=== PATIENT | female | born 1995 | race Caucasian/White ===

== ENCOUNTER 2016-09-22 03:01 | Emergency (ER) | payer OTHER ==
[~2016-09-22] VITALS: Ht 160 cm; Wt 62.5 kg
[2016-09-22 03:03] VITALS: TEMP 36.6; Ht 160 cm; Wt 62.5 kg
[2016-09-22] MEDS ORDERED: LORAZEPAM 1 MG TAB PO STA (03:27)
[2016-09-22] MEDS ORDERED: LORAZEPAM 2 MG/ML 1 ML VIAL IM STA (03:37)
[2016-09-22] MEDS ORDERED: HALOPERIDOL LACTATE 5 MG/ML 1 ML VIAL IM STA (03:37)
[2016-09-22 04:23] LABS: PREG INTERNAL NEGATIVE QC NEG CLEAR BACKGROUND; PREG INTERNAL POSITIVE QC POS CONTROL LINE
[2016-09-22 04:24] LABS: BUN/CREATININE RATIO 12.7 (10-20); CALCIUM 9.1 mg/dl (8.5-10.1); CREATININE 0.93 mg/dl (0.60-1.20); POTASSIUM 3.8 mmol/L (3.5-5.1)
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
[2016-09-22 08:08] VITALS: BP 115/82; PULSE 105; O2SAT 95
== END 2016-09-22 08:12 | disposition home or self-care (01) ==
LOC: C.EDA 03:01 → EDBD 03:01 → C.EDA 08:12
DX: F10.129 Alcohol abuse with intoxication, unspecified (principal); Y90.8 Blood alcohol level of 240 mg/100 ml or more

== ENCOUNTER → 2016-10-23 | Outpatient (CLI) | payer OTHER | END | disposition home or self-care (01) | LOC: C.LAB 04:20 | DX: Z02.83 Encounter for blood-alcohol and blood-drug test (principal) ==

== ENCOUNTER 2018-02-05 01:31 | Emergency (ER) | payer BC, OTHER ==
[~2018-02-05] VITALS: Ht 160 cm; Wt 70.0 kg
[2018-02-05] MEDS ORDERED: HALOPERIDOL LACTATE 5 MG/ML 1 ML VIAL IM STA ×2 (01:43→02:14)
[2018-02-05] MEDS ORDERED: LORAZEPAM 2 MG/ML 1 ML VIAL IM STA ×2 (01:43→02:14)
[2018-02-05 01:45] VITALS: TEMP 36.5; Ht 160 cm; Wt 70.0 kg
[2018-02-05] MEDS ORDERED: HALOPERIDOL LACTATE 5 MG/ML 1 ML VIAL ONE (01:47)
[2018-02-05 02:00] VITALS: O2SAT 96
[2018-02-05 02:37] LABS: CALCIUM 8.5 mg/dl (8.5-10.1); CREATININE 0.93 mg/dl (0.60-1.20); POTASSIUM 3.3 mmol/L (3.5-5.1)
--- NOTE | 2018-02-05 12:30 | DIAGNOSTIC IMAGING REPORT ---
L-SPINE MIN 4 VIEWS ROUTINE HISTORY: Pain LBP/R hip pain COMPARISON: None. FINDINGS: Nondisplaced cortical fracture sacrococcygeal junction. Age is uncertain. The lumbar spine is otherwise negative. No subluxation. Disc spaces are preserved. IMPRESSION: Nondisplaced cortical fracture sacrococcygeal junction. This is of uncertain age.. Otherwise negative lumbar spine. The above report was generated using voice recognition software. It may contain grammatical, syntax or spelling errors. Electronically signed by: Alec Jeff M.D. 02/05/2018 12:29 PM Dictated Date/Time: 02/05/2018 12:27 PM
--- NOTE | 2018-02-05 12:31 | DIAGNOSTIC IMAGING REPORT ---
R HIP UNILATERAL 2 VIEWS CLINICAL HISTORY: LBP/R hip pain pain COMPARISON: None. DISCUSSION: The bones and joint spaces appear intact. There is no evidence of fracture, dislocation or bony disease. Potential mild congenital dysplastic change. No evidence for acetabular protrusion. IMPRESSION: 1. No acute bony abnormality. 2. Mild dysplastic change presumably congenital. The above report was generated using voice recognition software. It may contain grammatical, syntax or spelling errors. Electronically signed by: Alec Jeff M.D. 02/05/2018 12:30 PM Dictated Date/Time: 02/05/2018 12:29 PM
[2018-02-05 12:50] VITALS: BP 98/59; PULSE 103; O2SAT 97
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
== END 2018-02-05 13:05 | disposition home or self-care (01) ==
LOC: EDBD 01:31 → C.EDC 01:31 → C.EDB 13:05
DX: F10.929 Alcohol use, unspecified with intoxication, unspecified (principal); S32.2XXA Fracture of coccyx, initial encounter for closed fracture; X58.XXXA Exposure to other specified factors, initial encounter; Y90.8 Blood alcohol level of 240 mg/100 ml or more; F17.200 Nicotine dependence, unspecified, uncomplicated

== ENCOUNTER 2018-02-28 04:52 | Emergency (ER) | payer BC ==
[~2018-02-28] VITALS: Ht 160 cm; Wt 69.4 kg
[2018-02-28 04:59] VITALS: TEMP 36.8; Ht 160 cm; Wt 69.4 kg
--- NOTE | 2018-02-28 05:29 | EMERGENCY ROOM VISIT NOTE ---
History Report prepared by [place]: Michelle Sewell Under the Supervision of: Dr. Elaine Burroughs D.O. First contact with patient: 05:07 Chief Complaint: DIZZY Stated Complaint: LIGHTHEADED, DIZZY, CONGESTION History of Present Illness The patient is a 23 year old female who presents to the Emergency Room with complaints of persistent sinus congestion that started 4 days ago. The patient rates her discomfort a 2/10 in severity. The patient reports her congestion is making her feel "off" and dizzy. She notes she has not slept well lately. She states she feels like she is in a bubble and it is making her anxious. She notes she was unable to hear people well and was not seeing things normally at work today. She reports she felt lightheaded as if she is going to pass out during work. She states the nurse at work took her blood pressure which was 174/ 118 and she recommended she get checked in the ED. The patient reports she has been under more stress recently since she works overnight shifts and is taking classes during the day. 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 The patient states she took a plan B pill yesterday morning after having unprotected sex. Source of History: patient Onset: 4 days ago Position: nose Symptom Intensity: 2/10 Quality: other (congestion) Timing: other (persistent) Note: Additional symptoms: lightheaded. Review of Systems See HPI for pertinent positives & negatives. A total of 10 systems reviewed and were otherwise negative. Past Medical & Surgical Surgical Problems: (1) Hx of tonsillectomy Family History Cancer Social History Smoking Status: Current Every Day Smoker Alcohol Use: none Marital Status: in relationship Occupation Status: employed Current/Historical Medications Scheduled Amoxicillin (Amoxil), 500 MG PO TID Amphetamine-Dextroamphetamine 15MG (Adderall Xr 15MG), 15 MG PO DAILY Allergies Coded Allergies: No Known Allergies (Verified , 02/28/18) Physical Exam Vital Signs Date Time Temp Pulse Resp B/P (MAP) Pulse Ox O2 Delivery O2 Flow Rate FiO2 02/28/18 06:29 100 20 162/106 100 Room Air 02/28/18 04:59 36.8 74 18 156/107 99 Room Air Physical Exam HEENT: Head - normocephalic and atraumatic Pupils are equal, round, and reactive to light. Extraocular eye muscles are intact, and sclera are anicteric. Nose - moist nasal mucosa without discharge. Mouth - moist buccal mucosa. Oropharynx is nonerythematous and there is no tonsillar exudate or edema noted. Ears - TMs clear. Neck: Supple; no JVD, nuchal rigidity, cervical lymphadenopathy, or auscultated bruits. Heart: Regular rate and rhythm. There is a normal S1 and S2 with no murmurs, clicks, or gallops appreciated. Lungs: Clear to auscultation bilaterally with no wheezes, rales, or rhonchi. Abdomen: Soft, completely nontender, nondistended, with good bowel sounds. There are no palpable pulsatile masses or hepatosplenomegaly. There is no guarding, rigidity, or rebound noted. Extremities: No evidence of cyanosis, clubbing, or edema. There are easily palpable peripheral pulses. Skin: warm and dry with good turgor and no rashes. Medical Decision & Procedures Laboratory Results Laboratory results per my review. ECG Per My Interpretation Indication: other (near syncope) Rate (beats per minute): 104 Rhythm: sinus tachycardia Findings: no acute ischemic change, no ectopy, other (no ST segment change) ED Course 0513: Past medical records reviewed. The patient was evaluated in room A9B. A complete history and physical exam was performed. A 12-lead EKG was obtained. 0600: I reevaluated the patient. She is refusing to have labs drawn here and states she wants to have them drawn by her PCP. I told her she would need clearance from her PCP and/or employee health to return to work since she was hypertensive and describes having a near syncopal event on the medical floor today. Medical Decision The patient is a 13 year old female who presents to the Emergency Department with sinus congestion and dizziness. Differential diagnosis includes near syncope, sinus infection, sinusitis, sleep deprivation, anxiety, panic. This is a 23-year-old female patient presents to the emergency department from work upstairs stating that she has a fullness and congestion in her head and ears and nearly passed out. The patient has a history of previous sinus infections. She admits that she became anxious as a result of feeling this pressure and congestion in her head and ears. She did try to take some Mucinex but this did not help. The patient described feeling lightheaded and nearly passing out while working as a JOURNEY[employer]. The patient is tearful and anxious on my physical exam and history taking. I requested that we get some laboratory studies on the patient to rule out causes as to why she may have been near syncopal. She declined wanting to have a workup done here and insisted upon being discharged home. I explained to the patient that she would need to follow -up with her PCP and/or employee health with regards to the episode of nearly passing out while at work. Explained that we could expedite the workup process here but she declined stating that she would feel more comfortable following up with her own doctor. I explained to the patient that I will treat her for a sinus infection with amoxicillin and encouraged her to use a decongestant such as Sudafed. She was told return to the emergency department at anytime if she has worsening symptoms. Medication Reconcilliation Current Medication List: was personally reviewed by me Blood Pressure Screening Patient's blood pressure: Elevated blood pressure Blood pressure disposition: Elevated BP felt to be situational Impression Primary Impression: Sinusitis Additional Impression: Near syncope Scribe Attestation The scribe's documentation has been prepared under my direction and personally reviewed by me in its entirety. I confirm that the note above accurately reflects all work, treatment, procedures, and medical decision making performed by me. Departure Information Dispostion Home / Self-Care Prescriptions Amoxicillin (AMOXIL) 500 Mg Cap 500 MG PO TID, #21 CAP Prov: Elaine Burroughs D.O. 02/28/18 Referrals No Doctor, Assigned (PCP) Patient Instructions My [facility] Additional Instructions You will need medical clearance from your PCP and employee health to return to work Amoxil every 8 hours for the sinus infection Take sudafed for the nasal congestion Problem Qualifiers Primary Impression: Sinusitis Sinusitis location: maxillary Chronicity: acute Recurrence: non-recurrent Qualified Codes: J01.00 - Acute maxillary sinusitis, unspecified
[2018-02-28] MEDS ORDERED: AMOX500C3 PO (06:12)
[2018-02-28] MEDS ORDERED: AMPH15CA7 PO (06:16)
[2018-02-28 06:29] VITALS: BP 162/106; PULSE 100; O2SAT 100
== END 2018-02-28 06:30 | disposition home or self-care (01) ==
LOC: C.EDB 04:53 → C.EDA 06:30
DX: J01.00 Acute maxillary sinusitis, unspecified (principal); R55 Syncope and collapse; F17.200 Nicotine dependence, unspecified, uncomplicated

== ENCOUNTER 2023-08-17 17:07 | Inpatient (IN) ==
[2023-08-17 18:38] LABS: Basophils # (auto) 0.06 K/uL (0.00-0.20); Basophils % (auto) 0.6 %; Eosinophils # (auto) 0.15 K/uL (0.00-0.50); Eosinophils % (auto) 1.4 %; Hematocrit (blood only) 38.6 % (37.0-47.0); Hemoglobin 12.8 g/dl (12.0-16.0); Immature Granulocytes # (auto) 0.08 K/uL (0.01-0.20); Immature Granulocytes % (auto) 0.8 %; Lymphocytes # (auto) 1.56 K/uL (1.20-3.40); Lymphocytes % (auto) 14.6 %; Mean Corpuscular Hemoglobin 30.5 pg (25.0-34.0); Mean Corpuscular Hgb Conc 33.2 g/dL (32.0-36.0); Mean Corpuscular Volume 91.9 fL (80.0-100.0); Mean Platelet Volume 11.3 fL (9.4-12.4); Monocytes # (auto) 0.73 K/uL (0.11-0.59); Monocytes % (auto) 6.8 %; Neutrophils # (auto) 8.08 K/uL (1.40-6.50); Neutrophils % (auto) 75.8 %; Platelet Count 256 K/uL (130-400); RDW Coefficient of Variation 11.9 % (11.5-14.5); RDW Standard Deviation 39.7 fL (36.4-46.3); White Blood Count 10.66 K/ul (4.8-10.8)
[2023-08-17 18:40] LABS: Total Protein Urine Random 10.6 mg/dl (0-11.9)
[2023-08-17 18:46] LABS: Creatinine Urine Random 65.7 mg/dl; Protein Creatinine Ratio Urine 0.2 (0-0.2)
[2023-08-17 18:50] LABS: Albumin Globulin Ratio 1.2 (0.9-2); Albumin Level 3.7 gm/dl (3.4-5.0); Bilirubin,Total 0.3 mg/dl (0.2-1.0); Calcium 9.1 mg/dl (8.6-10.3); Creatinine Clr Calc Pharmacy 148.6 ml/min; Est GFR (Non-African American) 122.5 ml/min; Globulin 3.1 gm/dl (2.5-4.0); Potassium 4.1 mmol/L (3.5-5.1); Total Protein 6.8 gm/dl (6.0-8.3)
[2023-08-17] MEDS ORDERED: LIDOCAINE 1% LOCAL 20 ML VIAL INFIL PRN (20:30)
[2023-08-17] MEDS ORDERED: OXYTOCIN 30 UNITS/NSS 30 UNITS/500 ML BAG IV PRN (20:30)
--- NOTE | 2023-08-17 20:53 | History & Physical Report ---
Date of Service August 17, 2023 Assessment & Plan (1) Gestational hypertension: Plan: Induction of labor with Cytotec for ripening History of Present Illness Chief Complaint: high blood pressure Primary Care Provider: Bess King MD 28 F P0000 at 37.4 weeks admitted after being seen earlier today by psych pro vider and found to have elevated blood pressure with swelling and headache. Her has been uncomplicated. GBS is negative. Allergies Allergy/AdvReac Type Severity Reaction Status Date / Time No Known Allergies Allergy Verified 08/17/23 18:27 Home Medications Medication Instructions Recorded Confirmed Type dextroamphetamine-amphetamine ER 30 mg PO QAM 10/20/20 08/17/23 History 30 mg 24hr capsule,extend release albuterol sulfate 90 mcg/actuation 2 puffs inhalation QID PRN 10/21/20 08/17/23 Rx aerosol inhaler (Ventolin HFA) shortness of breath or wheezing #8.5 grams vits no.124-ferrous fum 1 tab PO DAILY 08/17/23 08/17/23 History 27 mg iron-folic acid 800 mcg tablet ( Vitamin) Patient History Medical History No acute medical problems Anxiety ADHD Surgical History Hx of tonsillectomy History of appendectomy No significant past surgical history Social History Smoking Status: Current every day smoker Tobacco Type: Cigarettes Cigarettes Per Day: 5; Second Hand Exposure: Yes; Hx Alcohol Use: No Hx Substance Use: No Preferred Language: Uzbek Beliefs That Will Affect Care: None marital status: Single Current Living Situation: Significant Other current occupational status: unemployed Other Information That Helps Us Care for You: No Feels Safe at Home: Yes Safety Concerns: Feels Safe At This Time Assistive Devices: None 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 no RUQ pain. Musculoskeletal: lower extremities with 1+ pitting edema Skin: no rashes, warm and dry Neurologic: patellar DTR's 2+ bilat, sensation intact Psychiatric: A+Ox3, euthymic affect Genitourinary: no vaginal lesions, no adnexal mass normal external appearance Manual OB Exam: + cervical dilation fingertip, + cervical effacement 50% and + station high OB Exam Monitor Tracing: + external FHT monitor used, + external uterine monitor used, + category I and + normal FHT variability EFW 7.5 lbs Results & Data Vital Signs (Past 12 Hours) Vital Signs Temp Pulse Resp BP 08/17/23 19:44 100 H 08/17/23 19:44 138/92 08/17/23 19:14 101 H 08/17/23 19:14 147/94 H 08/17/23 18:44 102 H 08/17/23 18:44 137/98 08/17/23 18:00 104 H 08/17/23 18:00 167/100 H 08/17/23 17:49 103 H 08/17/23 17:49 143/91 H 08/17/23 17:40 100 H 08/17/23 17:40 147/93 H 08/17/23 17:31 105 H 08/17/23 17:31 163/101 H 08/17/23 17:27 36.8 C 18 08/17/23 17:20 109 H 151/92 H Laboratory Results Laboratory Results - last 72 hr 08/17/23 08/17/23 18:05 18:18 WBC 10.66 RBC 4.20 Hgb 12.8 Hct 38.6 MCV 91.9 MCH 30.5 MCHC 33.2 RDW Std Deviation 39.7 RDW Coeff of Anibal 11.9 Plt Count 256 MPV 11.3 Immature Gran % (Auto) 0.8 Neut % (Auto) 75.8 Lymph % (Auto) 14.6 Castro % (Auto) 6.8 Eos % (Auto) 1.4 Baso % (Auto) 0.6 Neut # (Auto) 8.08 H Lymph # (Auto) 1.56 Castro # (Auto) 0.73 H Eos # (Auto) 0.15 Baso # (Auto) 0.06 Immature Gran # (Auto) 0.08 Sodium 133 L Potassium 4.1 Chloride 102 Carbon Dioxide 22 Anion Gap 9 BUN 14 Creatinine 0.61 Est Cr Clr Drug Dosing 148.6 Est GFR ( Amer) 142.0 Est GFR (Non-Af Amer) 122.5 BUN/Creatinine Ratio 23.0 H Glucose 69 L Calcium 9.1 Total Bilirubin 0.3 AST 12 L ALT 10 Alkaline Phosphatase 99 Total Protein 6.8 Albumin 3.7 Globulin 3.1 Albumin/Globulin Ratio 1.2 Ur Random Creatinine 65.7 U Random Total Protein 10.6 Protein/Creatinin Ratio 0.2 Code Status & VTE Plan VTE Prophylaxis Plan VTE Prophylaxis will be ordered: No Monitoring External Monitor Cat 1 (1) Gestational hypertension Trimester: third trimester Qualified Code(s): O13.3 - Gestational [- induced] hypertension without significant proteinuria, third trimester
[2023-08-17] MEDS: miSOPROStoL 50 MCG TAB PO STA (23:30)
[2023-08-17] MEDS: miSOPROStoL 50 MCG TAB ONE (23:31)
[2023-08-18] MEDS: miSOPROStoL 50 MCG TAB PO SCH (03:25)
--- OUTSIDE RECORDS SUMMARY | 2023-08-18 08:27 | External Medical Summary | Summary of Care ---
Author Name Unknown Organization [facility] Address [address] [place] [facility] [place] [address] Phone [phone] Care Team Providers Care Desk Maker Name Role Phone Bess King MD Primary Care Provid er Reason for Visit * Reason Comments Return Visit Encounter Details Date Type Department Care Team (Late st Contact Info) Description 08/01/2023 9:30 AM EST [facility] [address] [place] [address] Leonora Bal CRNP [address] [place] [address] High-risk in third trimester*; Medication exposure during first trimester of ; complicated by tobacco use in third trimester; Attention deficit hyperactivity disorder (ADHD), combined type Allergies Active Allergy Reactions Criticality Noted Date Comments Pollen Medium 09/12/2020 documented as of this encounter (statuses as of 08/01/2023) Medications Medication Sig Dispensed Refills Start Date End Date Status -1 MG Oral Tablet Chewable Take by mouth. 0 Active Amphetamine-Dextroamph et ER 25 MG Oral Capsule Extended Release 24 Hour Take 1 Capsule by mouth in the morning. 0 Active Amphetamine-Dextroamph etamine 30 MG Oral Tablet Take 1 Tablet by mouth in the morning. Patient reports that this dose is only as needed . 0 Active Famotidine 20 MG Oral Tablet (Pepcid AC Maximum Strength) Take 1 Tablet by mouth in the morning and 1 Tablet before bedtime. 0 Active documented as of this encounter (statuses as of 08/01/2023) Active Problems Problem Noted Date Diagnosed Date Tobacco use 06/30/2023 Medication exposure during first trimester of pr egnancy 01/12/2023 Overview: Amphetamine-Dextroamphet (Adderall) in for ADHD. Follows with Psych, [facility] in [place], [place] Patient wishes to continue Adderall throughout her . States she has been on this for "a long time" and can't manage without it. Reports she is unable to function at work or home without this medication. Patient states she has not tried other medications because the Adderall is working well for her. States she sees her psych every 3 months-next visit is in February. She has not yet informed psych that she is . Discussed with patient the information below; discussed reducing dose during ; patient states she will consider this. Adderall (dextroamphetamine/amphetamine). Crosses Placenta. There are no adequate and well-controlled studies in women. Amphetamines should be used during only if the potential benefit justifies the potential risk to the fetus. Nonteratogenic Effects: Infants born to women who are dependent on amphetamines have an increased risk of premature delivery, low weight, and may experience symptoms of withdrawal (dysphoria, agitation, and significant lassitude). Last Assessment & Plan: She presents for a anatomy survey. She has a history of ADHD treated with Adderall as well as tobacco use. Labs reviewed: -- cffDNA low risk for aneuploidy We reviewed the results of today's ultrasound. The estimated weight is appropriate for gestational age. The visualized anatomy is unremarkable in appearance. The distal spine is suboptimally imaged secondary to position. The amniotic fluid amount appears normal. We discussed that ultrasound is not able to identify all anomalies, but it is reassuring that no anomalies were seen today. We reviewed the plan for serial follow-up of growth secondary to Adderall use. Tobacco use complicating 01/12/2023 Overview: Currently smoking 1/2 ppd Down from 1 ppd prior to Recommended cessation in .. Last Assessment & Plan: She continues to smoke. She reports variable amounts depending on the day. Cessation encouraged. We discussed some cessation aids. Attention deficit hyperactiv ity disorder (ADHD), combined type 01/12/2023 Overview: Managed with Adderall ER 25 mg daily Takes Adderall 30mg as needed. Patient states she took the as needed dose yesterday. Managed by (psych) [facility] in [place], [place] Patient reports that she usually ends up requiring the PRN dose in the afternoon at work; doesn't usually need this dose on day off. High-risk 01/12/2023 Last Assessment & Plan: 06/16/2023 Tdap Vaccine administered per clinic protocol. Pt given VIS(vaccine information sheet) Cathie Mcgrath LPN Compression fracture of T12 vertebra 11/26/2016 Spasm of thoracic back muscle 11/26/2016 Controlled substance agreement signed 11/20/2016 Estimated Date of Delivery Comme nts Yes 09/03/2023 Based on Ultraso und documented as of this encounter (statuses as of 08/01/2023) Resolved Problems Problem Noted Date Diagnosed Date Resolved Date Supervision of high risk pre gnancy in first trimester 01/17/2023 03/09/2023 Dysuria 09/26/2014 11/19/2016 Urinary frequency 09/26/2014 11/19/2016 Urgency of urination 09/26/2014 017 documented as of this encounter (statuses as of 08/01/2023) Immunizations Name Administration Dates Next Due HPV Vaccine, 9-Valent 06/21/2019 07/22/2019 PPD 05/19/2020, 0,01/17/2014,12/03 Pneumococcal Polysaccharide PPV23 (Pneumovax) 06/21/2019 Seasonal Influenza, PF, 6 M & above, IM , (FluLaval or Fluzone) 05/08/2020,04/02/2019 Seasonal Influenza, Split, I IV3, With Preserve, Inj 03/08/2017,06/13/2014 TDAP (age 10 and older)(Boostrix) 06/16/2023,05/2014 documented as of this encounter Social History Tobacco Use Types Packs/Day Years Used Date Smoking Tobacco: Every Day Cigarettes 0.5 4 Smokeless Tobacco: Never Comments:Smokes cigarettes a bout 1/2 ppd Prior to : 1 ppd Alcohol Use Standard Drinks/Week Comments Not Currently 0 (1 standard drink = 0.6 oz pur e alcohol) Occasionally on weekends AUDIT-C Answer Date Recorded Frequency of Alcohol Consumption 2-4 times a tue06/21/2019 Average Number of Drinks 1 or 2 019 Frequency of Binge Drinking Never 06/03 PHQ-2 Answer Date Recorded PHQ Adult Total Score 0 09/12/2020 Hunger Vital Sign Answer Date Recorded Within the past 12 months, y ou worried that your food would run out before you got the money to buy more. Never true 01/11/20 23 Within the past 12 months, t he food you bought just didn't last and you didn't have money to get more. Never true 2023 [place] Depression Scale Answer Date Recorded [place] Depression Scale Total 6 07/13/2023 The thought of harming myself has occurred to me . Never 07/13/2023 Estimated Date of Delivery Comme nts Yes 09/03/2023 Based on Ultraso und Sex and Gender Information Value Date Recorded Sex Assigned at Female 2023 3:26 PM EDT Gender Identity Female 2023 3:26 PM EDT Sexual Orientation Straight 10/28/2020 11 :44 AM EDT Job Start Date Occupation Industry Not on file Not on file Not on file documented as of this encounter Last Filed Vital Signs Vital Sign Reading Time Taken Comments Blood Pressure 136/88 08/01/2023 10:02 AM EST Pulse - - Temperature - - Respiratory Rate - - Oxygen Saturation - - Inhaled Oxygen Concentration - - Weight 91.2 kg (201 lb) 08/01/2023 10:02 AM EST Height - - Body Mass Index 35.61 07/13/2023 3:19 PM EST documented in this encounter Progress Notes * Leonora Bal CRNP - 08/01/2023 10:05 AM EST 35w2d Baby moving well. Educated on [facility] and when to call. Reviewed labor instructions. No regular ctx, leaking, bleeding. Given letter for work restrictions. Sees [facility] for routine growth scans. Discussed contraception - did not like irregular bleeding w/Nexplanon and had difficulty remembering OCPs. Discussed option of IUD, brochures for Paragard and Mirena provided. 1 week return, discussed GBS swab to be completed at that visit. 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 documented in this encounter Plan of Treatment Upcoming Encounters Date Type Department Care Team (Late st Contact Info) Description 08/11/2023 2:15 PM EST Office Visit Gynecology/Obstetrics [facility] [address] [place] [address] Leonora Bal CRNP [address] [place] [address] 08/18/2023 1:00 PM EST [facility] [address] [place] [id number] 08/18/2023 2:15 PM EST Office Visit Gynecology/Obstetrics [facility] [address] [place] [address] Vale Saleh CRNP [address] [place] [address] 08/25/2023 2:15 PM EST Office Visit Gynecology/Obstetrics [facility] [address] [place] [address] Leonora Bal CRNP [address] [place] [address] 09/01/2023 2:15 PM EST Office Visit Gynecology/Obstetrics Lamonte Manuel [address] [place] [address] Vale Saleh CRNP [address] [place] [address] Health Maintenance Due Date Last Done Comments GARDASIL-HPV IMMUNIZATION SERIES (2 - 3-dose series) 07/19/2019 06/21/2019 Pneumococcal Vaccine: Pediatrics (0 to 5 Years) and At-Risk Patients (6 to 64 Years) (2 - PCV) 06/21/2020 06/21/2019 Depression Screening 09/12/2021 09/12/2020 COVID-19 Vaccine (4 - 2022-24 season) 2023 05/21/2021, 11/05/2020, 10/15/2020 Influenza Vaccine (FLU shot) (#1) 2023 04/06/2022, 05/08/2020, 05/08/2020, Additional history exists Pap Smear 2026 2023, 06/03, 03/25/2016, Additional history exists DTaP,Tdap,and Td Vaccines (8 - Td or Tdap) 06/16/2033 06/16/2023, 06/13/2014, 02/17/1999, Additional history exists MENINGOCOCCAL (MENACTRA/MENVEO) Aged Out No longer eligible based on patient's age to complete this topic documented as of this encounter Medical Devices Not on filedocumented as of this encounter Visit Diagnoses Diagnosis High-risk in third trimester- Primary Medication exposure during first trimester of Supervision of other high-risk complicated by tobacco use in third trimester Attention deficit hyperactivity disorder (ADHD), combined type documented in this encounter Care Teams Desk Maker Relationship Specialty Start Date End Date Bess King MD [address] [place] [facility] [place] [address] PCP - General Family Medicine 07/01/22 documented as of this encounter
--- OUTSIDE RECORDS SUMMARY | 2023-08-18 08:27 | External Medical Summary | Summary of Care ---
Author Name Unknown Organization [facility] Address [address] [place] [address] Phone [phone] Care Team Providers Care Raw Stock Machine Feeder Name Role Phone Bess King MD Primary Care Provid er Encounter Details Date Type Department Care Team (Late st Contact Info) Description 08/03/2023 Telephone Gynecology/Obstetrics [facility] [address] [place] [address] Back[place], AVANI Rosas [address] [place] [address] Allergies Active Allergy Reactions Criticality Noted Date Comments Pollen Medium 09/12/2020 documented as of this encounter (statuses as of 08/03/2023) Medications Medication Sig Dispensed Refills Start Date End Date Status 19 29-1 MG Oral Tablet Chewable Take by mouth. [...] as of this encounter (statuses as of 08/03/2023) Active Problems Problem Noted Date Diagnosed Date Tobacco use 06/30/2023 Medication exposure during first trimester of pr egnancy 01/12/2023 Overview: Amphetamine-Dextroamphet (Adderall) in for ADHD. Follows with Psych, [facility] in [place], [place] Patient wishes to continue Adderall throughout [...] as needed dose yesterday. Managed by (psych) [facility] in [place], [place] Patient reports that she usually ends up [...] as of this encounter (statuses as of 08/03/2023) Resolved Problems Problem Noted Date Diagnosed Date Resolved Date Supervision of high risk pre gnancy in first trimester 01/17/2023 03/09/2023 Dysuria 09/26/2014 11/19/2016 Urinary frequency 09/26/2014 11/19/2016 Urgency of urination 09/26/2014 017 documented as of this encounter (statuses as of 08/03/2023) Immunizations Name Administration Dates Next Due HPV [...] money to get more. Never true 2023 [place] Depression Scale Answer Date Recorded [place] Depression Scale Total 6 07/13/2023 The thought [...] on file documented as of this encounter Miscellaneous Notes * Telephone Encounter - Sydney Kulkarni LPN - 08/03/2023 1:22 PM EST Pt calling in again requesting letter for light duty. She states hands, and bilat lower extremity swelling. 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 She is wearing compression socks but feels the swelling is getting worse and not going down. She states the swelling is painful and she has been having a lot of back pain from standing, pushing her med cart andresidents. I reviewed with Leonora Bal who requested the pt contact her employer for the specifications oflight duty and what a letter would need to entail. Advised pt to contact her employer for this information and to send us a MyG so that we can forward the message to the provider to review and provide letter if able. Pt verbalized understanding. documented in this encounter Plan of Treatment Upcoming Encounters Date Type Department Care Team (Late st Contact Info) Description 08/11/2023 2:15 PM EST Office Visit Gynecology/Obstetrics [facility] [address] [place] [address] Leonora Bal CRNP [address] [place] [address] 08/18/2023 1:00 PM EST Imaging Maternal Medicine Imaging, Shyla [facility] [phone] 08/18/2023 2:15 PM EST Office Visit Gynecology/Obstetrics Lam[facility] Manuel [address] [place] [address] Vale Saleh CRNP [address] [place] [address] 08/25/2023 2:15 PM EST Office Visit Gynecology/Obstetrics Lam[facility] Manuel [address] [place] [address] Leonora Bal CRNP [address] [place] [address] 09/01/2023 2:15 PM EST Office Visit Gynecology/Obstetrics Lamonte Manuel [address] [place] [address] Vale Saleh CRNP [address] [place] [address] Health Maintenance Due Date Last Done Comments GARDASIL-HPV IMMUNIZATION SERIES (2 - 3-dose series) 07/19/2019 06/21/2019 Pneumococcal Vaccine: Pediatrics (0 to 5 Years) and At-Risk Patients (6 to 64 Years) (2 - PCV) 06/21/2020 06/21/2019 Depression Screening 09/12/2021 09/12/2020 COVID-19 Vaccine (2022-24 season) 2023 05/21/2021, 11/05/2020, 10/15/2020 Influenza Vaccine [...] Not on filedocumented as of this encounter Care Teams Raw Stock Machine Feeder Relationship Specialty Start Date End Date Bess King MD [address] [place] [address] PCP - General Family Medicine 07/01/22 documented as of this encounter
--- OUTSIDE RECORDS SUMMARY | 2023-08-18 08:27 | External Medical Summary | Summary of Care ---
Author Name Unknown Organization [facility] Address [address] [facility] [place] [address] Phone [phone] Care Team Providers Care Voice Data Communications Engineer Name Role Phone Bess King MD Primary Care Provid er Reason for Visit * Reason Comments Blood Pressure Check Encounter Details Date Type Department Care Team (Late st Contact Info) Description 08/12/2023 3:30 PM EST Immunization/Inj ection Gynecology/Obstetrics [facility] [address] [place] [address] Gw, Nurse Obgyn Injection [address] [place] [address] BP check* Allergies Active Allergy Reactions Criticality Noted Date Comments Pollen Medium 09/12/2020 documented as of this encounter (statuses as of 08/12/2023) Medications Medication Sig Dispensed Refills Start Date [...] as of this encounter (statuses as of 08/12/2023) Active Problems Problem Noted Date Diagnosed Date Tobacco use 06/30/2023 Medication exposure during first trimester of pr egnancy 01/12/2023 Overview: Amphetamine-Dextroamphet (Adderall) in for ADHD. Follows with Psych, [facility] in [place], [place] Patient wishes to continue Adderall throughout [...] needed dose yesterday. Managed by (psych) [facility] in [place], [place] Patient reports that she usually ends up [...] as of this encounter (statuses as of 08/12/2023) Resolved Problems Problem Noted Date Diagnosed Date Resolved Date Supervision of high risk pre gnancy in first trimester 01/17/2023 03/09/2023 Dysuria 09/26/2014 11/19/2016 Urinary frequency 09/26/2014 11/19/2016 Urgency of urination 09/26/2014 017 documented as of this encounter (statuses as of 08/12/2023) Immunizations Name Administration Dates Next Due HPV [...] money to get more. Never true 2023 [place] Depression Scale Answer Date Recorded [place] Depression Scale Total 6 07/13/2023 The thought [...] Sign Reading Time Taken Comments Blood Pressure 134/84 08/12/2023 3:43 PM EST Pulse - - Temperature - - Respiratory Rate - - Oxygen Saturation - - Inhaled Oxygen Concentration - - Weight - - Height - - Body Mass Index - - documented in this encounter Nursing Notes * Sydney Kulkarni LPN - 08/12/2023 3:50 PM EST BP check today- reviewed with Leonora Bal in office. Pt to f/u again with next OB visit and to call sooner with onset of [place]/vision changes, unexplained swelling, decreased movement, or new symptoms. Pt verbalized understanding. documented in this encounter Plan of Treatment Upcoming Encounters Date Type Department Care Team (Late st Contact Info) Description 08/18/2023 1:00 PM EST Imaging Maternal Medicine Imaging, Shyla Manuel [address] [place] [address] 08/18/2023 2:15 PM EST Office Visit Gynecology/Obstetrics [facility] [address] [place] [address] Vale Saleh CRNP [address] [place], [place] [address] 08/25/2023 2:15 PM EST Office Visit Gynecology/Obstetrics [facility] [address] [place], [place] [address] Leonora Bal CRNP [address] [place] [address] 09/01/2023 2:15 PM EST [facility] [address] [place] [address] Vale Saleh CRNP [address] [place] [address] Health Maintenance Due Date Last Done Comments [...] as of this encounter Visit Diagnoses Diagnosis BP check- Primary Screening for hypertension documented in this encounter Care Teams Voice Data Communications Engineer Relationship Specialty Start Date End Date Bess King MD [address] [place] [address] PCP - General Family Medicine 07/01/22 documented as of this encounter
--- OUTSIDE RECORDS SUMMARY | 2023-08-18 08:27 | External Medical Summary ---
Author Name Unknown Address Unknown Organization K01:[facility] - [address] [facility] [address] Laboratory Report Ordering Provider Test Date Status MALVIN BORDEN 08/11/2023 14:12:14 Final Observation Date Value Abnormality Reference (Units ) Status Streptococcus agalactiae DNA [Presence] in Specimen by NIKOLAI with probe detection 08/11/2023 14:12:14 Negative Negative Final No Group B Streptococcus det ected by culture-enhanced PCR (amplified probe).
The collection of vaginal/rectal swab specimen combinations (FDA approved specimen type) is optimal for the detection of Group B Streptococcus. Single source collection (vaginal only or rectal only) or alternate specimen sources may lead to false negative results. Performing Location [facility] - [address] [facility] [address]
--- OUTSIDE RECORDS SUMMARY | 2023-08-18 08:27 | External Medical Summary | Summary of Care ---
Author Name Unknown Organization [facility] Address [address] [address] Phone [phone] Care Team Providers Care Generator Rebuilder Name Role Phone Bess King MD Primary Care Provid er Reason for Visit * Reason Onset Date Comments Forms Request 08/11/2023 Encounter Details Date Type Department Care Team (Late st Contact Info) Description 08/11/2023 Telephone Gynecology/Obstetrics [facility] [address] [place] [address] Leonora Bal CRNP [address] [place] [address] Forms Request Allergies Active Allergy Reactions Criticality Noted Date Comments Pollen Medium 09/12/2020 documented as of this encounter (statuses as of 08/11/2023) Medications Medication Sig Dispensed Refills Start Date [...] as of this encounter (statuses as of 08/11/2023) Active Problems Problem Noted Date Diagnosed Date Tobacco use 06/30/2023 Medication exposure during first trimester of pr egnancy 01/12/2023 Overview: Amphetamine-Dextroamphet (Adderall) in for ADHD. Follows with Psych, [facility] in [place], [place] Patient wishes to continue Adderall throughout [...] as needed dose yesterday. Managed by (psych) [facility] in [place], [place] Patient reports that she usually ends [...] as of this encounter (statuses as of 08/11/2023) Resolved Problems Problem Noted Date Diagnosed Date Resolved Date Supervision of high risk pre gnancy in first trimester 01/17/2023 03/09/2023 Dysuria 09/26/2014 11/19/2016 Urinary frequency 09/26/2014 11/19/2016 Urgency of urination 09/26/2014 017 documented as of this encounter (statuses as of 08/11/2023) Immunizations Name Administration Dates Next Due HPV [...] money to get more. Never true 2023 [place] Depression Scale Answer Date Recorded [place] Depression Scale Total 6 07/13/2023 The thought [...] encounter Miscellaneous Notes * Telephone Encounter - Deisi Cruz LPN - 08/11/2023 2:34 PM EST Forms completed and on [facility]'s desk for signature. * Telephone Encounter - Deisi Cruz LPN - 08/11/2023 2:13 PM EST FMLA forms received 08/11/2023. Copy for patient and FOB. Would pt like forms faxed no Does pt need notified when done? yes Patient Phone Numbers documented in this encounter Plan of Treatment Upcoming Encounters Date Type Department Care Team (Ariel Contact Info) Description 08/12/2023 3:30 PM EST Immunization/Injec tion Gynecology/Obstetrics Lamonte Manuel [address] [place] [address] Gw, Nurse Obgyn Injection [address] [place] [address] 08/18/2023 1:00 PM EST Imaging Maternal Medicine Imaging, Shyla Manuel [address] [place] [phone] 08/18/2023 2:15 PM EST Office Visit Gynecology/Obstetrics Lamonte Manuel [address] [place] [address] Vale Saleh CRNP [address] [place] [address] 08/25/2023 2:15 PM EST Office Visit Gynecology/Obstetrics Lamonte Manuel [address] [place] [address] Backer, AVANI Rosas [address] [place] [address] 09/01/2023 2:15 PM EST Office Visit Gynecology/Obstetrics Lamonte Manuel [address] [place] [address] Vale Saleh CRNP [address] [place] [address] Health Maintenance Due Date Last Done Comments [...] filedocumented as of this encounter Care Teams Generator Rebuilder Relationship Specialty Start Date End Date Bess King MD [address] [place] [address] PCP - General Family Medicine 07/01/22 documented as of this encounter
--- OUTSIDE RECORDS SUMMARY | 2023-08-18 08:27 | External Medical Summary | Summary of Care ---
Author Name Unknown Organization [facility] Address [address] [place] [address] Phone [phone] Care Team Providers Care Carrot Tier Name Role Phone Bess King MD Primary Care Provid er Encounter Details Date Type Department Care Team (Late st Contact Info) Description 08/02/2023 Telephone Gynecology/Obstetrics [facility] [address] [place] [address] Backer, AVANI Rosas [address] [place] [address] Allergies Active Allergy Reactions Criticality Noted Date Comments Pollen Medium 09/12/2020 documented as of this encounter (statuses as of 08/02/2023) Medications Medication Sig Dispensed Refills Start Date [...] as of this encounter (statuses as of 08/02/2023) Active Problems Problem Noted Date Diagnosed Date Tobacco use 06/30/2023 Medication exposure during first trimester of pr egnancy 01/12/2023 Overview: Amphetamine-Dextroamphet (Adderall) in for ADHD. Follows with Psych, [facility] in [place], [place] Patient wishes to continue Adderall throughout [...] yesterday. Managed by (psych) [facility] in [place], [place] Patient reports that she usually ends up [...] as of this encounter (statuses as of 08/02/2023) Resolved Problems Problem Noted Date Diagnosed Date Resolved Date Supervision of high risk pre gnancy in first trimester 01/17/2023 03/09/2023 Dysuria 09/26/2014 11/19/2016 Urinary frequency 09/26/2014 11/19/2016 Urgency of urination 09/26/2014 017 documented as of this encounter (statuses as of 08/02/2023) Immunizations Name Administration Dates Next Due HPV [...] money to get more. Never true 2023 [place] Depression Scale Answer Date Recorded [place] Depression Scale Total 6 07/13/2023 The thought [...] Telephone Encounter - Sydney Kulkarni LPN - 08/02/2023 3:39 PM EST Pt calling in stating her work will not accept her note for light duty because it is not specific enough. 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 She is asking if the note can be more specific to standing restrictions and weight for pushing. Reviewed with Leonora Bal in office who states there are no real standing restrictions during and ok to push residents and move med cart. Can provide pt with OB restriction letter in addition to letter that was provided at office visit. Reviewed with pt and letter sent via MyG. Advised pt to sit and elevate during 15 minutes breaks along with lunch breaks, compression socks, and pushing lots of fluids. Pt verbalized understanding. documented in this encounter Plan of Treatment Upcoming Encounters Date Type Department Care Team (Late st Contact Info) Description 08/11/2023 2:15 PM EST Office Visit Gynecology/Obstetrics Lam[facility] Manuel [address] [place], [place] [address] Leonora Bal CRNP [address] [place] [address] 08/18/2023 1:00 PM EST Imaging Maternal Medicine Imaging, Shyla Manuel [address] [place] [address] 08/18/2023 2:15 PM EST Office Visit Gynecology/Obstetrics Lamonte Mais [address] [place], [place] [address] Vale Saleh CRNP [address] [place] [address] 08/25/2023 2:15 PM EST Office Visit Gynecology/Obstetrics Lamonte Mais [address] [place], [place] [address] BackLeonora hoyt CRNP [address] [place] [address] 09/01/2023 2:15 PM EST Office Visit Gynecology/Obstetrics Lamonte Mais [address] [place] [address] Vale Saleh CRNP [address] [place] [address] Health Maintenance Due Date Last Done Comments GARDASIL-HPV IMMUNIZATION SERIES (2 - 3-dose series) 07/19/2019 06/21/2019 Pneumococcal Vaccine: Pediatrics (0 to 5 Years) and At-Risk Patients (6 to 64 Years) (2 - PCV) 06/21/2020 06/21/2019 Depression Screening 09/12/2021 09/12/2020 COVID-19 Vaccine ( season) 2023 05/21/2021, 11/05/2020, 10/15/2020 Influenza Vaccine [...] filedocumented as of this encounter Care Teams Carrot Tier Relationship Specialty Start Date End Date Bess King MD [address] [place] [address] PCP - General Family Medicine 07/01/22 documented as of this encounter
--- OUTSIDE RECORDS SUMMARY | 2023-08-18 08:27 | External Medical Summary | Summary of Care ---
Author Name Unknown Organization [facility] Address [address] [place] [facility] [place] [facility] [place] [address] Phone [phone] Care Team Providers Care Rawhide Trimmer Name Role Phone Bess King MD Primary Care Provid er Reason for Visit * Reason Comments Return Visit Encounter Details Date Type Department Care Team (Late st Contact Info) Description 08/11/2023 2:15 PM EST [facility] [address] [place] [address] Leonora Bal CRNP [address] [place] [address] High-risk in third trimester*; Medication exposure during [...] (Adderall) in for ADHD. Follows with Psych, [facility] in [place], [place] Patient wishes to continue Adderall throughout [...] as needed dose yesterday. Managed by (psych) [facility] in [place], [place] Patient reports that she usually ends [...] money to get more. Never true 2023 [place] Depression Scale Answer Date Recorded [place] Depression Scale Total 6 07/13/2023 The thought [...] Sign Reading Time Taken Comments Blood Pressure 138/88 08/11/2023 2:02 PM EST Pulse - - Temperature - - Respiratory Rate - - Oxygen Saturation - - Inhaled Oxygen Concentration - - Weight 94.3 kg (208 lb) 08/11/2023 2:02 PM EST Height - - Body Mass Index 36.85 07/13/2023 3:19 PM EST documented in this encounter Progress Notes * Sydney Kulkarni LPN - 08/11/2023 2:00 PM EST 36w5d Denies vaginal bleeding/rom + movement Ongoing heartburn- taking pepcid * Leonora Bal CRNP - 08/11/2023 1:56 PM EST 36w5d Good activity. No regular ctx or leaking. Had some scant pink streaks when using the rest room, mild cramping. +heartburn. BP noted to be elevated - no proteinuria. Still w/HAs, unchanged. No vision changes or epigastric pain. +swelling, improved at work since on light duty. Discussed warning signs of preE and to call with any new concerns. Recommend BP check tomorrow. Has another growth scan next week. GBS collected today. Toolroom Keeper Documentation Provider requested naprapath. Name of naprapath: AVANI Slaughter LPN documented in this encounter Plan of Treatment Upcoming Encounters Date Type Department Care Team (Late st Contact Info) Description 08/12/2023 3:30 PM EST Immunization/Injec tion Gynecology/Obstetrics Lamonte Mais [address] [place] [address] Gw, Nurse Obgyn Injection [address] [place] [address] 08/18/2023 1:00 PM EST Imaging Maternal Medicine Imaging, Shyla Manuel [address] [place] [phone] 08/18/2023 2:15 PM EST Office Visit Gynecology/Obstetrics Lamonte Mais [address] [place] [address] Vale Saleh CRNP [address] [place] [address] 08/25/2023 2:15 PM EST Office Visit Gynecology/Obstetrics Lamonte Mais [address] [place] [address] Leonora Bal CRNP [address] [place] [address] 09/01/2023 2:15 PM EST Office Visit Gynecology/Obstetrics Lamonte Manuel [address] [place] [address] Vale Saleh CRNP [address] [place] [address] Pending Results Name Type Priority Associated Diagnoses Date /Time GROUP B STREP CULTURE/PCR Lab Routine High-risk in third trimester 08/11/2023 2:12 PM EST Health Maintenance Due Date Last Done Comments GARDASIL-HPV IMMUNIZATION SERIES (2 - 3-dose series) 07/19/2019 06/21/2019 Pneumococcal Vaccine: Pediatrics (0 to 5 Years) and At-Risk Patients (6 to 64 Years) (2 - PCV) 06/21/2020 06/21/2019 Depression Screening 09/12/2021 09/12/2020 COVID-19 Vaccine ( - 2022-24 season) 2023 05/21/2021, 11/05/2020, 10/15/2020 [...] Not on filedocumented as of this encounter Procedures Procedure Name Priority Date/Time Associated Diagnosis Comments URINALYSIS, POINT OF CARE (ENTER/EDIT) Routine 08/11/2023 High-risk in third trimester documented in this encounter Results * URINALYSIS, POINT OF CARE (ENTER/EDIT) (08/11/2023) Color, Urine Light Yellow Yellow or Light Yellow Clarity, Urine Clear Clear Glucose, Urine Negative Negative mg/dL Bilirubin, Urine Negative Negative Ketone, Urine Negative Negative mg/dL Specific [place], Urine 1.010 1.003 - 1.030 Blood, Urine Trace-intact Negative pH, Urine 7.0 5.0 - 7.5 units Protein, Urine Negative Negative mg/dL Urobilinogen, Urine 0.2 0.2 - 1.0 mg/dL Nitrite, Urine Negative Negative Esterase, Urine Negative Negative Urine 08/11/2023 Leonora VAR[facility] POINT O F CARE TEST ENTER/EDIT ORDERABLES documented in this encounter Visit Diagnoses Diagnosis High-risk in third trimester- Primary Medication exposure during first trimester of Supervision of other high-risk complicated by tobacco use in third trimester Attention deficit hyperactivity disorder (ADHD), combined type documented in this encounter Care Teams Rawhide Trimmer Relationship Specialty Start Date End Date Bess King MD [address] [place] [address] PCP - General Family Medicine 07/01/22 documented as of this encounter
--- OUTSIDE RECORDS SUMMARY | 2023-08-18 08:28 | External Medical Summary | Summary of Care ---
Author Name Unknown Organization [facility] Address [address] [address] Phone [phone] Care Team Providers Care Pharmacy Intern Name Role Phone Bess King MD Primary Care Provid er Reason for Visit * Reason Comments Return Visit Encounter Details Date Type Department Care Team (Late st Contact Info) Description 06/16/2023 2:15 PM EST Office Visit Gynecology/Obstetri [facility] [address] [place] [address] Leonora Bal CRNP [address] [place] [address] High-risk in third trimester*; Medication exposure during first trimester of ; complicated by tobacco use in third trimester; Attention deficit hyperactivity disorder (ADHD), combined type; Need for prophylactic vaccination with combined gocyhlmcrn-ygzcaqc-bbg tussis (DTP) vaccine Allergies Active Allergy Reactions Criticality Noted Date Comments Pollen Medium 09/12/2020 documented as of this encounter (statuses as of 06/16/2023) Medications Medication Sig Dispensed Refills Start Date [...] is only as needed . 0 Active documented as of this encounter (statuses as of 06/16/2023) Active Problems Problem Noted Date Diagnosed Date Medication exposure during first trimester of pr egnancy 01/12/2023 Overview: Amphetamine-Dextroamphet (Adderall) in for ADHD. Follows with Psych, [facility] [place] in [place], [place] Patient wishes to continue Adderall throughout [...] dose yesterday. Managed by (psych) [facility] [place] in [place], [place] Patient reports that she usually ends [...] as of this encounter (statuses as of 06/16/2023) Resolved Problems Problem Noted Date Diagnosed Date Resolved Date Supervision of high risk pre gnancy in first trimester 01/17/2023 03/09/2023 Dysuria 09/26/2014 11/19/2016 Urinary frequency 09/26/2014 11/19/2016 Urgency of urination 09/26/2014 017 documented as of this encounter (statuses as of 06/16/2023) Immunizations Name Administration Dates Next Due HPV [...] money to get more. Never true 2023 [place] Depression Scale Answer Date Recorded [place] Depression Scale Total 8 2023 The thought of harming myself has occurred to me . Never 2023 Estimated Date of Delivery Comme nts Yes [...] Sign Reading Time Taken Comments Blood Pressure 124/64 06/16/2023 1:53 PM EST Pulse - - Temperature - - Respiratory Rate - - Oxygen Saturation - - Inhaled Oxygen Concentration - - Weight 83.9 kg (185 lb) 06/16/2023 1:53 PM EST Height - - Body Mass Index 32.77 06/01/2023 4:30 PM EST documented in this encounter Progress Notes * Leonora Bal CRNP - 06/16/2023 1:56 PM EST 28w5d Doing well, completing labs today. Good movement, mostly at night. No cramping or bleeding. Follows with M for regular growth scans. Discussed [facility] and when to call. Accepts Tdap upon counseling. 2 week return AVANI Sheldon * Cathie Mcgrath LPN - 06/16/2023 1:54 PM EST Pt is currently 28w5d with an Estimated Date of Delivery: 09/03/23 - Denies concerns. Doing 1 hr gtt today. documented in this encounter Nursing Notes * Cathie Mcgrath LPN - 06/16/2023 2:05 PM EST 06/16/2023 Tdap Vaccine administered per clinic protocol. Pt given VIS(vaccine information sheet) Cathie Mcgrath LPN documented in this encounter Miscellaneous Notes * Assessment & Plan Note - Cathie Mcgrath LPN - 06/16/2023 2:05 PM EST Associated Problem(s): High-risk 06/16/2023 Tdap Vaccine administered per clinic protocol. Pt given VIS(vaccine information sheet) Cathie Mcgrath LPN documented in this encounter Plan of Treatment Upcoming Encounters Date Type Department Care Team (Late st Contact Info) Description 06/23/2023 1:00 PM EST Imaging Maternal Medicine Imaging, [place] [phone] 06/23/2023 1:00 PM EST Office Visit Lead Project Manager Obstetrics Maternal Medicine, [place] [address] Radha Soares, DO [address] [facility] [address] 06/30/2023 9:45 AM EST Office Visit Gynecology/Obstetrics [place] [address] Lily Ramirez PA-C [address] [place] [address] 07/21/2023 1:00 PM EST Imaging Maternal Medicine Imaging, Sh[place] Manuel [address] [place] [address] 08/18/2023 1:00 PM EST Imaging Maternal Medicine Imaging, [facility] [address] [place] [address] Health Maintenance Due Date Last Done Comments COVID-19 Vaccine (#1) 1994 GARDASIL-HPV IMMUNIZATION SERIES (2 - 3-dose series) 07/19/2019 06/21/2019 Pneumococcal Vaccine: Pediatrics (0 to 5 Years) and At-Risk Patients (6 to 64 Years) (2 - PCV) 06/21/2020 06/21/2019 Depression Screening 09/12/2021 09/12/2020 Influenza Vaccine (FLU shot) (#1) 2023 04/06/2022, 05/08/2020, 04/02/2019, Additional history exists Pap Smear 2026 2023, 06/03, 03/25/2016, Additional history exists DTaP,Tdap,and Td Vaccines (7 - Td or Tdap) 06/16/2033 06/16/2023, 06/13/2014, 05/16/1995, Additional history exists MENINGOCOCCAL (MENACTRA/MENVEO) Aged Out [...] Attention deficit hyperactivity disorder (ADHD), combined type Need for prophylactic vaccination with combined zyxlgfchyk-tozkkgg-najwzyhui (DTP) vaccine documented in this encounter Care Teams Pharmacy Intern Relationship Specialty Start Date End Date Bess King MD [address] [place] [address] PCP - General Family Medicine 07/01/22 documented as of this encounter
--- OUTSIDE RECORDS SUMMARY | 2023-08-18 08:28 | External Medical Summary | Summary of Care ---
Author Name Unknown Organization [facility] Address [address] [place] [address] Phone [phone] Care Team Providers Care Cut Out Operator Name Role Phone Bess King MD Primary Care Provid er Encounter Details Date Type Department Care Team (Late st Contact Info) Description 07/21/2023 1:00 PM EST Office Visit Director Of Housing And Energy Services Obstetrics Maternal Medicine, [address] [address] Radha Soares, DO [address] [place], [place] [id number] Medication exposure during first trimester of *; 34 weeks gestation of ; Ultrasound for screening for growth restriction Allergies Active Allergy Reactions Criticality Noted Date Comments Pollen Medium 09/12/2020 documented as of this encounter (statuses as of 07/25/2023) Medications Medication Sig Dispensed Refills Start Date [...] as of this encounter (statuses as of 07/25/2023) Active Problems Problem Noted Date Diagnosed Date Tobacco use 06/30/2023 Medication exposure during first trimester of pr egnancy 01/12/2023 Overview: Amphetamine-Dextroamphet (Adderall) in for ADHD. Follows with Psych, [facility] in [place], [place] Patient wishes to continue Adderall throughout [...] dose yesterday. Managed by (psych) [facility] in [place], [place] Patient reports that she usually ends up [...] as of this encounter (statuses as of 07/25/2023) Resolved Problems Problem Noted Date Diagnosed Date Resolved Date Supervision of high risk pre gnancy in first trimester 01/17/2023 03/09/2023 Dysuria 09/26/2014 11/19/2016 Urinary frequency 09/26/2014 11/19/2016 Urgency of urination 09/26/2014 017 documented as of this encounter (statuses as of 07/25/2023) Immunizations Name Administration Dates Next Due HPV [...] money to get more. Never true 2023 Eugene Depression Scale Answer Date Recorded Eugene Depression Scale Total 6 07/13/2023 The thought [...] on file documented as of this encounter Progress Notes * Radha Soares DO - 07/25/2023 9:47 AM EST Jessica presented today at 34w2d for an ultrasound for the following indications: Medication exposure during first trimester of 34 weeks gestation of Ultrasound for screening for growth restriction Ultrasound summary: Patient presented at 33w 5d for growth assessment. Normal growth with EFW 2280 g at 45%ile. Normal KEKE at 9.7 cm. Cephalic presentation. I reviewed the ultrasound images. Jessica was given the opportunity to meet with me if she had any questions. Please refer to the ultrasound report for additional details about today's ultrasound examination. RECOMMENDATIONS: Follow up with MFM for ultrasound as clinically indicated. See prior formal MFM consultation note. Thank you for allowing us to participate in the care of this patient. Please call with any questions. Radha Soares DO 07/25/2023 9:47 AM documented in this encounter Plan of Treatment Upcoming Encounters Date Type Department Care Team (Late st Contact Info) Description 07/28/2023 2:15 PM EST Office Visit Gynecology/Obstetrics Lamonte Manuel [address] [place] [address] Leonora Bal CRNP [address] [place] [address] 08/11/2023 2:15 PM EST Office Visit Gynecology/Obstetrics Lamonte Manuel [address] [place] [address] Leonora Bal CRNP [address] [place] [address] 08/18/2023 1:00 PM EST Imaging Maternal Medicine Imaging, [place] [phone] 08/18/2023 2:15 PM EST Office Visit Gynecology/Obstetrics Lamonte Manuel [address] [place] [address] Vale Saleh CRNP [address] [place] [address] 08/25/2023 2:15 PM EST Office Visit Gynecology/Obstetrics Lamonte Manuel [address] [place] [address] Leonora Bal CRNP [address] [place] [address] 09/01/2023 2:15 PM EST Office Visit Gynecology/Obstetrics Lamonte Manuel [address] [place] [address] Vale Saleh CRNP [address] [place] [address] Health Maintenance Due Date Last Done Comments [...] as of this encounter Visit Diagnoses Diagnosis Medication exposure during first trimester of - Primary Supervision of other high-risk 34 weeks gestation of state, incidental Ultrasound for screening for growth restriction screening for growth retardation using ultrasonics documented in this encounter Care Teams Cut Out Operator Relationship Specialty Start Date End Date Bess King MD [address] [place] [address] PCP - General Family Medicine 07/01/22 documented as of this encounter
--- OUTSIDE RECORDS SUMMARY | 2023-08-18 08:28 | External Medical Summary | Summary of Care ---
Author Name Unknown Organization [facility] Address [address] [address] Phone [phone] Care Team Providers Care Recordist Chief Name Role Phone Bess King MD Primary Care Provid er Reason for Visit * Reason Comments Return Visit Encounter Details Date Type Department Care Team (Latest Contact Info) Description 07/13/2023 3:15 PM EST Office Visit Gynecology/Obstetric s Lamonte Manuel [address] [place] [address] Vale Saleh CRNP [address] [place] [address] High-risk in third trimester*; Medication exposure during first trimester of ; complicated by tobacco use in third trimester; Attention deficit hyperactivity disorder (ADHD), combined type Allergies Active Allergy Reactions Criticality Noted Date Comments Pollen Medium 09/12/2020 documented as of this encounter (statuses as of 07/13/2023) Medications Medication Sig Dispensed Refills Start Date [...] as of this encounter (statuses as of 07/13/2023) Active Problems Problem Noted Date Diagnosed Date Tobacco use 06/30/2023 Medication exposure during first trimester of pr egnancy 01/12/2023 Overview: Amphetamine-Dextroamphet (Adderall) in for ADHD. Follows with Psych, [facility] in [place], [place] Patient wishes to continue Adderall throughout [...] needed dose yesterday. Managed by (psych) [facility] in [place], [place] Patient reports that she usually ends up [...] as of this encounter (statuses as of 07/13/2023) Resolved Problems Problem Noted Date Diagnosed Date Resolved Date Supervision of high risk pre gnancy in first trimester 01/17/2023 03/09/2023 Dysuria 09/26/2014 11/19/2016 Urinary frequency 09/26/2014 11/19/2016 Urgency of urination 09/26/2014 017 documented as of this encounter (statuses as of 07/13/2023) Immunizations Name Administration Dates Next Due HPV [...] money to get more. Never true 2023 Ramsay Depression Scale Answer Date Recorded Ramsay Depression Scale Total 6 07/13/2023 The thought [...] Sign Reading Time Taken Comments Blood Pressure 128/86 07/13/2023 3:19 PM EST Pulse - - Temperature - - Respiratory Rate - - Oxygen Saturation - - Inhaled Oxygen Concentration - - Weight 87.1 kg (192 lb) 07/13/2023 3:19 PM EST Height 160 cm (5' 3") 07/13/2023 3:19 PM EST Body Mass Index 34.01 07/13/2023 3:19 PM EST documented in this encounter Progress Notes * Vale Saleh CRNP - 07/13/2023 3:31 PM EST 32w4d C/o low back pain, can get pretty painful at times. Heartburn at night. 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 +1 pitting on exam today. Urine has been cloudy, no UTI symptoms. BP higher at work than in this office. Advised to call with concerns if elevated at work again. Leg cramp last night, still sore now. Baby is active. No contractions, no bleeding or LOF. Urine culture today. Has growth u/s with MFM upcoming. AVANI Rdz * Deisi Cruz LPN - 07/13/2023 3:17 PM EST 32w4d Lower back pain, cloudy urine. Heartburn, Bl leg swelling, some headaches. Reports bp in 140/90 range at work. documented in this encounter Plan of Treatment Upcoming Encounters Date Type Department Care Team (Late st Contact Info) Description 07/21/2023 1:00 PM EST Imaging Maternal Medicine Imaging, Sh[place] Manuel [address] [place] [phone] 07/28/2023 2:15 PM EST Office Visit Gynecology/Obstetrics Lamonte Mais [address] [place] [address] Leonora Bal CRNP [address] [place] [address] 08/11/2023 2:15 PM EST Office Visit Gynecology/Obstetrics Lamonte Mais [address] [place] [address] Leonora Bal CRNP [address] [place] [address] 08/18/2023 1:00 PM EST Imaging Maternal Medicine Imaging, Shyla Mais [address] [place] [address] 08/18/2023 2:15 PM EST Office Visit Gynecology/Obstetrics [facility] [address] [place] [address] Vale Saleh CRNP [address] [place] [address] 08/25/2023 2:15 PM EST Office Visit Gynecology/Obstetrics [facility] [address] [place] [address] Leonora Bal CRNP [address] [place] [address] 09/01/2023 2:15 PM EST Office Visit Gynecology/Obstetrics [facility] [address] [place], [place] [address] Vale Saleh CRNP [address] [place] [address] Pending Results Name Type Priority Associated Diagnoses Date /Time CULTURE, URINE, QUANTITATIVE Lab Routine High-risk in third trimester 07/13/2023 3:36 PM EST Health Maintenance Due Date Last [...] type documented in this encounter Care Teams Recordist Chief Relationship Specialty Start Date End Date Bess King MD [address] [place] [address] PCP - General Family Medicine 07/01/22 documented as of this encounter
--- OUTSIDE RECORDS SUMMARY | 2023-08-18 08:28 | External Medical Summary | Summary of Care ---
Author Name Unknown Organization [facility] Address [address] [address] Phone [phone] Care Team Providers Care Filter Press Supervisor Name Role Phone Bess King MD Primary Care Provid er Reason for Visit * Reason Comments Return Visit Encounter Details Date Type Department Care Team (Late st Contact Info) Description 06/30/2023 10:30 AM EST Office Visit Gynecology/Obstetri [facility] [address] [place] [address] Leonora Bal CRNP [address] [place] [address] High-risk in third trimester*; Medication exposure during first trimester of ; complicated by tobacco use in third trimester; Attention deficit hyperactivity disorder (ADHD), combined type; Decreased movements in third trimester, single or unspecified fetus Allergies Active Allergy Reactions Criticality Noted Date Comments Pollen Medium 09/12/2020 documented as of this encounter (statuses as of 06/30/2023) Medications Medication Sig Dispensed Refills Start Date [...] as of this encounter (statuses as of 06/30/2023) Active Problems Problem Noted Date Diagnosed Date Tobacco use 06/30/2023 Medication exposure during first trimester of pr egnancy 01/12/2023 Overview: Amphetamine-Dextroamphet (Adderall) in for ADHD. Follows with Psych, [facility] in [place], [place] Patient wishes to continue Adderall throughout [...] by (psych) [facility] in [place], [place] Patient reports that she usually ends [...] as of this encounter (statuses as of 06/30/2023) Resolved Problems Problem Noted Date Diagnosed Date Resolved Date Supervision of high risk pre gnancy in first trimester 01/17/2023 03/09/2023 Dysuria 09/26/2014 11/19/2016 Urinary frequency 09/26/2014 11/19/2016 Urgency of urination 09/26/2014 017 documented as of this encounter (statuses as of 06/30/2023) Immunizations Name Administration Dates Next Due HPV [...] money to get more. Never true 2023 [place] Depression Scale Answer Date Recorded [place] Depression Scale Total 8 2023 The thought [...] Sign Reading Time Taken Comments Blood Pressure 138/74 06/30/2023 10:27 AM EST Pulse - - Temperature - - Respiratory Rate - - Oxygen Saturation - - Inhaled Oxygen Concentration - - Weight 85.7 kg (189 lb) 06/30/2023 10:27 AM EST Height 160 cm (5' 3") 06/30/2023 10:27 AM EST Body Mass Index 33.48 06/30/2023 10:27 AM EST documented in this encounter Progress Notes * Leonora Bal CRNP - 06/30/2023 10:27 AM EST 30w5d Denies leaking or bleeding. No ctx. Decreased movement x3 days; only felt baby move 2-3 times yesterday, and none since then. Didnot call OB as she did not know whether or not this was an emergency. +FHR with doppler, NST reactive for gestational age. Advised to call right away, day or night, for any concern w/decreased FM, reviewed FKC. Should alsocall with painful/regular ctx, bleeding, or leaking fluid. She is scheduled for a growth u/s with MFM in the coming weeks. 2 week return ASSESSMENT assessment with Non-stress Test completed on 06/30/2023 at 30w5d gestation for indication of decreased movement heart baseline: 150 bpm Variability: Moderate Decelerations: present x1 variable <10 sec, lance 120 Accelerations: present 10x10 Contractions: None NST start time: 1040 NST stop time: 1105 NST strip reviewed, interpreted, and approved by OB provider, AVANI Sheldon . NST strip stored in clinic storage file AVANI Sheldon * Sydney Kulkarni LPN - 06/30/2023 10:25 AM EST 30w5d Denies vaginal bleeding/rom Decreased movement for past 3 days- states has not felt baby move since yesterday and only 2-3 times then. documented in this encounter Plan of Treatment Upcoming Encounters Date Type Department Care Team (Late st Contact Info) Description 07/13/2023 3:15 PM EST Office Visit Gynecology/Obstetrics [place] [address] Vale Saleh CRNP [address] [place] [address] 07/21/2023 1:00 PM EST [place] [phone] 07/28/2023 2:15 PM EST Office Visit Gynecology/Obstetrics Lamonte Manuel [address] [place] [address] Leonora Bal CRNP [address] [place] [address] 08/11/2023 2:15 PM EST Office Visit Gynecology/Obstetrics Lamonte [facility] [address] [place] [address] Leonora Bal CRNP [address] [place] [address] 08/18/2023 1:00 PM EST Imaging [facility] [place] [phone] 08/18/2023 2:15 PM EST Office Visit Gynecology/Obstetrics [facility] [address] [place] [address] Vale Saleh CRNP [address] [place] [address] 08/25/2023 2:15 PM EST Office Visit Gynecology/Obstetrics Lamonte [facility] [address] [place] [address] Leonora Bal CRNP [address] [place] [address] 09/01/2023 2:15 PM EST Office Visit Gynecology/Obstetrics [facility] [address] [place] [address] Vale Saleh CRNP [address] [place] [address] Health Maintenance Due Date Last Done Comments [...] Attention deficit hyperactivity disorder (ADHD), combined type Decreased movements in third trimester, single or unspecified fetus documented in this encounter Care Teams Filter Press Supervisor Relationship Specialty Start Date End Date Bess King MD [address] [place] [address] PCP - General Family Medicine 07/01/22 documented as of this encounter
--- OUTSIDE RECORDS SUMMARY | 2023-08-18 08:28 | External Medical Summary ---
Author Name Unknown Address Unknown Organization K01:[facility] - [address] [place] [address] Laboratory Report Ordering Provider Test Date Status JOHAN GAMING 06/29/2023 10:10:03 Final Observation Date Value Abnormality Reference (Units ) Status Glucose, 2-hr post glucose challenge 06/29/2023 10:10:03 144 70-154 (mg/dL) Final Performing Location [facility] - [address] [place] [address]
--- OUTSIDE RECORDS SUMMARY | 2023-08-18 08:28 | External Medical Summary ---
Author Name Unknown Address Unknown Organization K01:[facility] - [address] [place] [id number] Laboratory Report Ordering Provider Test Date Status MARISELABRITTNY 07/13/2023 15:36:53 Final Observation Date Value Abnormality Reference (Units) Status Bacteria identified in Specimen by Culture 07/13/2023 15:36:53 No significant growth Final Test: Culture, Urine, Quanti tative
Specimen Source: Urine, Clean Catch
Specimen Type: Urine
Specimen Date: 07/13/2023 3:36 PM
Result Date: 07/14/2023 4:30 PM
Result Status: Final result
Resulting Lab: LAB[facility]ATORY [facility]
[address]
[facility] [address]

CULTURE

No significant growth

null Performing Location LABORATORY [facility] - [address] [facility] [address]
--- OUTSIDE RECORDS SUMMARY | 2023-08-18 08:28 | External Medical Summary | Summary of Care ---
Author Name Unknown Organization [facility] Address [address] [place] [address] Phone [phone] Care Team Providers Care Drum Handler Name Role Phone Bess King MD Primary Care Provid er Reason for Visit * Reason Onset Date Comments Test Results 06/17/2023 Encounter Details Date Type Department Care Team (Late st Contact Info) Description 06/17/2023 Telephone Gynecology/Obstetrics [facility] [address] [place] [address] Lily Ramirez PA-C [address] [place] [address] Test Results Allergies Active Allergy Reactions Criticality Noted Date Comments Pollen Medium 09/12/2020 documented as of this encounter (statuses as of 06/17/2023) Medications Medication Sig Dispensed Refills Start Date [...] as of this encounter (statuses as of 06/17/2023) Active Problems Problem Noted Date Diagnosed Date Medication exposure during first trimester of pr egnancy 01/12/2023 Overview: Amphetamine-Dextroamphet (Adderall) in for ADHD. Follows with Psych, [facility] in [place] Patient wishes to continue Adderall throughout [...] as needed dose yesterday. Managed by (psych) [facility] in [place], [place] Patient reports that she usually ends [...] as of this encounter (statuses as of 06/17/2023) Resolved Problems Problem Noted Date Diagnosed Date Resolved Date Supervision of high risk pre gnancy in first trimester 01/17/2023 03/09/2023 Dysuria 09/26/2014 11/19/2016 Urinary frequency 09/26/2014 11/19/2016 Urgency of urination 09/26/2014 017 documented as of this encounter (statuses as of 06/17/2023) Immunizations Name Administration Dates Next Due HPV [...] money to get more. Never true 2023 [place] Depression Scale Answer Date Recorded [place] Depression Scale Total 8 2023 The thought [...] encounter Miscellaneous Notes * Telephone Encounter - Vickie Montes RN - 06/17/2023 8:55 AM EST Attempted to call patient. No answer, LVM to return call. * Telephone Encounter - Lily Ramirez PA-C - 06/17/2023 8:27 AM EST She is not anemic by labs, but she did not pass her 1 hour glucose. We need to complete 3 hour glucose. Please make aware and given instructions for testing including need to fast. Thank you, Lily Ramirez PA-C documented in this encounter Plan of Treatment Upcoming Encounters Date Type Department Care Team (Late st Contact Info) Description 06/23/2023 1:00 PM EST Imaging Maternal Medicine [facility], [address] [place] [address] 06/23/2023 1:00 PM EST Office Visit Light Technician Obstetrics Maternal Medicine, Shyla Manuel [address] [place] [address] Radha Soares, DO [address] [facility], [place] [address] 06/30/2023 9:45 AM EST Office Visit Gynecology/Obstetrics Lamonte Manuel [address] [facility] [place] [address] Lily Ramirez PA-C [address] [place] [address] 07/21/2023 1:00 PM EST Imaging Maternal Medicine Imaging, [place] [address] 08/18/2023 1:00 PM EST Imaging Maternal Medicine Imaging, Shyla [facility] [place] [phone] Scheduled Orders Name Type Priority Associated Diagnoses Orde r Schedule GESTATIONAL GLUCOSE TOLERANCE, 3 HOUR Lab Routine Abnormal glucose tolerance in mother complicating Expected: 06/17/2023, Expires: 06/17/2024 Health Maintenance Due Date Last Done Comments [...] as of this encounter Visit Diagnoses Diagnosis Abnormal glucose tolerance in mother complicating - Primary Abnormal maternal glucose tolerance, complicating , childbirth, or the puerperium, unspecified as to episode of care documented in this encounter Care Teams Drum Handler Relationship Specialty Start Date End Date Bess King MD [address] [place] [address] PCP - General Family Medicine 07/01/22 documented as of this encounter
--- OUTSIDE RECORDS SUMMARY | 2023-08-18 08:28 | External Medical Summary ---
Author Name Unknown Address Unknown Organization [id number]:[facility] - [address] [place] [address] Laboratory Report Ordering Provider Test Date Status JOHAN GAMING 06/29/2023 08:09:48 Final Based on ACOG guideline, ges tational diabetes mellitus is diagnosed when any of the following is met:
Fasting is greater than or equal to 95 mg/dL
1 hour is greater than or equal to 180 mg/dL
2 hour is greater than or equal to 155 mg/dL
3 hour is greater than or equal to 140 mg/dL Observation Date Value Abnormality Reference (Units ) Status Glucose, fasting 06/29/2023 08:09:48 88 70- 94 (mg/dL) Final Performing Location [facility] - [address] [place] [address]
--- OUTSIDE RECORDS SUMMARY | 2023-08-18 08:28 | External Medical Summary ---
Author Name Unknown Address Unknown Organization [id number]:[facility] - [address] [place] [address] Laboratory Report Ordering Provider Test Date Status JOHAN GAMING 06/16/2023 14:47:32 Final Observation Date Value Abnormality Reference (Units ) Status SYNC LEUKOCYTES IN BLOOD BY AUTOMATED COUNT 06/16/2023 14:47:32 8.82 4.00-10.80 (K/uL) Final Segs 06/16/2023 14:47:32 78.6 Above high normal 40.0-75.0 (%) Final Lymphs % 06/16/2023 14:47:32 12.6 Below low normal 18.0-42.0 (%) Final Monos 06/16/2023 14:47:32 6.2 1.0-11.0 (%) Final Eosinophils 06/16/2023 14:47:32 1.5 0.0-6.0 (%) Final Basos 06/16/2023 14:47:32 0.3 0.0-2.0 (%) Final Immature Granulocyte, Percent 06/16/2023 14:47:32 0.8 0.0-2.0 (%) Final Absolute Segs 06/16/2023 14:47:32 6.93 1.80-7.70 (K/uL) Final Lymphs, absolute 06/16/2023 14:47:32 1.11 1.00-4.80 (K/ul) Final Monos, Abs 06/16/2023 14:47:32 0.55 0.00-1.10 (K/uL) Final Eos, Abs 06/16/2023 14:47:32 0.13 0.00-0.70 (K/uL) Final Basos, Abs 06/16/2023 14:47:32 0.03 0.00-0.20 (K/uL) Final Immature Granulocytes, Number 06/16/2023 14:47:32 0.07 0.00-0.20 (K/uL) Final Performing Location [facility] - [address] [place] [address]
--- OUTSIDE RECORDS SUMMARY | 2023-08-18 08:28 | External Medical Summary | Summary of Care ---
Author Name Unknown Organization [facility] Address [address] [place] [address] Phone [phone] Care Team Providers Care Telephone Answering Service Operator Name Role Phone Bess King MD Primary Care Provid er Encounter Details Date Type Department Care Team (Late st Contact Info) Description 06/23/2023 1:00 PM EST Office Visit Senior Sourcing Manager Obstetrics Maternal Medicine, [address] [address] Radha Soares, DO [address] [place], [place] [id number] Medication exposure during first trimester of *; 29 weeks gestation of Allergies Active Allergy Reactions Criticality Noted Date Comments Pollen Medium 09/12/2020 documented as of this encounter (statuses as of 06/24/2023) Medications Medication Sig Dispensed Refills Start Date [...] as of this encounter (statuses as of 06/24/2023) Active Problems Problem Noted Date Diagnosed Date Medication exposure during first trimester of pr egnancy 01/12/2023 Overview: Amphetamine-Dextroamphet (Adderall) in for ADHD. Follows with Psych, [facility] in [place], [place] Patient wishes to continue Adderall throughout [...] as needed dose yesterday. Managed by (psych) [facility] in [place], [place] Patient reports that she usually ends up [...] as of this encounter (statuses as of 06/24/2023) Resolved Problems Problem Noted Date Diagnosed Date Resolved Date Supervision of high risk pre gnancy in first trimester 01/17/2023 03/09/2023 Dysuria 09/26/2014 11/19/2016 Urinary frequency 09/26/2014 11/19/2016 Urgency of urination 09/26/2014 017 documented as of this encounter (statuses as of 06/24/2023) Immunizations Name Administration Dates Next Due HPV [...] money to get more. Never true 2023 [place] Depression Scale Answer Date Recorded [place] Depression Scale Total 8 2023 The thought [...] Progress Notes * Radha Soares DO - 06/24/2023 9:14 AM EST Jessica presented for an ultrasound for the following indications: Medication exposure during first trimester of 29 weeks gestation of Ultrasound summary: Patient presented at 29w 5d for growth assessment. Normal growth with EFW 1422 g at 33%ile. Normal KEKE at 7.6 cm. Cephalic presentation. I reviewed the ultrasound images. Jessica was given the opportunity to meet with me if she had any questions. Please refer to the ultrasound report for additional details about today's ultrasound examination. RECOMMENDATIONS: Recommend follow up ultrasound with MFM in 4-6 weeks for growth secondary to above indications. See prior formal MFM consultation note. Thank you for allowing us to participate in the care of this patient. Please call with any questions. Radha Soarse DO 06/24/2023 9:14 AM documented in this encounter Plan of Treatment Upcoming Encounters Date Type Department Care Team (Late st Contact Info) Description 06/29/2023 8:00 AM EST [facility] [address] [place] [phone] ManuelValentina santiago [address] [place] [address] 06/30/2023 9:45 AM EST Office Visit Gynecology/Obstetrics Lamonte Manuel [address] [place] [address] Lily Ramirez PA-C [address] [place] [address] 07/13/2023 3:15 PM EST Office Visit Gynecology/Obstetrics Lamonte Manuel [address] [place] [address] Vale Saleh CRNP [address] [place] [address] 07/21/2023 1:00 PM EST Imaging Maternal Medicine Imaging, [place] [phone] 07/28/2023 2:15 PM EST Office Visit Gynecology/Obstetrics Lamonte Manuel [address] [place] [address] Leonora Bal CRNP [address] [place] [address] 08/18/2023 1:00 PM EST Imaging Maternal Medicine Imaging, Shyla [place] [phone] Health Maintenance Due Date Last Done Comments [...] of - Primary Supervision of other high-risk 29 weeks gestation of state, incidental documented in this encounter Care Teams Telephone Answering Service Operator Relationship Specialty Start Date End Date Bess King MD [address] [place] [address] PCP - General Family Medicine 07/01/22 documented as of this encounter
--- OUTSIDE RECORDS SUMMARY | 2023-08-18 08:28 | External Medical Summary ---
Author Name Unknown Address Unknown Organization [id number]:[facility] - [address] [place] [address] Laboratory Report Ordering Provider Test Date Status JOHAN GAMING 06/29/2023 11:12:14 Final Observation Date Value Abnormality Reference (Units ) Status Glucose [Mass/volume] in Serum or Plasma --3 hours post dose glucose 06/29/2023 11:12:14 73 70-139 (mg/dL) Final Performing Location [facility] - [address] [place] [address]
--- OUTSIDE RECORDS SUMMARY | 2023-08-18 08:28 | External Medical Summary | Summary of Care ---
Author Name Unknown Organization [facility] Address [address] [place] [place] [place] [address] Phone [phone] Care Team Providers Care Manager Enterprise Content Management Name Role Phone Bess King MD Primary Care Provid er Reason for Visit * Reason Onset Date Comments Test Results 06/17/2023 Encounter Details Date Type Department Care Team (Late st Contact Info) Description 06/17/2023 Telephone Gynecology/Obstetrics [facility] [address] [place] [address] Lily Ramirez PA-C [address] [place] [address] Test Results Allergies Active Allergy Reactions Criticality Noted Date Comments Pollen Medium 09/12/2020 documented as of this encounter (statuses as of 06/20/2023) Medications Medication Sig Dispensed Refills Start Date [...] as of this encounter (statuses as of 06/20/2023) Active Problems Problem Noted Date Diagnosed Date Medication exposure during first trimester of pr egnancy 01/12/2023 Overview: Amphetamine-Dextroamphet (Adderall) in for ADHD. Follows with Psych, [facility] in [place] Patient wishes to continue Adderall throughout [...] as needed dose yesterday. Managed by (psych) [facility] in [place], [place] Patient reports that she usually ends up [...] as of this encounter (statuses as of 06/20/2023) Resolved Problems Problem Noted Date Diagnosed Date Resolved Date Supervision of high risk pre gnancy in first trimester 01/17/2023 03/09/2023 Dysuria 09/26/2014 11/19/2016 Urinary frequency 09/26/2014 11/19/2016 Urgency of urination 09/26/2014 017 documented as of this encounter (statuses as of 06/20/2023) Immunizations Name Administration Dates Next Due DTP/HIB (Tetramune) 05/16/1995, 5,1994,09/1993 HPV Vaccine, 9-Valent 06/21/2019 07/22/2019 Hepatitis B, 0-19 yrs 1994,1994,01/01 MMR - Measles/Mumps/Rubella Vaccine 05/16/1995 OPV - Polio Virus Vaccine (Oral) 995,1994,1994,12/1993 PPD 05/19/2020, 0,01/17/2014,12/03,02/21/1995 Pneumococcal Polysaccharide PPV23 (Pneumovax) 06/21/2019 Seasonal Influenza, [...] money to get more. Never true 2023 Micro Depression Scale Answer Date Recorded Micro Depression Scale Total 8 2023 The thought [...] encounter Miscellaneous Notes * Telephone Encounter - Haris King RN - 06/20/2023 11:14 AM EST Patient returned call, patient aware and verbalizes understanding Patient would like scheduled next 06/29 at 8 am. Please add to lab scheduled Thanks Haris King RN * Telephone Encounter - Vickie Montes RN [...] Medicine Imaging, Shyla Mais [address] [place] [phone] 06/23/2023 1:00 PM EST Office Visit Manager Of Engineering Obstetrics Maternal Medicine, Shyla Manuel [address] [place] [address] Radha Soares, DO [address] [place] [address] 06/30/2023 9:45 AM EST Office Visit Gynecology/Obstetrics Lamonte Manuel [address] [place] [address] Lily Ramirez PA-C [address] [place] [address] 07/21/2023 1:00 PM EST Imaging Maternal Medicine Imaging, Shyla Manuel [address] [place] [phone] 08/18/2023 1:00 PM EST Imaging Maternal Medicine Imaging, Shyla Manuel [address] [place] [phone] Scheduled Orders Name Type Priority Associated Diagnoses [...] care documented in this encounter Care Teams Manager Enterprise Content Management Relationship Specialty Start Date End Date Bess King MD [address] [place] [address] PCP - General Family Medicine 07/01/22 documented as of this encounter
--- OUTSIDE RECORDS SUMMARY | 2023-08-18 08:28 | External Medical Summary | Summary of Care ---
Author Name Unknown Organization [facility] Address [address] [place] [address] Phone [phone] Care Team Providers Care Mercantile Agent Name Role Phone Bess King MD Primary Care Provid er Reason for Visit * Reason Comments Outpatient Testing Encounter Details Date Type Department Care Team (Late st Contact Info) Description 06/16/2023 1:50 PM EST Laboratory Laboratory, [facility] [address] [place] [phone] [facility] [address] [place] [address] High-risk in second trimester Allergies Active Allergy Reactions Criticality Noted Date [...] (Adderall) in for ADHD. Follows with Psych, [facility] in [place], [place] Patient wishes to continue Adderall throughout [...] as needed dose yesterday. Managed by (psych) [facility] in [place], [place] Patient reports that she usually ends up [...] money to get more. Never true 2023 [place] Depression Scale Answer Date Recorded [place] Depression Scale Total 8 2023 The thought [...] on file documented as of this encounter Plan of Treatment Upcoming Encounters Date Type Department Care Team (Late st Contact Info) Description 06/23/2023 1:00 PM EST Imaging Maternal Medicine Imaging, Shyla Manuel [facility] [address] [place] [phone] 06/23/2023 1:00 PM EST Office Visit Boat Camp Operator Obstetrics Maternal Medicine, [place] [address] Radha Soares, DO [address] [facility] [place] [address] 06/30/2023 9:45 AM EST Office Visit Gynecology/Obstetrics Lamonte Manuel [address] [place] [address] Lily Ramirez PA-C [address] [place] [address] 07/21/2023 1:00 PM EST Imaging Maternal Medicine Imaging, Shyla Manuel [address] [place] [phone] 08/18/2023 1:00 PM EST Imaging Maternal Medicine Imaging, Shyla Manuel [address] [place] [phone] Pending Results Name Type Priority Associated Diagnoses Date /Time SYPHILIS ANTIBODY SCREEN WITH REFLEX TO RPR Lab Routine High-risk in second trimester 06/16/2023 2:47 PM EST CBC WITH WBC DIFFERENTIAL AND ANEMIA REFLEX WORKUP Lab Routine High-risk in second trimester 06/16/2023 2:47 PM EST 50-G GESTATIONAL GLUCOSE, 1 HOUR Lab Routine High-risk in second trimester 06/16/2023 2:47 PM EST SYPHILIS ANTIBODY SCREEN Lab Routine High-risk in second trimester 06/16/2023 2:47 PM EST ANEMIA CBC Lab Routine High-risk in second trimester 06/16/2023 2:47 PM EST DIFFERENTIAL, AUTOMATED Lab Routine High-risk in second trimester 06/16/2023 2:47 PM EST ANEMIA REFLEX CHEMISTRY HOLD Lab Routine High-risk in second trimester 06/16/2023 2:47 PM EST Health Maintenance Due Date Last [...] this encounter Visit Diagnoses Diagnosis High-risk in second trimester documented in this encounter Care Teams Mercantile Agent Relationship Specialty Start Date End Date Bess King MD [address] [place] [address] PCP - General Family Medicine 07/01/22 documented as of this encounter
--- OUTSIDE RECORDS SUMMARY | 2023-08-18 08:28 | External Medical Summary | Summary of Care ---
Author Name Unknown Organization [facility] Address [address] [place] [address] Phone [phone] Care Team Providers Care Machine Filler Servicer Name Role Phone Bess King MD Primary Care Provid er Reason for Visit * Reason Comments Outpatient Testing Encounter Details Date Type Department Care Team (Late st Contact Info) Description 06/29/2023 8:00 AM EST Laboratory Laboratory, [facility] [address] [place] [address] [facility] [address] [place] [address] Abnormal glucose tolerance in mother complicating Allergies Active Allergy Reactions Criticality Noted Date Comments Pollen Medium 09/12/2020 documented as of this encounter (statuses as of 06/29/2023) Medications Medication Sig Dispensed Refills Start Date [...] as of this encounter (statuses as of 06/29/2023) Active Problems Problem Noted Date Diagnosed Date Medication exposure during first trimester of pr egnancy 01/12/2023 Overview: Amphetamine-Dextroamphet (Adderall) in for ADHD. Follows with Psych, [facility] in [place], [place] Patient wishes to continue Adderall throughout [...] as needed dose yesterday. Managed by (psych) [facility] in [place], [place] Patient reports that she usually ends up [...] as of this encounter (statuses as of 06/29/2023) Resolved Problems Problem Noted Date Diagnosed Date Resolved Date Supervision of high risk pre gnancy in first trimester 01/17/2023 03/09/2023 Dysuria 09/26/2014 11/19/2016 Urinary frequency 09/26/2014 11/19/2016 Urgency of urination 09/26/2014 017 documented as of this encounter (statuses as of 06/29/2023) Immunizations Name Administration Dates Next Due HPV [...] money to get more. Never true 2023 [place] Depression Scale Answer Date Recorded [place] Depression Scale Total 8 2023 The thought [...] Description 06/30/2023 10:30 AM EST Office Visit Gynecology/[place]st[place] [address] Leonora Bal CRNP [address] [place] [address] 07/13/2023 3:15 PM EST Office Visit Gynecology/Obstetrics Lamonte Manuel [address] [place] [address] Vale Saleh CRNP [address] [place] [address] 07/21/2023 1:00 PM EST [place] [phone] 07/28/2023 2:15 PM EST Office Visit Gynecology/Obstetrics Lamonte Manuel [address] [place] [address] Backer, Leonora AVANI Ng [address] [place] [address] 08/18/2023 1:00 PM EST Imaging Maternal Medicine Imaging, Shyla Manuel [address] [place] [phone] Pending Results Name Type Priority Associated Diagnoses Date /Time GESTATIONAL GLUCOSE TOLERANCE, 3 HOUR Lab Routine Abnormal glucose tolerance in mother complicating 06/29/2023 8:09 AM EST 100-G GESTATIONAL GLUCOSE, FASTING Lab Routine Abnormal glucose tolerance in mother complicating 06/29/2023 8:09 AM EST 100-G GESTATIONAL GLUCOSE, 1 HOUR Lab Routine Abnormal glucose tolerance in mother complicating 06/29/2023 9:09 AM EST 100-G GESTATIONAL GLUCOSE, 2 HOUR Lab Routine Abnormal glucose tolerance in mother complicating 06/29/2023 10:10 AM EST 100-G GESTATIONAL GLUCOSE, 3 HOUR Lab Routine Abnormal glucose tolerance in mother complicating 06/29/2023 11:12 AM EST Health Maintenance Due Date Last Done [...] Diagnosis Abnormal glucose tolerance in mother complicating Abnormal maternal glucose tolerance, complicating , childbirth, or the puerperium, unspecified as to episode of care documented in this encounter Care Teams Machine Filler Servicer Relationship Specialty Start Date End Date Bess King MD [address] [place] [address] PCP - General Family Medicine 07/01/22 documented as of this encounter
--- OUTSIDE RECORDS SUMMARY | 2023-08-18 08:28 | External Medical Summary ---
Author Name Unknown Address Unknown Organization K01:LAB[facility]ORY [facility] - [address] [place] [address] Laboratory Report Ordering Provider Test Date Status JOHAN GAMING 06/16/2023 14:47:32 Final Observation Date Value Abnormality Reference (Units ) Status WBC, Total 06/16/2023 14:47:32 8.82 4.00-10.8 0 (K/uL) Final RBC 06/16/2023 14:47:32 3.80 3.85-5.15 (M/uL) Final Hemoglobin 06/16/2023 14:47:32 12.5 12.0-15.3 (g/dL) Final Anemia reflex testing trigge rs on a HGB < 12.0 for Females and HGB < 13.0 for Males in accordance with the WHO Anemia Guidelines
Anemia reflex testing triggers on a HGB < 12.0 for Females and HGB < 13.0 for Males in accordance with the WHO Anemia Guidelines HCT 06/16/2023 14:47:32 38.3 36.0-45.2 (%) Final MCV 06/16/2023 14:47:32 100.8 81.5-97.5 (fL) Final MCH 06/16/2023 14:47:32 32.9 27.0-34.0 (pg) Final MCHC 06/16/2023 14:47:32 32.6 32.0-36.0 (g/dL) Final RDW 06/16/2023 14:47:32 11.9 11.5-15.5 (%) Final Platelets 06/16/2023 14:47:32 288 140-400 (K /uL) Final MPV 06/16/2023 14:47:32 10.7 6.6-11.1 ( fL) Final Nucleated erythrocytes/100 leukocytes [Ratio] in Blood by Automated count 06/16/2023 14:47:32 0 <=0 (/100 WBCs) Fi nal Performing Location [facility] - [address] [place] [address]
--- OUTSIDE RECORDS SUMMARY | 2023-08-18 08:28 | External Medical Summary ---
Author Name Unknown Address Unknown Organization K0G:LAB[facility]ATORY [facility] - [address] [place] [address] Laboratory Report Ordering Provider Test Date Status JOHAN GAMING 06/16/2023 14:47:32 Final Observation Date Value Abnormality Reference (Units ) Status Glucose [Moles/volume] in Serum or Plasma --1 hour post 50 g glucose PO 06/16/2023 14:47:32 142 Above high normal 70-129 (mg/dL) Final Performing Location LAB[facility]ORY [facility] [address] - [address] [place] [address]
--- OUTSIDE RECORDS SUMMARY | 2023-08-18 08:28 | External Medical Summary | Summary of Care ---
Author Name Unknown Organization [facility] Address [address] [facility] [place] [address] Phone [phone] Care Team Providers Care Milk Truck Driver Name Role Phone Bess King MD Primary Care Provid er Reason for Visit * Reason Onset Date Comments Test Results 06/17/2023 Encounter Details Date Type Department Care Team (Late st Contact Info) Description 06/17/2023 Telephone Gynecology/Obstetrics [facility] [address] [place] [address] Lily Ramirez PA-C [address] [place] [address] Test Results Allergies Active Allergy Reactions Criticality [...] (Adderall) in for ADHD. Follows with [facility], [facility] [place] Patient wishes to continue Adderall throughout [...] as needed dose yesterday. Managed by (psych) [facility] [place], [place] Patient reports that she usually ends up [...] money to get more. Never true 2023 [place] Depression Scale Answer Date Recorded [place] Depression Scale Total 8 2023 The thought [...] encounter Miscellaneous Notes * Telephone Encounter - Beth Browne OSA - 06/20/2023 12:40 PM EST Scheduled. * Telephone Encounter - Haris King RN [...] 1:00 PM EST Imaging Maternal Medicine Imaging, [facility] [phone] 06/23/2023 1:00 PM EST Office Visit Justice Professor Obstetrics Maternal Medicine, [facility] [address] [facility] [place] [address] Radha Soares, DO [address] [place] [address] 06/29/2023 8:00 AM EST Laboratory Laboratory, [facility] [place] [phone] [facility] [address] [facility] [place] [address] 06/30/2023 9:45 AM EST Office Visit Gynecology/Obstetrics [facility] [place] [address] Lily Ramirez PA-C [address] [place] [address] 07/21/2023 1:00 PM EST Imaging Maternal Medicine Imaging, Shyla Manuel [address] [place] [phone] 08/18/2023 1:00 PM EST Imaging Maternal Medicine Imaging, Shyla Manuel [address] [place] [address] Scheduled Orders Name Type Priority Associated Diagnoses [...] care documented in this encounter Care Teams Milk Truck Driver Relationship Specialty Start Date End Date Bess King MD [address] [facility] [place] [phone] PCP - General Family Medicine 07/01/22 documented as of this encounter
--- OUTSIDE RECORDS SUMMARY | 2023-08-18 08:28 | External Medical Summary | Summary of Care ---
Author Name Unknown Organization [facility] Address [address] [place] [address] Phone [phone] Care Team Providers Care Adventure Guide Name Role Phone Bess King MD Primary Care Provid er Encounter Details Date Type Department Care Team (Late st Contact Info) Description 06/23/2023 1:00 PM EST Office Visit Fitness Studies Teacher Obstetrics Maternal Medicine, [address] [address] Radha Soares, DO [address] [place], [place] [phone] Medication exposure during first trimester of *; [...] (Adderall) in for ADHD. Follows with Psych, [facility] in [place], [place] Patient wishes to continue Adderall throughout [...] as needed dose yesterday. Managed by (psych) [facility] in [place], [place] Patient reports that she usually ends up [...] 06/24/2023) Immunizations Name Administration Dates Next Due DTP/HIB [...] money to get more. Never true 2023 [place] Depression Scale Answer Date Recorded [place] Depression Scale Total 8 2023 The thought [...] of this encounter Progress Notes * Radha Soares, DO - 06/24/2023 9:14 AM EST Jessica [...] call with any questions. Radha Soares DO 06/24/2023 9:14 AM documented in this encounter Plan of Treatment Upcoming Encounters Date Type Department Care Team (Late st Contact Info) Description 06/29/2023 8:00 AM EST Laboratory [facility], [facility] [address] [place] [phone] [facility] [address] [place] [address] 06/30/2023 9:45 AM EST Office Visit Gynecology/Obstetrics [facility] [address] [place] [address] Lily Ramirez PA-C [address] [place] [address] 07/13/2023 3:15 PM EST Office Visit Gynecology/Obstetrics [facility] [address] [place] [address] Vale Saleh CRNP [address] [place] [address] 07/21/2023 1:00 PM EST Imaging Maternal Medicine Imaging, [facility] [address] [place] [address] 07/28/2023 2:15 PM EST Office Visit Gynecology/Obstetrics [facility] [address] [place] [address] Leonora Bal CRNP [address] [place] [address] 08/18/2023 1:00 PM EST Imaging Maternal Medicine Imaging, [facility] [place] [phone] Health Maintenance Due Date Last Done [...] incidental documented in this encounter Care Teams Adventure Guide Relationship Specialty Start Date End Date Bess King MD [address] [facility] [place], [place] [phone] PCP - General Family Medicine 07/01/22 documented as of this encounter
--- OUTSIDE RECORDS SUMMARY | 2023-08-18 08:28 | External Medical Summary ---
Author Name Unknown Address Unknown Organization K01:[facility] - [address] [place] [address] Laboratory Report Ordering Provider Test Date Status JOHAN GAMING 06/16/2023 14:47:32 Final Observation Date Value Abnormality Reference (Units ) Status Treponema pallidum Ab [Presence] in Serum by Immunoassay 06/16/2023 14:47:32 Nonreactive Nonreactive Final No serologic evidence of syp hilis. No additional testing clinicially indicated at this time. Consider repeat testing in 2-4 weeks if acute or primary syphilis is suspected. Performing Location [facility] - [address] [place] [address]
--- OUTSIDE RECORDS SUMMARY | 2023-08-18 08:28 | External Medical Summary | Summary of Care ---
Author Name Unknown Organization [facility] Address [address] [facility] [place] [address] Phone [phone] Care Team Providers Care Naturopath Name Role Phone Bess King MD Primary Care Provid er Reason for Visit * Reason Comments Return Visit Encounter Details Date Type Department Care Team (Latest Contact Info) Description 06/01/2023 4:30 PM EST Office Visit Gynecology/Obstetric s [facility] [address] [place] [address] Lily Ramirez PA-C [address] [place] [address] High-risk in second trimester*; Medication exposure during first trimester of ; complicated by tobacco use in second trimester; Attention deficit hyperactivity disorder (ADHD), combined type Allergies Active Allergy Reactions Criticality Noted Date Comments Pollen Medium 09/12/2020 documented as of this encounter (statuses as of 06/01/2023) Medications Medication Sig Dispensed Refills Start Date [...] as of this encounter (statuses as of 06/01/2023) Active Problems Problem Noted Date Diagnosed Date Medication exposure during first trimester of pr egnancy 01/12/2023 Overview: Amphetamine-Dextroamphet (Adderall) in for ADHD. Follows with Psych, [facility] in [place], [place] Patient wishes to continue Adderall throughout [...] dose yesterday. Managed by (psych) [facility] in [place], [place] Patient reports that she usually ends up requiring the PRN dose in the afternoon at work; doesn't usually need this dose on day off. High-risk 01/12/2023 Compression fracture of T12 vertebra 11/26/2016 Spasm of thoracic back muscle 11/26/2016 Controlled substance agreement signed 11/20/2016 Estimated Date of Delivery Comme nts Yes 09/03/2023 Based on Ultraso und documented as of this encounter (statuses as of 06/01/2023) Resolved Problems Problem Noted Date Diagnosed Date Resolved Date Supervision of high risk pre gnancy in first trimester 01/17/2023 03/09/2023 Dysuria 09/26/2014 11/19/2016 Urinary frequency 09/26/2014 11/19/2016 Urgency of urination 09/26/2014 017 documented as of this encounter (statuses as of 06/01/2023) Immunizations Name Administration Dates Next Due HPV Vaccine, 9-Valent 06/21/2019 07/22/2019 PPD 05/19/2020, 0,01/17/2014,12/03 Pneumococcal Polysaccharide PPV23 (Pneumovax) 06/21/2019 SEASONAL INFLUENZA, PF, 6 M & Above, IM , (FLULAVAL or FLUZONE) 05/08/2020,04/02/2019 Seasonal Influenza, Split, I IV3, With Preserve, Inj 03/08/2017,06/13/2014 TDAP (age 10 and older)(Boostrix) 06/13/2014 documented as of this encounter Social History [...] money to get more. Never true 2023 [place] Depression Scale Answer Date Recorded [place] Depression Scale Total 8 2023 The thought [...] Sign Reading Time Taken Comments Blood Pressure 116/70 06/01/2023 4:30 PM EST Pulse - - Temperature - - Respiratory Rate - - Oxygen Saturation - - Inhaled Oxygen Concentration - - Weight 81.5 kg (179 lb 9.6 oz) 06/01/2023 4:30 P M EST Height 160 cm (5' 3") 06/01/2023 4:30 PM EST Body Mass Index 31.81 06/01/2023 4:30 PM EST documented in this encounter Progress Notes * Lily Ramirez PA-C - 06/01/2023 5:01 PM EST 26w4d Following with MFM for growth given medication use in . Reviewed third tri labs. Glucola with next visit. Counseled on FKC, advised call with any concerns of <10 movements/2hrs. She does note anterior placenta. Has been experiencing nose bleeds, reviewed management. Advised PCP evaluation if does improve withtreatments discussed. Denies bleeding, LOF, contractions. FM present. RTC in 2 weeks Lily Ramirez PA-C * Swapna Hadley LPN - 06/01/2023 4:33 PM EST 26w4d 28wk packet given. Increase in nose bleeds, pt denies any concerns. documented in this encounter Plan of Treatment Upcoming Encounters Date Type Department Care Team (Late st Contact Info) Description 06/16/2023 1:50 PM EST Laboratory Laboratory, [facility] [address] [place] [phone] [place] [address] [facility] [place] [address] 06/16/2023 2:15 PM EST Office Visit Gynecology/Obstetrics [facility] [address] [place] [address] Backer, AVANI Rosas [address] [place] [address] 06/23/2023 1:00 PM EST Imaging Maternal Medicine Imaging, Shyla Maipamela Ochoa [address] [place] [phone] 07/21/2023 1:00 PM EST Imaging Maternal Medicine Imaging, Shyla Mais Don [facility] [place] [address] 08/18/2023 1:00 PM EST Imaging Maternal Medicine Imaging, Shyla [place] [address] [facility] [place] [phone] Scheduled Orders Name Type Priority Associated Diagnoses Orde r Schedule SYPHILIS ANTIBODY SCREEN WITH REFLEX TO RPR Lab Routine High-risk in second trimester Expected: 06/15/2023 (Approximate), Expires: 06/01/2024 CBC WITH WBC DIFFERENTIAL AND ANEMIA REFLEX WORKUP Lab Routine High-risk in second trimester Expected: 06/15/2023 (Approximate), Expires: 06/01/2024 50-G GESTATIONAL GLUCOSE, 1 HOUR Lab Routine High-risk in second trimester Expected: 06/15/2023 (Approximate), Expires: 06/01/2024 Health Maintenance Due Date Last Done Comments COVID-19 Vaccine (#1) 1994 GARDASIL-HPV IMMUNIZATION SERIES (2 - 3-dose series) 07/19/2019 06/21/2019 Pneumococcal Vaccine: Pediatrics (0 to 5 Years) and At-Risk Patients (6 to 64 Years) (2 - PCV) 06/21/2020 06/21/2019 Depression Screening 09/12/2021 09/12/2020 Influenza Vaccine (FLU shot) (#1) 2023 04/06/2022, 05/08/2020, 04/02/2019, Additional history exists DTaP,Tdap,and Td Vaccines (6 - Td or Tdap) 06/13/2024 06/13/2014, 05/16/1995, 1994, Additional history exists Pap Smear 2026 2023, 06/03, 03/25/2016, Additional history exists MENINGOCOCCAL (MENACTRA/MENVEO) Aged Out No longer eligible based on patient's age to complete this topic documented as of this encounter Medical Devices Not on filedocumented as of this encounter Visit Diagnoses Diagnosis High-risk in second trimester- Primary Medication exposure during first trimester of Supervision of other high-risk complicated by tobacco use in second trimester Attention deficit hyperactivity disorder (ADHD), combined type documented in this encounter Care Teams Naturopath Relationship Specialty Start Date End Date Bess King MD [address] [place] [address] PCP - General Family Medicine 07/01/22 documented as of this encounter
--- OUTSIDE RECORDS SUMMARY | 2023-08-18 08:28 | External Medical Summary | Summary of Care ---
Author Name Unknown Organization [facility] Address [address] [facility] [address] Phone [phone] Care Team Providers Care Manager Steel Name Role Phone Bess King MD Primary Care Provid er Reason for Visit * Reason Comments Return Visit Encounter Details Date Type Department Care Team (Latest Contact Info) Description 07/13/2023 3:15 PM EST Office Visit Gynecology/Obstetric s Lamonte Manuel [address] [place] [address] Vale Saleh CRNP [address] [place] [address] High-risk in third trimester*; Medication exposure during [...] (Adderall) in for ADHD. Follows with Psych, [facility] in [place], [place] Patient wishes to continue Adderall throughout [...] as needed dose yesterday. Managed by (psych) [facility] in [place], [place] Patient reports that she usually ends up [...] money to get more. 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[employer]), but noticing BLE edema when [...] Shyla Manuel [address] [place] [phone] 07/28/2023 2:15 PM EST Office Visit Gynecology/Obstetrics Lamonte Mais [address] [place] [address] Leonora Bal CRNP [address] [place] [address] 08/11/2023 2:15 PM EST Office Visit Gynecology/Obstetrics Lam[facility] Mais [address] [place] [address] Leonora Bal CRNP [address] [place] [address] 08/18/2023 1:00 PM EST Imaging Maternal Medicine Imaging, Shyla Mais [address] [place] [address] 08/18/2023 2:15 PM EST Office Visit Gynecology/Obstetrics [facility] [address] [place] [address] Vale Saleh CRNP [address] [place] [address] 08/25/2023 2:15 PM EST Office Visit Gynecology/Obstetrics [facility] [address] [place] [address] Leonora Bal CRNP [address] [place] [address] 09/01/2023 2:15 PM EST Office Visit Gynecology/Obstetrics [facility] [address] [place], [place] [address] Vale Saleh CRNP [address] [place] [address] Pending Results Name Type Priority Associated Diagnoses [...] type documented in this encounter Care Teams Manager Steel Relationship Specialty Start Date End Date Bess King MD [address] [place] [address] PCP - General Family Medicine 07/01/22 documented as of this encounter
--- OUTSIDE RECORDS SUMMARY | 2023-08-18 08:29 | External Medical Summary | Summary of Care ---
Author Name Unknown Organization [facility] Address [address] [facility] [place] [address] Phone [phone] Care Team Providers Care Personnel And Payroll Technician Name Role Phone Bess King MD Primary Care Provid er Reason for Visit * Reason Comments Return Visit Encounter Details Date Type Department Care Team (Latest Contact Info) Description 05/04/2023 2:15 PM EDT Office Visit Gynecology/Obstetric s [facility] [address] [place] [address] Vale Saleh CRNP [address] [place] [address] High-risk in second trimester*; Medication exposure during first trimester of ; complicated by tobacco use in second trimester; Attention deficit hyperactivity disorder (ADHD), combined type Allergies Active Allergy Reactions Criticality Noted Date Comments Pollen Medium 09/12/2020 documented as of this encounter (statuses as of 05/04/2023) Medications Medication Sig Dispensed Refills Start Date [...] as of this encounter (statuses as of 05/04/2023) Active Problems Problem Noted Date Diagnosed Date Medication exposure during first trimester of pr egnancy 01/12/2023 Overview: Amphetamine-Dextroamphet (Adderall) in for ADHD. Follows with Psych, [facility] in [place], [place] Patient wishes to continue Adderall throughout [...] as needed dose yesterday. Managed by (psych) [facility] in [place], [place] Patient reports that she usually ends up requiring the PRN dose in the afternoon at work; doesn't usually need this dose on day off. High-risk 01/12/2023 Compression fracture of T12 vertebra 11/26/2016 Spasm of thoracic back muscle 11/26/2016 Controlled substance agreement signed 11/20/2016 Estimated Date of Delivery Comme nts Yes 09/03/2023 Based on Ultraso und documented as of this encounter (statuses as of 05/04/2023) Resolved Problems Problem Noted Date Diagnosed Date Resolved Date Supervision of high risk pre gnancy in first trimester 01/17/2023 03/09/2023 Dysuria 09/26/2014 11/19/2016 Urinary frequency 09/26/2014 11/19/2016 Urgency of urination 09/26/2014 017 documented as of this encounter (statuses as of 05/04/2023) Immunizations Name Administration Dates Next Due HPV [...] money to get more. Never true 2023 [place] Depression Scale Answer Date Recorded [place] Depression Scale Total 8 2023 The thought [...] Sign Reading Time Taken Comments Blood Pressure 110/60 05/04/2023 2:11 PM EDT Pulse - - Temperature - - Respiratory Rate - - Oxygen Saturation - - Inhaled Oxygen Concentration - - Weight 78.5 kg (173 lb) 05/04/2023 2:11 PM EDT Height 160 cm (5' 3") 05/04/2023 2:11 PM EDT Body Mass Index 30.65 05/04/2023 2:11 PM EDT documented in this encounter Progress Notes * Vale Saleh CRNP - 05/04/2023 2:31 PM EDT 22w4d No concerns. +FM. No contractions or bleeding, no LOF. Anatomy u/s was done with MFM. AVANI Rdz * Swapna Hadley LPN - 05/04/2023 2:15 PM EDT 22w4d Pt denies any concerns. documented in this encounter Plan of Treatment Upcoming Encounters Date Type Department Care Team (Late st Contact Info) Description 05/19/2023 11:45 AM EST Imaging Maternal Medicine Imaging, Shyla Manuel [address] [place] [phone] 06/01/2023 4:30 PM EST Office Visit Gynecology/Obstetrics [facility] [address] [place] [address] Lily Ramirez PA-C [address] [place] [address] 06/09/2023 1:45 PM EST Imaging Maternal Medicine Imaging, Shyla Manuel [address] [place] [address] 06/16/2023 2:15 PM EST Office Visit Gynecology/Obstetrics Lamonte Manuel [address] [place] [address] Leonora Bal CRNP [address] [place] [address] Health Maintenance Due Date Last Done Comments [...] type documented in this encounter Care Teams Personnel And Payroll Technician Relationship Specialty Start Date End Date Bess King MD [address] [place] [facility] [place] [address] PCP - General Family Medicine 07/01/22 documented as of this encounter
--- OUTSIDE RECORDS SUMMARY | 2023-08-18 08:29 | External Medical Summary | Summary of Care ---
Author Name Unknown Organization [facility] Address [address] [place] [address] Phone [phone] Care Team Providers Care Database Software Technician Name Role Phone Bess King MD Primary Care Provid er Encounter Details Date Type Department Care Team (Late st Contact Info) Description 05/19/2023 11:45 AM EST Office Visit Music Coordinator Obstetrics Maternal Medicine, [address] [place] [address] Radha Soares, DO [address] [place], [place] [phone] Medication exposure during first trimester of *; Ultrasound for screening for growth restriction; 24 weeks gestation of Allergies Active Allergy Reactions Criticality Noted Date Comments Pollen Medium 09/12/2020 documented as of this encounter (statuses as of 05/19/2023) Medications Medication Sig Dispensed Refills Start Date [...] as of this encounter (statuses as of 05/19/2023) Active Problems Problem Noted Date Diagnosed Date Medication exposure during first trimester of pr egnancy 01/12/2023 Overview: Amphetamine-Dextroamphet (Adderall) in for ADHD. Follows with Psych, [facility] in [place], [place] Patient wishes to continue Adderall throughout [...] as needed dose yesterday. Managed by (psych) [facility] in [place], [place] Patient reports that she usually ends up requiring the PRN dose in the afternoon at work; doesn't usually need this dose on day off. High-risk 01/12/2023 Compression fracture of T12 vertebra 11/26/2016 Spasm of thoracic back muscle 11/26/2016 Controlled substance agreement signed 11/20/2016 Estimated Date of Delivery Comme nts Yes 09/03/2023 Based on Ultraso und documented as of this encounter (statuses as of 05/19/2023) Resolved Problems Problem Noted Date Diagnosed Date Resolved Date Supervision of high risk pre gnancy in first trimester 01/17/2023 03/09/2023 Dysuria 09/26/2014 11/19/2016 Urinary frequency 09/26/2014 11/19/2016 Urgency of urination 09/26/2014 017 documented as of this encounter (statuses as of 05/19/2023) Immunizations Name Administration Dates Next Due DTP/HIB (Tetramune) 05/16/1995, 5,1994,09/1993 HPV Vaccine, 9-Valent 06/21/2019 07/22/2019 Hepatitis B, 0-19 yrs 1994,1994,01/01 MMR - Measles/Mumps/Rubella Vaccine 05/16/1995 OPV - Polio Virus Vaccine (Oral) 995,1994,1994,12/1993 PPD 05/19/2020, 0,01/17/2014,12/03,02/21/1995 Pneumococcal Polysaccharide PPV23 (Pneumovax) 06/21/2019 SEASONAL INFLUENZA, [...] money to get more. Never true 2023 [place] Depression Scale Answer Date Recorded [place] Depression Scale Total 8 2023 The thought [...] this encounter Progress Notes * Radha Soares, - 05/19/2023 1:24 PM EST Jessica presented today at 24w5d for an ultrasound for the following indications: Medication exposure during first trimester of Ultrasound for screening for growth restriction 24 weeks gestation of Ultrasound summary: Patient presented at 24w 5d for growth assessment. Normal growth with EFW 752 g at 50%ile. Normal KEKE at 9.1 cm. Breech presentation. I reviewed the ultrasound images. Jessica [...] call with any questions. Radha Soares DO 05/19/2023 1:24 PM documented in this encounter Plan of Treatment Upcoming Encounters Date Type Department Care Team (Late st Contact Info) Description 06/01/2023 4:30 PM EST Office Visit Gynecology/Obstetrics [facility] [address] [place] [address] Lily Ramirez PA-C [address] [place] [address] 06/09/2023 1:45 PM EST Imaging Maternal Medicine Imaging, Shyla Manuel [address] [place] [phone] 06/16/2023 2:15 PM EST Office Visit Gynecology/Obstetrics [facility] [address] [place] [address] Backer, AVANI Rosas [address] [place] [address] 06/23/2023 1:00 PM EST Imaging Maternal Medicine Imaging, Shyla Manuel [address] [place] [phone] 07/21/2023 1:00 PM EST Imaging Maternal Medicine Imaging, Shyla Manuel [address] [place] [phone] 08/18/2023 1:00 PM EST Imaging Maternal Medicine Imaging, Shyla Manuel [address] [place] [phone] Scheduled Orders Name Type Priority Associated Diagnoses Orde r Schedule MFM US PREG FOLLOW UP EACH FETUS Medical Imaging Routine Medication exposure during first trimester of Ultrasound for screening for growth restriction 24 weeks gestation of 6 Occurrences starting 05/19/2023 until 11/17/2023 Health Maintenance Due Date Last Done Comments [...] of - Primary Supervision of other high-risk Ultrasound for screening for growth restriction screening for growth retardation using ultrasonics 24 weeks gestation of state, incidental documented in this encounter Care Teams Database Software Technician Relationship Specialty Start Date End Date Bess King MD [address] [place] [address] PCP - General Family Medicine 07/01/22 documented as of this encounter
--- OUTSIDE RECORDS SUMMARY | 2023-08-18 08:29 | External Medical Summary | Summary of Care ---
Author Name Unknown Organization [facility] Address [address] [facility] [place] [address] Phone [phone] Care Team Providers Care Calibration Checker Name Role Phone Bess King MD Primary Care Provid er Reason for Visit * Reason Comments Return Visit Encounter Details Date Type Department Care Team Description 04/06/2023 [facility] [address] [place] [address] Lily Ramirez PA-C [address] [place] [address] High-risk in second trimester*; Medication exposure during first trimester of ; complicated by tobacco use in second trimester; Attention deficit hyperactivity disorder (ADHD), combined type Allergies Active Allergy Reactions Severity Noted Date Comments Pollen Medium 09/12/2020 documented as of this encounter (statuses as of 04/06/2023) Medications Medication Sig Dispensed Refills Start Date [...] as of this encounter (statuses as of 04/06/2023) Active Problems Problem Noted Date Medication exposure during first trimest er of 01/12/2023 Overview: Amphetamine-Dextroamphet (Adderall) in for ADHD. Follows with Psych, [facility] in [place], [place] Patient wishes to continue Adderall throughout her [...] and significant lassitude). Last Assessment & Plan: Advised patient to discuss medication with psych provider at [facility]. Consider reducing dose. MFM anatomy scan scheduled on 04/12/2023 Consider growth scans every 4-6 weeks after 20 weeks gestation for continued use. Tobacco use complicating 01/12 Overview: Currently smoking 1/2 ppd Down from 1 ppd prior to Recommended cessation in .. Last Assessment & Plan: Strongly advised patient to stop using tobacco. Discussed that tobacco use is associated with increased risks of spontaneous miscarriage, labor and delivery, premature rupture of membranes, growth restriction, stillbirth, SIDS postnatally, and placental abnormalities such as previa or abruption. Smoking cessation aids such as the nicotine patch or Zyban are considered safer alternatives to tobacco use during . Encouraged patient to discuss with her primary provider for prescribing. For patients who report smoking 1 pack per day of cigarettes or greater during , we recommend Maternal Medicine ultrasound for growth at 28-30 weeks. Advised patient that the most successful method to quit smoking is if those around you do not smoke as well. Attention deficit hyperactivity disorder (ADHD), combined type 01/12/2023 Overview: Managed with Adderall ER 25 mg daily Takes Adderall 30mg as needed. Patient states she took the as needed dose yesterday. Managed by (psych) [facility] in [place], [place] Patient reports that she usually ends up requiring the PRN dose in the afternoon at work; doesn't usually need this dose on day off. High-risk 01/12/2023 Compression fracture of T12 vertebra Spasm of thoracic back muscle 11/26/2016 Controlled substance agreement signed Estimated Date of Delivery Comme nts Yes 09/03/2023 Based on Ultraso und documented as of this encounter (statuses as of 04/06/2023) Resolved Problems Problem Noted Date Resolved Date Supervision of high risk in first trim katherine 01/17/2023 03/09/2023 Dysuria 09/26/2014 11/19/2016 Urinary frequency 09/26/2014 11/19/2016 Urgency of urination 09/26/2014 11/19/2016 documented as of this encounter (statuses as of 04/06/2023) Immunizations Name Administration Dates Next Due HPV [...] Tobacco: Never Comments:Smokes cigarettes a bout 1/2 ppdPrior to : 1 ppd Alcohol Use Standard Drinks/Week Comments Not Currently 0 (1 standard drink = 0.6 oz pur e alcohol) Occasionally on weekends Alcohol Habits Answer Date Recorded How often do you have a drink containing alcohol ? 2-4 times a month 06/21/2019 How many drinks containing a lcohol do you have on a typical day when you are drinking? 1 or 2 06/21/2019 How often do you have six or more drinks on one occasion? Never 06/21/2019 Food Insecurity Answer Date Recorded Within the past 12 months, y ou worried that your food would run out before you got money to buy more. Never true 2023 Within the past 12 months, t he food you bought just didn't last and you didn't have money to get more. Never true 2023 Estimated Date of Delivery Comme nts Yes 09/03/2023 Based on Ultraso und Sex Assigned at Date Recorded Female 2023 3:26 PM E DT Job Start Date Occupation Industry Not on file Not on file Not on file documented as of this encounter Last Filed Vital Signs Vital Sign Reading Time Taken Comments Blood Pressure 116/68 04/06/2023 4:28 PM EDT Pulse - - Temperature - - Respiratory Rate - - Oxygen Saturation - - Inhaled Oxygen Concentration - - Weight 74.8 kg (165 lb) 04/06/2023 4:28 PM EDT Height 160 cm (5' 3") 04/06/2023 4:28 PM EDT Body Mass Index 29.23 04/06/2023 4:28 PM EDT documented in this encounter Progress Notes * Lily Ramirez PA-C - 04/06/2023 4:44 PM EDT 18w4d Had COVID-19 a week ago. Slowly recovering. Pt states mostly congestion now. We discussed consideration for 3rd tri growth. Denies bleeding, leaking or contractions. + quickening. Counseled on MSAFP, patient would like to confirm insurance coverage and will notify office if she is interested. Reviewed with her 15-22 week window for collection. Anatomy with MFM. Call with questions/concerns. RTC in 4 weeks Lily Ramirez PA-C documented in this encounter Nursing Notes * Deisi Jimenez LPN - 04/06/2023 4:32 PM EDT 18w4d Had covid last week. [place]. documented in this encounter Plan of Treatment Upcoming Encounters Date Type Specialty Care Team Description 04/11/2023 Office Visit Maternal Medicine Juan Miranda, DO [address] [place] [address] 04/11/2023 Imaging Radiology 05/04/2023 Office Visit Gynecology Obstetrics Vale Saleh CRNP [address] [place] [address] 06/01/2023 Office Visit Gynecology Obstetrics Lily Ramirez PA-C [address] [place] [address] Health Maintenance Due Date Last Done Comments [...] type documented in this encounter Care Teams Calibration Checker Relationship Specialty Start Date End Date Bess King MD [address] [place] [phone] PCP - General Family Medicine 07/01/22 documented as of this encounter
--- OUTSIDE RECORDS SUMMARY | 2023-08-18 08:29 | External Medical Summary | Summary of Care ---
Author Name Unknown Organization [facility] Address [address] [facility] [place] [address] Phone [phone] Care Team Providers Care Construction Safety Consultant Name Role Phone Bess King MD Primary Care Provid er Reason for Visit * Reason Comments Return Visit Encounter Details Date Type Department Care Team Description 03/09/2023 Office Visit Gynecology/Obstetric s Lamonte Manuel [address] [place] [address] Leonora Bal CRNP [address] [place] [address] High-risk in second trimester*; Medication exposure during first trimester of ; complicated by tobacco use in second trimester; Attention deficit hyperactivity disorder (ADHD), combined type Allergies Active Allergy Reactions Severity Noted Date Comments Pollen Medium 09/12/2020 documented as of this encounter (statuses as of 03/09/2023) Medications Medication Sig Dispensed Refills Start Date [...] as of this encounter (statuses as of 03/09/2023) Active Problems Problem Noted Date Medication exposure during first trimest er of 01/12/2023 Overview: Amphetamine-Dextroamphet (Adderall) in for ADHD. Follows with Psych, [facility] in [place], [place] Patient wishes to continue Adderall throughout her [...] to discuss medication with psych provider at [facility]. Consider reducing dose. MFM anatomy scan [...] as needed dose yesterday. Managed by (psych) [facility] in [place], [place] Patient reports that she usually ends up requiring the PRN dose in the afternoon at work; doesn't usually need this dose on day off. High-risk 01/12/2023 Compression fracture of T12 vertebra Spasm of thoracic back muscle 11/26/2016 Controlled substance agreement signed Estimated Date of Delivery Comme nts Yes 09/03/2023 Based on Ultraso und documented as of this encounter (statuses as of 03/09/2023) Resolved Problems Problem Noted Date Resolved Date Supervision of high risk in first trim katherine 01/17/2023 03/09/2023 Dysuria 09/26/2014 11/19/2016 Urinary frequency 09/26/2014 11/19/2016 Urgency of urination 09/26/2014 11/19/2016 documented as of this encounter (statuses as of 03/09/2023) Immunizations Name Administration Dates Next Due HPV Vaccine, 9-Valent 06/21/2019 07/22/2019 PPD 05/19/2020, 0,01/17/2014,12/03 Pneumococcal Polysaccharide PPV23 (Pneumovax) 06/21/2019 Seasonal Influenza, PF, 6 mo ns & Above, IM , (Flulaval) 05/08/2020,04/02/2019 Seasonal Influenza, Split, I IV3, With [...] Sign Reading Time Taken Comments Blood Pressure 118/78 03/09/2023 11:21 AM EDT Pulse - - Temperature - - Respiratory Rate - - Oxygen Saturation - - Inhaled Oxygen Concentration - - Weight 73.5 kg (162 lb) 03/09/2023 11:21 AM EDT Height - - Body Mass Index 28.7 02/09/2023 8:37 AM EDT documented in this encounter Progress Notes * AVANI Conrad - 03/09/2023 11:25 AM EDT 14w 4d Doing well. Scheduled for anatomy scan with [facility] next month. Not feeling movement yet. No severe cramping/bleeding. Low risk Qnatal. Return in 4 weeks. AVANI Sheldon * Sydney Kulkarni LPN - 03/09/2023 11:21 AM EDT 14w4d Denies vaginal bleeding/rom Absent movement Breast tenderness documented in this encounter Plan of Treatment Upcoming Encounters Date Type Specialty Care Team Description 04/06/2023 Office Visit Gynecology Obstetrics Lily Ramirez PA-C [address] [place] [address] 04/11/2023 [facility] Visit [facility] [address] [facility] [address] 04/11/2023 Imaging Radiology Health Maintenance Due Date Last Done Comments COVID-19 Vaccine (#1) 1994 GARDASIL-HPV IMMUNIZATION SERIES (2 - 3-dose series) 07/19/2019 06/21/2019 Pneumococcal Vaccine: Pediatrics (0 to 5 Years) and At-Risk Patients (6 to 64 Years) (2 - PCV) 06/21/2020 06/21/2019 Depression Screening, Annual for Pts 12 and Over 09/12/2021 09/12/2020 Influenza Vaccine (FLU shot) (#1) 2023 04/06/2022, 05/08/2020, 04/02/2019, Additional history exists DTaP,Tdap,and Td Vaccines (6 - Td or Tdap) 06/13/2024 06/13/2014, 05/16/1995, 1994, Additional history exists Pap Smear 2026 2023, 06/03, 03/25/2016, Additional history exists Hepatitis C Screening Completed 2023 , 2023, 2023, Additional history exists MENINGOCOCCAL (MENACTRA/MENVEO) Aged Out [...] type documented in this encounter Care Teams Construction Safety Consultant Relationship Specialty Start Date End Date Bess King MD [address] [place] [phone] PCP - General Family Medicine 07/01/22 documented as of this encounter
--- OUTSIDE RECORDS SUMMARY | 2023-08-18 08:29 | External Medical Summary | Summary of Care ---
Author Name Unknown Organization [facility] Address [address] [place] [address] Phone [phone] Care Team Providers Care African Studies Professor Name Role Phone Bess King MD Primary Care Provid er Encounter Details Date Type Department Care Team (Late st Contact Info) Description 05/19/2023 11:45 AM EST Office Visit Authorization Nurse Obstetrics Maternal Medicine, [address] [place] [address] Radha Soares, DO [address] [place], [place] [phone] Medication exposure during first trimester of *; [...] Follows with Psych, [facility] in [place], [place] Patient wishes to continue Adderall throughout [...] dose yesterday. Managed by (psych) [facility] in [place], [place] Patient reports that she usually ends [...] money to get more. Never true 2023 Hext Depression Scale Answer Date Recorded Hext Depression Scale Total 8 2023 The thought [...] Manuel [address] [place] [address] Lily Ramirez PA-C [address] [place] [address] 06/09/2023 1:45 PM EST Imaging Maternal Medicine Imaging, Shyla Manuel [address] [place] [phone] 06/16/2023 2:15 PM EST Office Visit Gynecology/Obstetrics Lamonte Manuel [address] [place] [address] [place], AVANI Rosas [address] [place] [address] 06/23/2023 1:00 PM EST Imaging Maternal Medicine Imaging, Shyla Manuel [address] [place] [phone] 07/21/2023 1:00 PM EST Imaging Maternal Medicine Imaging, Shyla Manuel [address] [place] [phone] 08/18/2023 1:00 PM EST Imaging Maternal Medicine Imaging, Shyla Manuel [address] [place] [phone] Scheduled Orders Name Type Priority Associated Diagnoses [...] incidental documented in this encounter Care Teams African Studies Professor Relationship Specialty Start Date End Date Bess King MD [address] [place] [address] PCP - General Family Medicine 07/01/22 documented as of this encounter
--- OUTSIDE RECORDS SUMMARY | 2023-08-18 08:29 | External Medical Summary | Summary of Care ---
Author Name Unknown Organization [facility] Address [address] [place] [address] Phone [phone] Care Team Providers Care Cook House Supervisor Name Role Phone Bess King MD Primary Care Provid er Reason for Visit * Reason Comments Ultrasound Encounter Details Date Type Department Care Team Description 04/11/2023 Office Visit Licensed Vocational Nurse Obstetrics Maternal Medicine, [place] [address] [place], [place] [phone] Juan Miranda, [address] [place] [address] Medication exposure during first trimester of *; Attention deficit hyperactivity disorder (ADHD), combined type; complicated by tobacco use in second trimester; 19 weeks gestation of Allergies Active Allergy Reactions Severity Noted Date Comments Pollen Medium 09/12/2020 documented as of this encounter (statuses as of 04/11/2023) Medications Medication Sig Dispensed Refills Start Date [...] as of this encounter (statuses as of 04/11/2023) Active Problems Problem Noted Date Medication exposure during first trimest er of 01/12/2023 Overview: Amphetamine-Dextroamphet (Adderall) in for ADHD. Follows with Psych, [facility] in [place], [place] Patient wishes to continue Adderall throughout [...] secondary to Adderall use. Tobacco use complicating 01/12 Overview: Currently smoking 1/2 ppd Down from 1 ppd prior to Recommended cessation in .. Last Assessment & Plan: She continues to smoke. She reports variable amounts depending on the day. Cessation encouraged. We discussed some cessation aids. Attention deficit hyperactivity disorder (ADHD), combined type 01/12/2023 Overview: Managed with Adderall ER 25 mg daily Takes Adderall 30mg as needed. Patient states she took the as needed dose yesterday. Managed by (psych) [facility] in [place], [place] Patient reports that she usually ends up requiring the PRN dose in the afternoon at work; doesn't usually need this dose on day off. High-risk 01/12/2023 Compression fracture of T12 vertebra Spasm of thoracic back muscle 11/26/2016 Controlled substance agreement signed Estimated Date of Delivery Comme nts Yes 09/03/2023 Based on Ultraso und documented as of this encounter (statuses as of 04/11/2023) Resolved Problems Problem Noted Date Resolved Date Supervision of high risk in first trim katherine 01/17/2023 03/09/2023 Dysuria 09/26/2014 11/19/2016 Urinary frequency 09/26/2014 11/19/2016 Urgency of urination 09/26/2014 11/19/2016 documented as of this encounter (statuses as of 04/11/2023) Immunizations Name Administration Dates Next Due HPV [...] as of this encounter Progress Notes * Juan Miranda, - 04/11/2023 2:18 PM EDT MATERNAL MEDICINE VISIT Jessica Hussein is at 19w2d who presents to [facility] for an ultrasound and follow-up of her high risk . PHYSICAL EXAM: General: pleasant, alert and oriented, no acute distress She is being seen today by Maternal- Medicine for the following reasons: Problem List Items Addressed This Visit Medication exposure during first trimester of - Primary She presents for a anatomy survey. She has a history of ADHD treated with Adderall as well astobacco use. Labs reviewed: -- cffDNA low risk for aneuploidy We reviewed the results of today's ultrasound. The estimated weight is appropriate for gestational age. The visualized anatomy is unremarkable in appearance. The distal spine is suboptimally imaged secondary to position. The amniotic fluid amount appears normal. We discussed that ultrasound is not able to identify all anomalies, but it is reassuring thatno anomalies were seen today. We reviewed the plan for serial follow-up of growth secondary to Adderall use. Tobacco use complicating She continues to smoke. She reports variable amounts depending on the day. Cessation encouraged. Wediscussed some cessation aids. Attention deficit hyperactivity disorder (ADHD), combined type Other Visit Diagnoses 19 weeks gestation of We reviewed today's ultrasound findings. (For full report, please refer to ultrasound report provided separately). Ms. Hussein's questions were answered to her satisfaction. RECOMMENDATIONS: Recommend follow up ultrasound with [facility] in 4 weeks for growth and completion of anatomy secondary to Adderal use. Thank you for allowing us to participate in the care of this patient. Please call with any questions. Juan Miranda DO 04/11/2023 3:26 PM documented in this encounter Miscellaneous Notes * Assessment & Plan Note - Juan MirandaDO - 04/11/2023 3:25 PM EDT Associated Problem(s): Tobacco use complicating She continues to smoke. She reports variable amounts depending on the day. Cessation encouraged. Wediscussed some cessation aids. * Assessment & Plan Note - Juan MirandaDO - 04/11/2023 3:25 PM EDT Associated Problem(s): Medication exposure during first trimester of She presents for a anatomy survey. She has a history of ADHD treated with Adderall as well astobacco use. Labs reviewed: -- cffDNA low risk for aneuploidy We reviewed the results of today's ultrasound. The estimated weight is appropriate for gestational age. The visualized anatomy is unremarkable in appearance. The distal spine is suboptimally imaged secondary to position. The amniotic fluid amount appears normal. We discussed that ultrasound is not able to identify all anomalies, but it is reassuring thatno anomalies were seen today. We reviewed the plan for serial follow-up of growth secondary to Adderall use. documented in this encounter Plan of Treatment Upcoming Encounters Date Type Specialty Care Team Description 05/04/2023 Office Visit Gynecology Obstetrics Vale Saleh CRNP [address] [place] [address] 05/19/2023 Imaging Radiology 06/01/2023 Office Visit Gynecology Obstetrics Lily Ramirez PA-C [address] [place] [address] 06/09/2023 Imaging Radiology Health Maintenance Due Date Last [...] of - Primary Supervision of other high-risk Attention deficit hyperactivity disorder (ADHD), combined type complicated by tobacco use in second trimester 19 weeks gestation of state, incidental documented in this encounter Care Teams Cook House Supervisor Relationship Specialty Start Date End Date Bess King MD [address] [place], [place] [phone] PCP - General Family Medicine 07/01/22 documented as of this encounter
--- NOTE | 2023-08-18 09:28 | Obstetrical Progress Note ---
Date of Service August 18, 2023 Assessment & Plan Admission and Anticipated Discharge Date Admission Date: August 17, 2023 Subjective Patient is seen and examined. Reviewed her records and confirmed with her. Admitted last night for IOL for GHTN, normal labs, no proteinuria. Received 3 doses of PO Cytotec, prefers PO route rather than Vaginal Feels irregular cramping not painful. BP's stable VE; 1/ thick/ -3, posterior FHR categ I Continue to monitor and cervical ripening. Lab Results 08/17/23 08/17/23 Range/Units 18:05 18:18 WBC 10.66 (4.8-10.8) K/ul RBC 4.20 (4.20-5.40) M/uL Hgb 12.8 (12.0-16.0) g/dl Hct 38.6 (37.0-47.0) % MCV 91.9 (80.0-100.0) fL MCH 30.5 (25.0-34.0) pg MCHC 33.2 (32.0-36.0) g/dL RDW Std Deviation 39.7 (36.4-46.3) fL RDW Coeff of Anibal 11.9 (11.5-14.5) % Plt Count 256 (130-400) K/uL MPV 11.3 (9.4-12.4) fL Immature Gran % (Auto) 0.8 % Neut % (Auto) 75.8 % Lymph % (Auto) 14.6 % Teton % (Auto) 6.8 % Eos % (Auto) 1.4 % Baso % (Auto) 0.6 % Neut # (Auto) 8.08 H (1.40-6.50) K/uL Lymph # (Auto) 1.56 (1.20-3.40) K/uL Teton # (Auto) 0.73 H (0.11-0.59) K/uL Eos # (Auto) 0.15 (0.00-0.50) K/uL Baso # (Auto) 0.06 (0.00-0.20) K/uL Immature Gran # (Auto) 0.08 (0.01-0.20) K/uL Sodium 133 L (136-145) mmol/L Potassium 4.1 (3.5-5.1) mmol/L Chloride 102 (98-107) mmol/L Carbon Dioxide 22 (21-32) mmol/L Anion Gap 9 (3-11) BUN 14 (6-23) mg/dl Creatinine 0.61 (0.6-1.2) mg/dl Est Cr Clr Drug Dosing 148.6 ml/min Est GFR ( Amer) 142.0 ml/min Est GFR (Non-Af Amer) 122.5 ml/min BUN/Creatinine Ratio 23.0 H (10-20) Glucose 69 L (70-99(Fasting)) mg/dl Calcium 9.1 (8.6-10.3) mg/dl Total Bilirubin 0.3 (0.2-1.0) mg/dl AST 12 L (13-39) U/L ALT 10 (7-52) U/L Alkaline Phosphatase 99 (34-104) U/L Total Protein 6.8 (6.0-8.3) gm/dl Albumin 3.7 (3.4-5.0) gm/dl Globulin 3.1 (2.5-4.0) gm/dl Albumin/Globulin Ratio 1.2 (0.9-2) Ur Random Creatinine 65.7 mg/dl U Random Total Protein 10.6 (0-11.9) mg/dl Protein/Creatinin Ratio 0.2 (0-0.2) Blood Type A Positive Antibody Screen NEGATIVE Results & Data Vital Signs (Past 12 Hours) Vital Signs Temp Pulse Resp BP 08/18/23 09:07 90 131/74 08/18/23 07:05 36.7 C 20 08/18/23 07:02 93 H 138/85 08/18/23 04:26 88 146/78 H 08/18/23 04:11 104 H 136/80 08/18/23 03:57 83 138/81 08/18/23 03:43 96 H 133/80 08/18/23 03:26 18 08/18/23 03:26 36.6 C 18 08/17/23 22:48 18 08/17/23 22:48 36.6 C 18 08/17/23 22:48 116 H 08/17/23 22:48 140/97
[2023-08-18] MEDS: LACTATED RINGER'S 1,000 ML IV PRN (12:00)
[2023-08-18] MEDS: BUTORPHANOL TARTRATE 1 MG/ML VIAL IV PRN (12:05)
[2023-08-18] MEDS: TERBUTALINE SULFATE 1 MG/ML VIAL SQ ONE (13:00)
--- NOTE | 2023-08-18 13:12 | Obstetrical Progress Note ---
Date of Service August 18, 2023 Assessment & Plan Admission and Anticipated Discharge Date Admission Date: August 17, 2023 Subjective SROM'ed at 11:55 and the dose of Cytotec was held, not given Started to have ctxs q1-2 min and FHR had decelerations IVF bolus and nasal 02 was started placed on side and FHR recovered to 130's VE: 1-2 cm/ 60%/ -3 Given 1 dose of Terbutaline to help for tachysystole Continue to monitor closely Results & Data Vital Signs (Past 12 Hours) Vital Signs Temp Pulse Resp BP Pulse Ox 08/18/23 13:08 101 H 97 08/18/23 13:03 88 99 08/18/23 12:59 81 133/71 08/18/23 11:35 36.8 C 82 18 139/76 08/18/23 09:07 90 131/74 08/18/23 07:05 36.7 C 20 08/18/23 07:02 93 H 138/85 08/18/23 04:26 88 146/78 H 08/18/23 04:11 104 H 136/80 08/18/23 03:57 83 138/81 08/18/23 03:43 96 H 133/80 08/18/23 03:26 18 08/18/23 03:26 36.6 C 18
[2023-08-18] MEDS ORDERED: BUTORPHANOL TARTRATE 2 MG/ML VIAL IV PRN (14:57)
[2023-08-18] MEDS ORDERED: SODIUM CHLORIDE 0.9% PF INJ 10 ML VIAL EPI PRN (15:10)
[2023-08-18] MEDS ORDERED: LIDOCAINE 2% MPF LOCAL 5 ML VIAL EPI PRN (15:10)
[2023-08-18] MEDS ORDERED: diphenhydrAMINE 50 MG/ML VIAL IV PRN (15:10)
[2023-08-18] MEDS ORDERED: ePHEDrine sulfate 50 MG/ML AMP IV PRN (15:10)
[2023-08-18] MEDS ORDERED: fentaNYL citrate PF 100 MCG/2 ML VIAL EPI PRN (15:10)
[2023-08-18] MEDS ORDERED: NALOXONE HCL 1 MG in SODIUM CHLORIDE 0.9% 1,000 ML IV PRN (15:10)
[2023-08-18] MEDS ORDERED: NALOXONE HCL 0.4 MG/1 ML VIAL/CARP IV PRN (15:10)
[2023-08-18] MEDS ORDERED: NALBUPHINE HCL 5 MG in SYRINGE 0 ML IV PRN (15:10)
[2023-08-18] MEDS ORDERED: fentANYL 2 MCG/ML BUPIVacaine 0.125%-NSS 100ML BAG EPI PRN (15:10)
[2023-08-18] MEDS ORDERED: BUPIVACAINE 0.25% PF 30 ML VIAL EPI PRN (15:10)
[2023-08-18] MEDS ORDERED: ROPIVACAINE 0.5% PF 5 MG/ML 20 ML VIAL EPI PRN (15:10)
--- NOTE | 2023-08-18 15:10 | Anesthesiology Consultation ---
Date of Service August 18, 2023 Assessment & Plan (1) Encounter for pre-operative examination: Chart Review Chart Review: Patient NOT seen in Pre Admission Testing and Acceptable Risk for Labor Epidural Consults Requested none History Height/Weight Height: 5 ft 3 in Weight: 94.347 kg Allergies Allergy/AdvReac Type Severity Reaction Status Date / Time No Known Allergies Allergy Verified 08/17/23 18:27 Medications Home Medications Medication Instructions Recorded Confirmed Last Taken dextroamphetamine-amphetamine ER 30 mg PO QAM 10/20/20 08/17/23 Unknown 30 mg 24hr capsule,extend release albuterol sulfate 90 mcg/actuation 2 puffs inhalation QID PRN 10/21/20 08/17/23 Unknown aerosol inhaler (Ventolin HFA) shortness of breath or wheezing #8.5 grams vits no.124-ferrous fum 1 tab PO DAILY 08/17/23 08/17/23 Unknown 27 mg iron-folic acid 800 mcg tablet ( Vitamin) Active Medications Generic Name Dose Route Start Last Admin Trade Name Freq PRN Reason Stop Dose Admin Lactated Ringer's 1,000 mls @ 125 mls/hr 08/17/23 20:30 08/18/23 15:08 Lr IV 08/19/23 20:29 999 mls/hr .Q8H PRN Infusion L&D Protocol Protocol Misoprostol 50 mcg 08/18/23 02:45 08/18/23 14:08 Misoprostol 50 Mcg Tab PO 09/17/23 02:44 Not Given Q4HWA IGNACIO Past Medical History Medical History No acute medical problems Anxiety ADHD Past Surgical History Surgical History Hx of tonsillectomy History of appendectomy No significant past surgical history Social History Smoking Status: Current every day smoker Smoking cigarettes per day: 5 Hx Alcohol Use: No Hx Substance Use: No substance use type: does not use Physical Exam Vital Signs Last Vital Signs Temp 98.2 F 08/18/23 11:35 Pulse 106 H 08/18/23 13:48 Resp 18 08/18/23 11:35 BP 133/71 08/18/23 12:59 Pulse Ox 99 08/18/23 13:48 Testing Laboratory Results 08/17/23 18:18 02/14/24 18:18 Blood Type A Positive 08/17/23 18:18 Antibody Screen NEGATIVE 08/17/23 18:18
--- NOTE | 2023-08-18 15:15 | Obstetrical Progress Note ---
Date of Service August 18, 2023 Assessment & Plan Admission and Anticipated Discharge Date Admission Date: August 17, 2023 Subjective FHR had been categ I since last decels Ctxs spaced out but more painful She is asking for pain meds Recommended epidural and then start Oxytocin Continue to monitor closely. Results & Data Vital Signs (Past 12 Hours) Vital Signs Temp Pulse Resp BP Pulse Ox 08/18/23 13:48 106 H 99 08/18/23 13:43 98 H 100 08/18/23 13:38 93 H 99 08/18/23 13:33 100 H 100 08/18/23 13:28 99 H 99 08/18/23 13:23 109 H 100 08/18/23 13:18 89 98 08/18/23 13:13 111 H 96 08/18/23 13:08 101 H 97 08/18/23 13:03 88 99 08/18/23 12:59 81 133/71 08/18/23 11:35 36.8 C 82 18 139/76 08/18/23 09:07 90 131/74 08/18/23 07:05 36.7 C 20 08/18/23 07:02 93 H 138/85 08/18/23 04:26 88 146/78 H 08/18/23 04:11 104 H 136/80 08/18/23 03:57 83 138/81 08/18/23 03:43 96 H 133/80 08/18/23 03:26 18 08/18/23 03:26 36.6 C 18
[2023-08-18] MEDS: fentANYL 2 MCG/ML BUPIVacaine 0.125%-NSS 100ML BAG ONE (15:28)
[2023-08-18] MEDS: fentaNYL citrate PF 100 MCG/2 ML VIAL ONE (15:30)
[2023-08-18] MEDS: BUPIVACAINE 0.25% PF 30 ML VIAL ONE (15:30)
[2023-08-18] MEDS: LIDOCAINE 2%/EPINEPHRINE 1:200,000 20 ML PF EPI STA (15:30)
[2023-08-18] MEDS: SODIUM CHLORIDE 0.9% PF INJ 10 ML VIAL EPI STA (15:31)
[2023-08-18] MEDS: OXYTOCIN 30 UNITS/NSS 30 UNITS/500 ML BAG IV PRN (15:44)
--- NOTE | 2023-08-18 17:37 | Obstetrical Progress Note ---
Date of Service August 18, 2023 Assessment & Plan Admission and Anticipated Discharge Date Admission Date: August 17, 2023 Subjective FHR had been categ I until about 1/2 hour ago when started t have late decels with quick spontaneous recovery. Moderate variability in between. VE; 1-2cm/ 80%/-2, coned shaped head IUPC is placed to monitor contractions better Oxytocin is stopped, floey catheter is inserted Patient needs a new IV site. Continue to monitor closely on her side Results & Data Vital Signs (Past 12 Hours) Vital Signs Temp Pulse Resp BP Pulse Ox 08/18/23 17:32 92 H 100 08/18/23 17:27 96 H 100 08/18/23 17:22 97 H 98 08/18/23 17:17 95 H 99 08/18/23 17:16 109 H 129/75 08/18/23 17:12 97 H 97 08/18/23 17:07 92 H 98 08/18/23 17:02 90 98 08/18/23 17:01 89 130/73 08/18/23 16:57 96 H 99 08/18/23 16:52 93 H 98 08/18/23 16:47 98 H 100 08/18/23 16:46 107 H 133/78 08/18/23 16:42 102 H 100 08/18/23 16:39 110 H 91 08/18/23 16:37 104 H 100 08/18/23 16:32 100 08/18/23 16:32 99 H 08/18/23 16:32 101 H 134/81 08/18/23 16:27 106 H 100 08/18/23 16:22 110 H 100 08/18/23 16:17 101 H 142/73 H 100 08/18/23 16:12 103 H 100 08/18/23 16:09 108 H 91 08/18/23 16:07 116 H 100 08/18/23 16:02 114 H 100 08/18/23 16:01 101 H 135/70 08/18/23 16:00 114 H 89 L 08/18/23 15:57 114 H 100 08/18/23 15:52 110 H 100 08/18/23 15:51 37.2 C 20 08/18/23 15:47 109 H 135/66 100 08/18/23 15:42 108 H 100 08/18/23 15:39 119 H 89 L 08/18/23 15:37 105 H 100 08/18/23 15:32 100 H 100 08/18/23 15:31 108 H 20 141/68 H 08/18/23 15:29 105 H 18 141/70 H 08/18/23 15:27 103 H 100 08/18/23 15:26 100 H 143/76 H 08/18/23 15:25 93 H 08/18/23 15:25 100 H 127/73 92 08/18/23 15:24 97 H 143/86 H 08/18/23 15:22 93 H 100 08/18/23 15:17 97 H 100 08/18/23 13:48 106 H 99 08/18/23 13:43 98 H 100 08/18/23 13:38 93 H 99 08/18/23 13:33 100 H 100 08/18/23 13:28 99 H 99 08/18/23 13:23 109 H 100 08/18/23 13:18 89 98 08/18/23 13:13 111 H 96 08/18/23 13:08 101 H 97 08/18/23 13:03 88 99 08/18/23 12:59 81 133/71 08/18/23 11:35 36.8 C 82 18 139/76 08/18/23 09:07 90 131/74 08/18/23 07:05 36.7 C 20 08/18/23 07:02 93 H 138/85
--- NOTE | 2023-08-18 18:58 | Obstetrical Progress Note ---
Date of Service August 18, 2023 Assessment & Plan Admission and Anticipated Discharge Date Admission Date: August 17, 2023 Subjective FHR recovered and categ I since last note Continue to monitor closely. Results & Data Vital Signs (Past 12 Hours) Vital Signs Temp Pulse Resp BP Pulse Ox 08/18/23 18:52 95 H 100 08/18/23 18:47 100 08/18/23 18:47 94 H 08/18/23 18:47 97 H 141/80 H 08/18/23 18:42 113 H 99 08/18/23 18:37 97 H 99 08/18/23 18:33 97 H 142/83 H 08/18/23 18:32 95 H 100 08/18/23 18:27 99 H 100 08/18/23 18:22 99 H 99 08/18/23 18:17 100 08/18/23 18:17 96 H 08/18/23 18:17 94 H 136/78 08/18/23 18:12 99 H 99 08/18/23 18:07 99 H 100 08/18/23 18:02 92 H 146/84 H 100 08/18/23 17:59 90 92 08/18/23 17:57 87 100 08/18/23 17:52 90 98 08/18/23 17:49 37 C 20 08/18/23 17:48 117 H 130/60 08/18/23 17:47 95 H 90 08/18/23 17:45 104 H 94 08/18/23 17:42 100 H 99 08/18/23 17:37 91 H 100 08/18/23 17:34 91 H 93 08/18/23 17:32 92 H 100 08/18/23 17:27 96 H 100 08/18/23 17:22 97 H 98 08/18/23 17:17 95 H 99 08/18/23 17:16 109 H 129/75 08/18/23 17:12 97 H 97 08/18/23 17:07 92 H 98 08/18/23 17:02 90 98 08/18/23 17:01 89 130/73 08/18/23 16:57 96 H 99 08/18/23 16:52 93 H 98 08/18/23 16:47 98 H 100 08/18/23 16:46 107 H 133/78 08/18/23 16:42 102 H 100 08/18/23 16:39 110 H 91 08/18/23 16:37 104 H 100 08/18/23 16:32 100 08/18/23 16:32 99 H 08/18/23 16:32 101 H 134/81 08/18/23 16:27 106 H 100 08/18/23 16:22 110 H 100 08/18/23 16:17 101 H 142/73 H 100 08/18/23 16:12 103 H 100 08/18/23 16:09 108 H 91 08/18/23 16:07 116 H 100 08/18/23 16:02 114 H 100 08/18/23 16:01 101 H 135/70 08/18/23 16:00 114 H 89 L 08/18/23 15:57 114 H 100 08/18/23 15:52 110 H 100 08/18/23 15:51 37.2 C 20 08/18/23 15:47 109 H 135/66 100 08/18/23 15:42 108 H 100 08/18/23 15:39 119 H 89 L 08/18/23 15:37 105 H 100 08/18/23 15:32 100 H 100 08/18/23 15:31 108 H 20 141/68 H 08/18/23 15:29 105 H 18 141/70 H 08/18/23 15:27 103 H 100 08/18/23 15:26 100 H 143/76 H 08/18/23 15:25 93 H 08/18/23 15:25 100 H 127/73 92 08/18/23 15:24 97 H 143/86 H 08/18/23 15:22 93 H 100 08/18/23 15:17 97 H 100 08/18/23 13:48 106 H 99 08/18/23 13:43 98 H 100 08/18/23 13:38 93 H 99 08/18/23 13:33 100 H 100 08/18/23 13:28 99 H 99 08/18/23 13:23 109 H 100 08/18/23 13:18 89 98 08/18/23 13:13 111 H 96 08/18/23 13:08 101 H 97 08/18/23 13:03 88 99 08/18/23 12:59 81 133/71 08/18/23 11:35 36.8 C 82 18 139/76 08/18/23 09:07 90 131/74 08/18/23 07:05 36.7 C 20 08/18/23 07:02 93 H 138/85
[2023-08-18 20:10] LABS: Basophils # (auto) 0.04 K/uL (0.00-0.20); Basophils % (auto) 0.3 %; Eosinophils # (auto) 0.05 K/uL (0.00-0.50); Eosinophils % (auto) 0.4 %; Hematocrit (blood only) 37.6 % (37.0-47.0); Hemoglobin 12.5 g/dl (12.0-16.0); Immature Granulocytes # (auto) 0.09 K/uL (0.01-0.20); Immature Granulocytes % (auto) 0.7 %; Lymphocytes # (auto) 1.25 K/uL (1.20-3.40); Lymphocytes % (auto) 9.3 %; Mean Corpuscular Hemoglobin 30.2 pg (25.0-34.0); Mean Corpuscular Hgb Conc 33.2 g/dL (32.0-36.0); Mean Corpuscular Volume 90.8 fL (80.0-100.0); Mean Platelet Volume 11.4 fL (9.4-12.4); Monocytes # (auto) 0.78 K/uL (0.11-0.59); Monocytes % (auto) 5.8 %; Neutrophils # (auto) 11.29 K/uL (1.40-6.50); Neutrophils % (auto) 83.5 %; Platelet Count 247 K/uL (130-400); RDW Coefficient of Variation 11.9 % (11.5-14.5); RDW Standard Deviation 39.4 fL (36.4-46.3); Red Blood Count 4.14 M/uL (4.20-5.40)
[2023-08-18 20:24] LABS: Albumin Globulin Ratio 1.1 (0.9-2); Albumin Level 3.2 gm/dl (3.4-5.0); BUN Creatinine Ratio 18.2 (10-20); Bilirubin,Total 0.4 mg/dl (0.2-1.0); Calcium 8.8 mg/dl (8.6-10.3); Est GFR (African American) 102.9 ml/min; Est GFR (Non-African American) 88.8 ml/min; Potassium 4.5 mmol/L (3.5-5.1); Total Protein 6.2 gm/dl (6.0-8.3)
[2023-08-18] MEDS ORDERED: OXYTOCIN 30 UNITS/NSS 30 UNITS/500 ML BAG IV PRN (20:51)
[2023-08-18] MEDS ORDERED: HYDROCORTISONE ACETATE 25 MG SUPP PR PRN (20:51)
[2023-08-18] MEDS ORDERED: bisacodyL 10 MG SUPP PR PRN (20:51)
[2023-08-18 20:52] LABS: Fibrinogen 585 mg/dl (184-400); INR 0.9 (0.9-1.1); Partial Thromboplastin Ratio 0.8; Partial Thromboplastin Time 23 Seconds (21-31); Prothrombin Time 9.4 Seconds (9.0-12.0)
--- NOTE | 2023-08-18 20:53 | Delivery Summary ---
Vaginal Delivery Summary Date of Service August 18, 2023 Vaginal Delivery Summary Patient was found to be fully dilated and desireD to push. She pushed for about 13 min and delivered the head and then shoulders with minimal traction at 20:29. The baby was handed off to the mother. The cord was clampedx2 and cut at 1 minute. The vagina and perineum were checked and found to be intact. We waited for placenta for about 30 minutes and it was in lower uterus/ cervix. With patient pushing it was delivered spontaneously as intact and complete. The uterus was explored and found to be empty. EBL was 200 ml. The fundus was firm. The baby was a viable male infant, Apgars 8/9, the weight is pending The mother and the baby tolerated the procedure well. No complications happened and I was present during whole procedure.
[2023-08-18] MEDS: MINERAL OIL 30 ML UDC ONE (21:09)
[2023-08-18] MEDS: DOCUSATE SODIUM 100 MG CAP PO SCH (21:09)
[2023-08-18 21:22] LABS: Creatinine Urine Random 105.2 mg/dl; Protein Creatinine Ratio Urine 0.2 (0-0.2); Total Protein Urine Random 17.6 mg/dl (0-11.9)
[2023-08-18] MEDS: DIPHTHER/TETAN/PERTUS Vaccine (Tdap, Adol/Adult) 0.5mL IM ONE (21:25)
[2023-08-18] MEDS: MEASLES, MUMPS & RUBELLA VIRUS VACCINE (MMR) VIAL SQ ONE (21:26)
[2023-08-18] MEDS: BUPIVACAINE 0.25% PF 30 ML VIAL EPI STA (21:28)
[2023-08-18] MEDS: ePHEDrine sulfate 50 MG/ML AMP ONE (21:28)
[2023-08-18] MEDS: LIDOCAINE 2%/EPINEPHRINE 1:200,000 20 ML PF ONE (21:28)
[2023-08-18] MEDS: fentaNYL citrate PF 100 MCG/2 ML VIAL EPI STA (21:28)
[2023-08-18] MEDS: SODIUM CHLORIDE 0.9% PF INJ 10 ML VIAL ONE (21:29)
[2023-08-18] MEDS: ceFAZolin 2000MG 2,000 MG/15 ML SYR IV STA (21:37)
[2023-08-18] MEDS: miSOPROStoL 200 MCG TAB PR ONE (21:37)
--- NOTE | 2023-08-18 22:41 | Anesthesia Procedure Note ---
Date of Service August 18, 2023 Anesthesia Post Epidural Note Vital Signs Vital Signs: Temp Pulse Resp BP Pulse Ox 98.2 F 105 H 18 152/79 H 100 08/18/23 19:30 08/18/23 22:31 08/18/23 19:30 08/18/23 22:31 08/18/23 20:57 Pain Intensity Abdomen: Pain Intensity: 0 Notes Mental Status: alert / awake / arousable and participated in evaluation Nausea / Vomiting: adequately controlled Pain: adequately controlled Airway Patency, RR, SpO2: stable & adequate BP & HR: stable & adequate Hydration State: stable & adequate Neuraxial Anesthesia: was administered and sensory block is resolving Anesthetic Complications: no major complications apparent and Pt Satisfied with anesthetic care Epidural: Removed without complications and With tip intact
[2023-08-18] MEDS: BENZOCAINE 20% SPRY 85 APPLN/85 GM CAN EXT PRN (22:44)
[2023-08-18] MEDS: IBUPROFEN 600 MG TAB PO PRN (22:44)
[2023-08-18] MEDS: miSOPROStoL 200 MCG TAB ONE (23:49)
[2023-08-19 06:40] LABS: Hematocrit (blood only) 32.3 % (37.0-47.0); Hemoglobin 10.7 g/dl (12.0-16.0); Mean Corpuscular Hemoglobin 30.1 pg (25.0-34.0); Mean Corpuscular Hgb Conc 33.1 g/dL (32.0-36.0); Mean Corpuscular Volume 90.7 fL (80.0-100.0); Mean Platelet Volume 11.6 fL (9.4-12.4); Platelet Count 200 K/uL (130-400); RDW Coefficient of Variation 11.9 % (11.5-14.5); Red Blood Count 3.56 M/uL (4.20-5.40); White Blood Count 13.21 K/ul (4.8-10.8)
[2023-08-19] MEDS ORDERED: ALBUTEROL HFA 8 GM INHALER INH PRN (07:39)
[2023-08-19] MEDS: PRENATAL VITAMIN 1 TAB PO SCH ×2 (08:00→08:03)
[2023-08-19] MEDS: ACETAMINOPHEN 325 MG TAB PO PRN (08:03)
[2023-08-19] MEDS: FERROUS SULFATE 325 MG TAB PO SCH (08:03)
[2023-08-19] MEDS: LABETALOL HCL 100 MG TAB PO SCH ×2 (08:47→20:12)
[2023-08-19] MEDS: DEXTROAMPHETAMINE/AMPHETAMINE ER 10 MG CAP PO SCH (10:15)
--- NOTE | 2023-08-19 14:18 | Obstetrical Progress Note ---
Date of Service August 19, 2023 Assessment & Plan Admission and Anticipated Discharge Date Admission Date: August 17, 2023 Subjective Patient is seen and examined. She feels well, no complaints. Ambulating without dizziness Voiding without difficulty Tolerating regular diet with out N&V Bleeding is minimal No fever/ chills/ CP/ SOB/ N&V/ Leg pain Breast feeding without problems Vital Signs Temp Pulse Resp BP Pulse Ox O2 Del Method 08/19/23 12:45 37.2 C 90 20 144/88 H 08/19/23 02:54 37 C 99 H 20 136/81 97 Room Air Lab Results 08/17/23 08/17/23 08/18/23 Range/Units 18:05 18:18 19:56 WBC 10.66 13.50 H (4.8-10.8) K/ul RBC 4.20 4.14 L (4.20-5.40) M/uL Hgb 12.8 12.5 (12.0-16.0) g/dl Hct 38.6 37.6 (37.0-47.0) % MCV 91.9 90.8 (80.0-100.0) fL MCH 30.5 30.2 (25.0-34.0) pg MCHC 33.2 33.2 (32.0-36.0) g/dL RDW Std Deviation 39.7 39.4 (36.4-46.3) fL RDW Coeff of Anibal 11.9 11.9 (11.5-14.5) % Plt Count 256 247 (130-400) K/uL MPV 11.3 11.4 (9.4-12.4) fL Immature Gran % (Auto) 0.8 0.7 % Neut % (Auto) 75.8 83.5 % Lymph % (Auto) 14.6 9.3 % [place] % (Auto) 6.8 5.8 % Eos % (Auto) 1.4 0.4 % Baso % (Auto) 0.6 0.3 % Neut # (Auto) 8.08 H 11.29 H (1.40-6.50) K/uL Lymph # (Auto) 1.56 1.25 (1.20-3.40) K/uL [place] # (Auto) 0.73 H 0.78 H (0.11-0.59) K/uL Eos # (Auto) 0.15 0.05 (0.00-0.50) K/uL Baso # (Auto) 0.06 0.04 (0.00-0.20) K/uL Immature Gran # (Auto) 0.08 0.09 (0.01-0.20) K/uL PT 9.4 (9.0-12.0) Seconds INR 0.9 (0.9-1.1) APTT 23 (21-31) Seconds PTT Ratio 0.8 Fibrinogen 585 H (184-400) mg/dl Sodium 133 L 133 L (136-145) mmol/L Potassium 4.1 4.5 (3.5-5.1) mmol/L Chloride 102 103 (98-107) mmol/L Carbon Dioxide 22 23 (21-32) mmol/L Anion Gap 9 7 (3-11) BUN 14 16 (6-23) mg/dl Creatinine 0.61 0.88 (0.6-1.2) mg/dl Est Cr Clr Drug Dosing 148.6 103.0 ml/min Est GFR ( Amer) 142.0 102.9 ml/min Est GFR (Non-Af Amer) 122.5 88.8 ml/min BUN/Creatinine Ratio 23.0 H 18.2 (10-20) Glucose 69 L 72 (70-99(Fasting)) mg/dl Calcium 9.1 8.8 (8.6-10.3) mg/dl Total Bilirubin 0.3 0.4 (0.2-1.0) mg/dl AST 12 L 12 L (13-39) U/L ALT 10 9 (7-52) U/L Alkaline Phosphatase 99 105 H (34-104) U/L Total Protein 6.8 6.2 (6.0-8.3) gm/dl Albumin 3.7 3.2 L (3.4-5.0) gm/dl Globulin 3.1 3.0 (2.5-4.0) gm/dl Albumin/Globulin Ratio 1.2 1.1 (0.9-2) Ur Random Creatinine 65.7 mg/dl U Random Total Protein 10.6 (0-11.9) mg/dl Protein/Creatinin Ratio 0.2 (0-0.2) Blood Type A Positive Antibody Screen NEGATIVE 08/18/23 08/19/23 Range/Units 20:56 06:12 WBC 13.21 H (4.8-10.8) K/ul RBC 3.56 L (4.20-5.40) M/uL Hgb 10.7 L (12.0-16.0) g/dl Hct 32.3 L (37.0-47.0) % MCV 90.7 (80.0-100.0) fL MCH 30.1 (25.0-34.0) pg MCHC 33.1 (32.0-36.0) g/dL RDW Std Deviation 39.0 (36.4-46.3) fL RDW Coeff of Anibal 11.9 (11.5-14.5) % Plt Count 200 (130-400) K/uL MPV 11.6 (9.4-12.4) fL Immature Gran % (Auto) % Neut % (Auto) % Lymph % (Auto) % [place] % (Auto) % Eos % (Auto) % Baso % (Auto) % Neut # (Auto) (1.40-6.50) K/uL Lymph # (Auto) (1.20-3.40) K/uL [place] # (Auto) (0.11-0.59) K/uL Eos # (Auto) (0.00-0.50) K/uL Baso # (Auto) (0.00-0.20) K/uL Immature Gran # (Auto) (0.01-0.20) K/uL PT (9.0-12.0) Seconds INR (0.9-1.1) APTT (21-31) Seconds PTT Ratio Fibrinogen (184-400) mg/dl Sodium (136-145) mmol/L Potassium (3.5-5.1) mmol/L Chloride (98-107) mmol/L Carbon Dioxide (21-32) mmol/L Anion Gap (3-11) BUN (6-23) mg/dl Creatinine (0.6-1.2) mg/dl Est Cr Clr Drug Dosing ml/min Est GFR ( Amer) ml/min Est GFR (Non-Af Amer) ml/min BUN/Creatinine Ratio (10-20) Glucose (70-99(Fasting)) mg/dl Calcium (8.6-10.3) mg/dl Total Bilirubin (0.2-1.0) mg/dl AST (13-39) U/L ALT (7-52) U/L Alkaline Phosphatase (34-104) U/L Total Protein (6.0-8.3) gm/dl Albumin (3.4-5.0) gm/dl Globulin (2.5-4.0) gm/dl Albumin/Globulin Ratio (0.9-2) Ur Random Creatinine 105.2 mg/dl U Random Total Protein 17.6 H (0-11.9) mg/dl Protein/Creatinin Ratio 0.2 (0-0.2) Blood Type Antibody Screen PE: General: Alert, orientedx3, NAD Abd: soft, NT, fundus firm, below Umbilicus Perineum intact, Lochia rubra minimal Ext; NT, 2+/2+ pitting edema AP: 28 yo s/p , ppd# 1, GHTN no protein VSS Afebrile doing well Started on Labetalol this morning Continue routine care All questions were answered D/C home tomorrow Results & Data Vital Signs (Past 12 Hours) Vital Signs Temp Pulse Resp BP Pulse Ox O2 Del Method 08/19/23 12:45 37.2 C 90 20 144/88 H 08/19/23 02:54 37 C 99 H 20 136/81 97 Room Air
[2023-08-19] MEDS: bisacodyL 5 MG TABEC PO SCH (20:12)
[2023-08-20 09:11] LABS: Hematocrit (blood only) 33.2 % (37.0-47.0)
--- NOTE | 2023-08-20 10:45 | Obstetrical Progress Note ---
Date of Service August 20, 2023 Assessment & Plan (1) Normal course: PPD #2 pt doing well On labetalol 100mg BID and doing well d/c home with instrcutions Subjective Ambulation: ambulating normally Voiding: no voiding problems Passing Gas:: Yes Diet Tolerance:: regular diet Lochia:: Small Feeding Type:: breast feeding Review of Systems All systems reviewed & are unremarkable except as noted in HPI & below Physical Exam Constitutional WD/WN, vitals as above well developed and well nourished Eyes PERRL, conjunctivae normal, anicteric sclerae Neck trachea midline, no thyromegaly Respiratory normal respiratory effort, lungs clear to auscultation Auscultation: no crackles, no rales and no wheezes Cardiovascular RRR, no murmur, no edema Gastrointestinal (Abdomen) normal bowel sounds, soft, nontender, no hepatosplenomegaly Uterus is below umbilicus Musculoskeletal no cyanosis or clubbing, extremities motor strength 5/5 Skin no rashes, warm and dry Neurologic patellar DTR's 2+ bilat, sensation intact Psychiatric A+Ox3, euthymic affect Genitourinary normal external appearance Results & Data Vital Signs (Past 12 Hours) Vital Signs Temp Pulse Resp BP Pulse Ox O2 Del Method 08/20/23 08:00 36.6 C 86 20 120/84 Room Air 08/20/23 00:15 36.5 C 92 H 16 119/75 97 Room Air
== END 2023-08-20 14:50 | disposition home or self-care (01) | DRG 807 ==
LOC: OPB 17:07 → 4S1 17:10 → 4E2 08-18 23:40

== ENCOUNTER 2025-02-02 16:13 | Inpatient (IN) ==
[2025-02-02 17:21] LABS: Appearance Urine Cloudy (Clear); Bacteria Urine Automated 4+ (None Seen); Epithelial Cell Urine Auto >20 /hpf (0-2); Glucose Urine UA Negative (Negative); RBC Urine Automated 0-2 /hpf (0-2); WBC Urine Automated 21-50 /hpf (0-5)
[2025-02-02 17:26] LABS: Protein Creatinine Ratio Urine 0.2 (0-0.2); Total Protein Urine Random 48.8 mg/dl (0-11.9)
[2025-02-02 17:55] LABS: Hematocrit (blood only) 36.4 % (37.0-47.0); Hemoglobin 12.8 g/dl (12.0-16.0); Immature Granulocytes # (auto) 0.04 K/uL (0.01-0.20); Immature Granulocytes % (auto) 0.4 %; Mean Corpuscular Hemoglobin 33.0 pg (25.0-34.0); Mean Corpuscular Volume 93.8 fL (80.0-100.0); Platelet Count 175 K/uL (130-400); RDW Standard Deviation 45.3 fL (36.4-46.3); Red Blood Count 3.88 M/uL (4.20-5.40); White Blood Count 8.92 K/ul (4.8-10.8)
[2025-02-02 18:11] LABS: Alanine Aminotransferase 10.0 U/L (7-52); Albumin Globulin Ratio 1.1 (0.9-2); Alkaline Phosphatase 126.0 U/L (34-104); Anion Gap 6.0 (3-11); Bilirubin,Total 0.2 mg/dl (0.2-1.0); Blood Urea Nitrogen 12.0 mg/dl (6-23); Calcium 8.7 mg/dl (8.6-10.3); Carbon Dioxide 22.0 mmol/L (21-32); Chloride 106.0 mmol/L (98-107); Creatinine Clr Calc Pharmacy 135.8 ml/min; Globulin 2.8 gm/dl (2.5-4.0); Glucose 85.0 mg/dl (70-99(Fasting)); Potassium 4.2 mmol/L (3.5-5.1); Sodium 134.0 mmol/L (136-145); Total Protein 5.9 gm/dl (6.0-8.3); Uric Acid 5.4 mg/dl (2.6-7.2)
[2025-02-02] MEDS ORDERED: OXYTOCIN 30 UNITS/NSS 30 UNITS/500 ML BAG IV PRN (19:00)
[2025-02-02] MEDS ORDERED: CALCIUM CARBONATE 500 MG CHEWABLE TAB PO PRN (19:00)
[2025-02-02] MEDS ORDERED: LIDOCAINE 1% LOCAL 20 ML VIAL INFIL PRN (19:00)
[2025-02-02] MEDS: LACTATED RINGER'S 1,000 ML IV PRN (19:25)
[2025-02-02] MEDS: PENICILLIN GK 6 MU in DEXTROSE 5% 250 ML IV STA (19:26)
[2025-02-02 20:03] LABS: Hematocrit (blood only) 36.2 % (37.0-47.0); Hemoglobin 12.7 g/dl (12.0-16.0); Mean Corpuscular Hemoglobin 33.2 pg (25.0-34.0); Mean Corpuscular Volume 94.5 fL (80.0-100.0); Platelet Count 172 K/uL (130-400); RDW Standard Deviation 46.1 fL (36.4-46.3); Red Blood Count 3.83 M/uL (4.20-5.40); White Blood Count 8.23 K/ul (4.8-10.8)
--- NOTE | 2025-02-02 20:39 | History & Physical Report ---
Date of Service February 02, 2025 Assessment & Plan (1) Gestational hypertension without significant proteinuria during in third trimester, antepartum: Plan: Will admit to L&D for induction of labor History of Present Illness Chief Complaint: headache in Primary Care Provider: Bess King MD 30 F P1001 at 37.3 weeks with gestational hypertension that now has a headache. She was here yesterday and sent home with PO Labetalol and presents again with elevated BP now. GBS is positive. Allergies Allergy/AdvReac Type Severity Reaction Status Date / Time No Known Allergies Allergy Verified 02/02/25 16:45 Home Medications Medication Instructions Recorded Confirmed Type dextroamphetamine-amphetamine ER 30 mg PO DIRECTED 10/20/20 02/02/25 History 30 mg 24hr capsule,extend release vits no.124-ferrous fum 1 tab PO DAILY 08/17/23 12/01/24 History 27 mg iron-folic acid 800 mcg tablet ( Vitamin) acetaminophen 325 mg tablet 1,000 mg PO DIRECTED PRN Pain 12/01/24 02/02/25 History (Tylenol) cyanocobalamin (vitamin B-12) 1,000 mcg PO DAILY 12/01/24 02/02/25 History 1,000 mcg tablet (Vitamin B-12) dextroamphetamine-amphetamine ER 25 mg PO QAM 12/01/24 02/02/25 History 25 mg 24hr capsule,extend release docusate sodium 100 mg capsule 100 mg PO DAILY 12/01/24 02/02/25 History iron,carbonyl 65 mg-vitamin C 125 1 tab PO DAILY 12/01/24 02/02/25 History mg tablet,delayed release (Vitron-C) magnesium 250 mg tablet 250 mg PO DAILY 12/01/24 02/02/25 History ondansetron 4 mg disintegrating 4 mg translingual Q8H PRN 12/01/24 02/02/25 History tablet NAUSEA/VOMITING phenylephrine HCl 10 mg tablet 10 mg PO Q6H PRN SINUS 12/01/24 12/01/24 History (Sudafed PE) CONGESTION/PAIN labetalol 200 mg tablet 200 mg PO BID 02/02/25 02/02/25 History omeprazole 20 mg tablet,delayed 20 mg PO DAILY 02/02/25 02/02/25 History release Patient History Medical History No acute medical problems Anxiety ADHD Surgical History Hx of tonsillectomy History of appendectomy Social History Smoking Status: Current every day smoker Tobacco Type: Cigarettes Cigarettes Per Day: 5; Second Hand Exposure: Yes; Do You Dip or Chew Tobacco: No; Tobacco Cessation Education Requested by Patient: No Hx Alcohol Use: No Hx Substance Use: No Preferred Language: Mongolian [place] Required: No Beliefs That Will Affect Care: None marital status: Life Partner Current Living Situation: Significant Other current occupational status: unemployed Feels Safe at Home: Yes Safety Concerns: Feels Safe At This Time Assistive Devices: None OB History x1 [employer] History neg Review of Systems All systems reviewed & are unremarkable except as noted in HPI & below Physical Exam Constitutional: WD/WN, vitals as above Eyes: PERRL, conjunctivae normal, anicteric sclerae Respiratory: normal respiratory effort Cardiovascular: Rate/Rhythm: regular rate and regular rhythm Gastrointestinal (Abdomen): Inspection/Auscultation: abdomen normal to inspection no RUQ pain abdomen soft Musculoskeletal: 3+ pitting edema Skin: no rashes, warm and dry Neurologic: patellar DTR's 2+ bilat, sensation intact Psychiatric: A+Ox3, euthymic affect Genitourinary: no vaginal lesions, no adnexal mass Manual OB Exam: + cerv ical dilation 3 cm, + cervical effacement 60% and + station -2 OB Exam Monitor Tracing: + external FHT monitor used, + external uterine monitor used, + category I and + normal FHT variability Results & Data Vital Signs (Past 12 Hours) Vital Signs Temp Pulse Resp BP Pulse Ox O2 Del Method 02/02/25 19:31 Room Air 02/02/25 19:31 107 H 02/02/25 19:31 144/85 H 02/02/25 18:52 98 02/02/25 18:52 106 H 02/02/25 18:49 104 H 02/02/25 18:49 158/90 H 02/02/25 18:47 99 02/02/25 18:47 107 H 02/02/25 18:42 99 02/02/25 18:42 111 H 02/02/25 18:37 99 02/02/25 18:37 110 H 02/02/25 18:34 102 H 02/02/25 18:34 155/90 H 02/02/25 18:32 97 02/02/25 18:32 106 H 02/02/25 18:27 98 02/02/25 18:27 106 H 02/02/25 18:22 99 02/02/25 18:22 107 H 02/02/25 18:19 105 H 02/02/25 18:19 161/108 H 02/02/25 18:17 100 02/02/25 18:17 112 H 02/02/25 18:08 98 02/02/25 18:08 103 H 02/02/25 18:04 105 H 02/02/25 18:04 135/90 02/02/25 18:03 99 02/02/25 18:03 105 H 02/02/25 17:58 99 02/02/25 17:58 103 H 02/02/25 17:53 100 02/02/25 17:53 106 H 02/02/25 17:48 99 02/02/25 17:48 105 H 02/02/25 17:43 99 02/02/25 17:43 105 H 02/02/25 17:36 99 02/02/25 17:36 108 H 02/02/25 17:31 98 02/02/25 17:31 105 H 02/02/25 17:27 111 H 02/02/25 17:27 159/92 H 02/02/25 17:26 99 02/02/25 17:26 108 H 02/02/25 17:21 99 02/02/25 17:21 106 H 02/02/25 17:17 108 H 02/02/25 17:17 160/90 H 02/02/25 17:16 98 02/02/25 17:16 107 H 02/02/25 17:11 99 02/02/25 17:11 107 H 02/02/25 17:10 37.2 C 02/02/25 17:07 105 H 02/02/25 17:07 159/95 H 02/02/25 17:06 99 02/02/25 17:06 106 H 02/02/25 17:02 Room Air 02/02/25 17:01 99 02/02/25 17:01 109 H 02/02/25 16:58 109 H 147/91 H 02/02/25 16:56 109 H 99 02/02/25 16:51 114 H 99 02/02/25 16:47 37.2 C 112 H 22 150/96 H 02/02/25 16:46 110 H 100 02/02/25 16:41 111 H 99 02/02/25 16:34 111 H 141/90 H Laboratory Results 02/02/25 02/02/25 02/02/25 16:50 17:26 19:38 WBC 8.92 8.23 RBC 3.88 L 3.83 L Hgb 12.8 12.7 Hct 36.4 L 36.2 L MCV 93.8 94.5 MCH 33.0 33.2 MCHC 35.2 35.1 RDW Std Deviation 45.3 46.1 RDW Coeff of Anibal 13.3 13.2 Plt Count 175 172 MPV 12.2 12.4 Immature Gran % (Auto) 0.4 Neut % (Auto) 74.3 Lymph % (Auto) 15.4 [place] % (Auto) 7.8 Eos % (Auto) 1.7 Baso % (Auto) 0.4 Neut # (Auto) 6.62 H Lymph # (Auto) 1.37 [place] # (Auto) 0.70 H Eos # (Auto) 0.15 Baso # (Auto) 0.04 Immature Gran # (Auto) 0.04 Sodium 134 L Potassium 4.2 Chloride 106 Carbon Dioxide 22 Anion Gap 6 BUN 12 Creatinine 0.69 Est Cr Clr Drug Dosing 135.8 eGFR 118.92 BUN/Creatinine Ratio 17.4 Glucose 85 Uric Acid 5.4 Calcium 8.7 Total Bilirubin 0.2 Direct Bilirubin 0.0 AST 14 ALT 10 Alkaline Phosphatase 126 H Lactate Dehydrogenase 184 Total Protein 5.9 L Albumin 3.1 L Globulin 2.8 Albumin/Globulin Ratio 1.1 Urine Color Yellow Urine Appearance Cloudy A Urine pH 6.5 Ur Specific [place] 1.031 H Urine Protein 1+ H Urine Glucose (UA) Negative Urine Ketones Trace H Urine Blood Negative Urine Nitrite Negative Urine Bilirubin Negative Urine Urobilinogen Negative Ur Leukocyte Esterase 1+ H Urine WBC (Auto) 21-50 H Urine RBC (Auto) 0-2 U Hyaline Cast (Auto) 3-5 H U Epithel Cells (Auto) >20 H Urine Bacteria (Auto) 4+ H Ur Random Creatinine 200.3 U Random Total Protein 48.8 H Protein/Creatinin Ratio 0.2 Urine Comment Code Status & VTE Plan VTE Prophylaxis Plan VTE Prophylaxis will be ordered: No Monitoring External Monitor Cat 1
[2025-02-02] MEDS: OXYTOCIN 30 UNITS/NSS 30 UNITS/500 ML BAG IV PRN (20:50)
[2025-02-02] MEDS: PENICILLIN GK 3 MU in DEXTROSE 5% 100 ML IV PRN (23:29)
[2025-02-02] MEDS ORDERED: ONDANSETRON INJ 2 MG/ML 2 ML VIAL IV PRN (23:40)
[2025-02-02] MEDS ORDERED: NALBUPHINE HCL INJ 10 MG/ML AMP IV PRN (23:40)
[2025-02-02] MEDS ORDERED: fentANYL 2 MCG/ML BUPIVacaine 0.125%-NSS 100ML BAG EPI PRN (23:40)
[2025-02-02] MEDS ORDERED: ROPIVACAINE 0.5% PF 5 MG/ML 20 ML VIAL EPI PRN (23:40)
[2025-02-02] MEDS ORDERED: NALOXONE HCL 0.4 MG/1 ML VIAL/CARP IV PRN (23:40)
[2025-02-02] MEDS ORDERED: NALOXONE HCL 1 MG in SODIUM CHLORIDE 0.9% 1,000 ML IV PRN (23:40)
[2025-02-02] MEDS ORDERED: LIDOCAINE 2% MPF LOCAL 5 ML VIAL EPI PRN (23:40)
[2025-02-02] MEDS ORDERED: BUPIVACAINE 0.25% PF 30 ML VIAL EPI PRN (23:40)
[2025-02-02] MEDS ORDERED: diphenhydrAMINE 50 MG/ML VIAL IV PRN (23:40)
[2025-02-02] MEDS ORDERED: SODIUM CHLORIDE 0.9% PF INJ 10 ML VIAL EPI PRN (23:40)
--- NOTE | 2025-02-02 23:42 | Anesthesiology Consultation ---
Date of Service February 02, 2025 Assessment & Plan (1) Encounter for pre-operative examination: Chart Review Chart Review: Patient NOT seen in Pre Admission Testing and Acceptable Risk for Labor Epidural Consults Requested none History Height/Weight Height: 5 ft 3 in Weight: 103.419 kg Allergies Allergy/AdvReac Type Severity Reaction Status Date / Time No Known Allergies Allergy Verified 02/02/25 16:45 Medications Home Medications Medication Instructions Recorded Confirmed Last Taken dextroamphetamine-amphetamine ER 30 mg PO DIRECTED 10/20/20 02/02/25 02/02/25 05:30 30 mg 24hr capsule,extend release vits no.124-ferrous fum 1 tab PO DAILY 08/17/23 12/01/24 12/01/24 27 mg iron-folic acid 800 mcg tablet ( Vitamin) acetaminophen 325 mg tablet 1,000 mg PO DIRECTED PRN Pain 12/01/24 02/02/25 02/02/25 13:00 (Tylenol) cyanocobalamin (vitamin B-12) 1,000 mcg PO DAILY 12/01/24 02/02/25 02/02/25 05:30 1,000 mcg tablet (Vitamin B-12) dextroamphetamine-amphetamine ER 25 mg PO QAM 12/01/24 02/02/25 02/02/25 25 mg 24hr capsule,extend release docusate sodium 100 mg capsule 100 mg PO DAILY 12/01/24 02/02/25 02/02/25 05:30 iron,carbonyl 65 mg-vitamin C 125 1 tab PO DAILY 12/01/24 02/02/25 02/02/25 05:30 mg tablet,delayed release (Vitron-C) magnesium 250 mg tablet 250 mg PO DAILY 12/01/24 02/02/25 02/02/25 05:30 ondansetron 4 mg disintegrating 4 mg translingual Q8H PRN 12/01/24 02/02/25 Unknown tablet NAUSEA/VOMITING phenylephrine HCl 10 mg tablet 10 mg PO Q6H PRN SINUS 12/01/24 12/01/24 12/01/24 (Sudafed PE) CONGESTION/PAIN labetalol 200 mg tablet 200 mg PO BID 02/02/25 02/02/25 02/02/25 13:00 omeprazole 20 mg tablet,delayed 20 mg PO DAILY 02/02/25 02/02/25 02/02/25 05:30 release Active Medications Generic Name Dose Route Start Last Admin Trade Name Vin PRN Reason Stop Dose Admin Lactated Ringer's 1,000 mls @ 125 mls/hr 02/02/25 19:00 02/02/25 23:45 Lr IV 02/04/25 18:59 999 mls/hr .Q8H PRN Infusion L&D Protocol Protocol Penicillin G Potassium 3 mu/ 106 mls @ 100 mls/hr 02/02/25 22:00 02/02/25 23:29 Dextrose IV 02/12/25 21:59 100 mls/hr Q4H PRN Administration GBS(+) Until Delivery Oxytocin 30 units in 500 mls @ 9 mls/hr 02/02/25 19:03 02/02/25 23:30 Pitocin 30 Units/Nss IV 02/04/25 19:02 0.54 units/hr .Q24H PRN 9 mls/hr Labor Induction/Augmentation Titration Protocol 0.54 UNITS/HR Past Medical History Medical History No acute medical problems Anxiety ADHD Past Surgical History Surgical History Hx of tonsillectomy History of appendectomy Social History Smoking Status: Current every day smoker Smoking cigarettes per day: 5 Do You Dip or Chew Tobacco: No Hx Alcohol Use: No Hx Substance Use: No substance use type: does not use Physical Exam Vital Signs Last Vital Signs Temp 37.1 C 02/02/25 23:03 Pulse 106 H 02/03/25 00:10 Resp 18 02/02/25 23:03 BP 143/81 H 02/03/25 00:10 Pulse Ox 98 02/03/25 00:08 O2 Del Method Room Air 02/02/25 19:31 Testing Laboratory Results 02/02/25 19:38 02/02/25 17:26 Urine Color Yellow 02/02/25 16:50 Urine Appearance Cloudy (Clear) A 02/02/25 16:50 Urine pH 6.5 (4.5-7.5) 02/02/25 16:50 Ur Specific [place] 1.031 (1.000-1.030) H 02/02/25 16:50 Urine Protein 1+ (Negative) H 02/02/25 16:50 Urine Glucose (UA) Negative (Negative) 02/02/25 16:50 Urine Ketones Trace (Negative) H 02/02/25 16:50 Urine Nitrite Negative (Negative) 02/02/25 16:50 Ur Leukocyte Esterase 1+ (Negative) H 02/02/25 16:50 Urine WBC (Auto) 21-50 /hpf (0-5) H 02/02/25 16:50 Urine RBC (Auto) 0-2 /hpf (0-2) 02/02/25 16:50 U Hyaline Cast (Auto) 3-5 /lpf (0-2) H 02/02/25 16:50 U Epithel Cells (Auto) >20 /hpf (0-2) H 02/02/25 16:50 Urine Bacteria (Auto) 4+ (None Seen) H 02/02/25 16:50
[2025-02-03] MEDS: fentANYL 2 MCG/ML BUPIVacaine 0.125%-NSS 100ML BAG ONE (00:12)
[2025-02-03] MEDS: BUPIVACAINE 0.25% PF 30 ML VIAL ONE (00:15)
[2025-02-03] MEDS: SODIUM CHLORIDE 0.9% PF INJ 10 ML VIAL ONE (00:16)
[2025-02-03] MEDS: LIDOCAINE 2%/EPINEPHRINE 1:200,000 20 ML PF ONE (00:16)
[2025-02-03] MEDS: SODIUM CHLORIDE 0.9% PF INJ 10 ML VIAL EPI STA (00:17)
[2025-02-03] MEDS: BUPIVACAINE 0.25% PF 30 ML VIAL EPI STA (00:17)
[2025-02-03] MEDS: LIDOCAINE 2%/EPINEPHRINE 1:200,000 20 ML PF EPI STA (00:17)
--- NOTE | 2025-02-03 00:36 | Labor Progress Brief Note ---
Date of Service February 03, 2025 Assessment & Plan Admission and Anticipated Discharge Date Admission Date: February 02, 2025 Physical Exam Genitourinary: Manual OB Exam: + amniotic fluid OB Exam Monitor Tracing: + external FHT monitor used, + external uterine monitor used, + category I and + normal FHT variability Results & Data Vital Signs (Past 12 Hours) Vital Signs Temp Pulse Resp BP Pulse Ox O2 Del Method 02/03/25 00:32 94 H 138/79 02/03/25 00:28 100 H 98 02/03/25 00:25 101 H 150/89 H 02/03/25 00:23 101 H 99 02/03/25 00:20 104 H 148/79 H 02/03/25 00:18 98 02/03/25 00:18 102 H 02/03/25 00:18 98 H 145/84 H 02/03/25 00:16 95 H 18 136/83 02/03/25 00:14 103 H 135/78 02/03/25 00:13 96 H 98 02/03/25 00:12 98 H 18 136/80 02/03/25 00:10 106 H 143/81 H 02/03/25 00:08 102 H 141/97 H 98 02/03/25 00:03 106 H 98 02/02/25 23:58 99 02/02/25 23:58 108 H 02/02/25 23:57 107 H 02/02/25 23:57 138/95 02/02/25 23:53 99 02/02/25 23:53 101 H 02/02/25 23:03 18 02/02/25 23:03 37.1 C 18 02/02/25 22:48 110 H 02/02/25 22:48 119/73 02/02/25 22:02 20 02/02/25 22:02 20 02/02/25 21:48 108 H 02/02/25 21:48 134/63 02/02/25 20:48 108 H 02/02/25 20:48 148/89 H 02/02/25 19:31 Room Air 02/02/25 19:31 107 H 02/02/25 19:31 144/85 H 02/02/25 18:52 98 02/02/25 18:52 106 H 02/02/25 18:49 104 H 02/02/25 18:49 158/90 H 02/02/25 18:47 99 02/02/25 18:47 107 H 02/02/25 18:42 99 02/02/25 18:42 111 H 02/02/25 18:37 99 02/02/25 18:37 110 H 02/02/25 18:34 102 H 02/02/25 18:34 155/90 H 02/02/25 18:32 97 02/02/25 18:32 106 H 02/02/25 18:27 98 02/02/25 18:27 106 H 02/02/25 18:22 99 02/02/25 18:22 107 H 02/02/25 18:19 105 H 02/02/25 18:19 161/108 H 02/02/25 18:17 100 02/02/25 18:17 112 H 02/02/25 18:08 98 02/02/25 18:08 103 H 02/02/25 18:04 105 H 02/02/25 18:04 135/90 02/02/25 18:03 99 02/02/25 18:03 105 H 02/02/25 17:58 99 02/02/25 17:58 103 H 02/02/25 17:53 100 02/02/25 17:53 106 H 02/02/25 17:48 99 02/02/25 17:48 105 H 02/02/25 17:43 99 02/02/25 17:43 105 H 02/02/25 17:36 99 02/02/25 17:36 108 H 02/02/25 17:31 98 02/02/25 17:31 105 H 02/02/25 17:27 111 H 02/02/25 17:27 159/92 H 02/02/25 17:26 99 02/02/25 17:26 108 H 02/02/25 17:21 99 02/02/25 17:21 106 H 02/02/25 17:17 108 H 02/02/25 17:17 160/90 H 02/02/25 17:16 98 02/02/25 17:16 107 H 02/02/25 17:11 99 02/02/25 17:11 107 H 02/02/25 17:10 37.2 C 02/02/25 17:07 105 H 02/02/25 17:07 159/95 H 02/02/25 17:06 99 02/02/25 17:06 106 H 02/02/25 17:02 Room Air 02/02/25 17:01 99 02/02/25 17:01 109 H 02/02/25 16:58 109 H 147/91 H 02/02/25 16:56 109 H 99 02/02/25 16:51 114 H 99 02/02/25 16:47 37.2 C 112 H 22 150/96 H 02/02/25 16:46 110 H 100 02/02/25 16:41 111 H 99 02/02/25 16:34 111 H 141/90 H
[2025-02-03] MEDS: ACETAMINOPHEN 325 MG TAB PO PRN ×2 (05:41→11:40)
[2025-02-03] MEDS ORDERED: ACETAMINOPHEN 500 MG TAB PO PRN (05:45)
[2025-02-03] MEDS ORDERED: HYDROCORTISONE ACETATE 25 MG SUPP PR PRN (05:45)
[2025-02-03] MEDS ORDERED: OXYTOCIN 30 UNITS/NSS 30 UNITS/500 ML BAG IV PRN (05:45)
--- NOTE | 2025-02-03 05:46 | History & Physical Report ---
Date of Service February 03, 2025 Assessment & Plan Admission and Anticipated Discharge Date Admission Date: February 02, 2025 History of Present Illness Primary Care Provider: Bess King MD Allergies Allergy/AdvReac Type Severity Reaction Status Date / Time No Known Allergies Allergy Verified 02/02/25 16:45 Home Medications Medication Instructions Recorded Confirmed Type dextroamphetamine-amphetamine ER 30 mg PO DIRECTED 10/20/20 02/02/25 History 30 mg 24hr capsule,extend release vits no.124-ferrous fum 1 tab PO DAILY 08/17/23 12/01/24 History 27 mg iron-folic acid 800 mcg tablet ( Vitamin) acetaminophen 325 mg tablet 1,000 mg PO DIRECTED PRN Pain 12/01/24 02/02/25 History (Tylenol) cyanocobalamin (vitamin B-12) 1,000 mcg PO DAILY 12/01/24 02/02/25 History 1,000 mcg tablet (Vitamin B-12) dextroamphetamine-amphetamine ER 25 mg PO QAM 12/01/24 02/02/25 History 25 mg 24hr capsule,extend release docusate sodium 100 mg capsule 100 mg PO DAILY 12/01/24 02/02/25 History iron,carbonyl 65 mg-vitamin C 125 1 tab PO DAILY 12/01/24 02/02/25 History mg tablet,delayed release (Vitron-C) magnesium 250 mg tablet 250 mg PO DAILY 12/01/24 02/02/25 History ondansetron 4 mg disintegrating 4 mg translingual Q8H PRN 12/01/24 02/02/25 History tablet NAUSEA/VOMITING phenylephrine HCl 10 mg tablet 10 mg PO Q6H PRN SINUS 12/01/24 12/01/24 History (Sudafed PE) CONGESTION/PAIN labetalol 200 mg tablet 200 mg PO BID 02/02/25 02/02/25 History omeprazole 20 mg tablet,delayed 20 mg PO DAILY 02/02/25 02/02/25 History release Patient History Medical History No acute medical problems Anxiety ADHD Surgical History Hx of tonsillectomy History of appendectomy Social History Smoking Status: Current every day smoker Tobacco Type: Cigarettes Cigarettes Per Day: 5; Second Hand Exposure: Yes; Do You Dip or Chew Tobacco: No; Tobacco Cessation Education Requested by Patient: No Hx Alcohol Use: No Hx Substance Use: No Preferred Language: German [employer] Required: No Beliefs That Will Affect Care: None marital status: Life Partner Current Living Situation: Significant Other current occupational status: unemployed Feels Safe at Home: Yes Safety Concerns: Feels Safe At This Time Assistive Devices: None Results & Data Vital Signs (Past 12 Hours) Vital Signs Temp Pulse Resp BP Pulse Ox O2 Del Method 02/03/25 05:34 98 H 140/73 02/03/25 05:19 123 H 93 02/03/25 05:14 100 02/03/25 05:14 119 H 02/03/25 05:14 99 H 92 02/03/25 05:09 102 H 100 02/03/25 05:04 96 H 98 02/03/25 04:59 122 H 98 02/03/25 04:54 94 H 97 02/03/25 04:52 99 H 94 02/03/25 04:49 81 95 02/03/25 04:46 86 94 02/03/25 04:44 89 94 02/03/25 04:41 84 93 02/03/25 04:39 89 95 02/03/25 04:38 92 H 131/80 02/03/25 04:34 95 02/03/25 04:34 91 H 02/03/25 04:34 91 H 93 02/03/25 04:29 99 H 93 02/03/25 04:28 89 92 02/03/25 04:24 37.0 C 112 H 20 147/84 H 02/03/25 04:23 103 H 88 L 02/03/25 04:22 96 H 93 02/03/25 04:18 98 H 91 02/03/25 04:16 81 94 02/03/25 04:13 84 95 02/03/25 04:08 98 02/03/25 04:08 103 H 02/03/25 04:08 93 H 138/72 02/03/25 04:06 84 94 02/03/25 04:03 86 96 02/03/25 03:58 89 96 02/03/25 03:54 98 H 134/82 94 02/03/25 03:53 98 H 98 02/03/25 03:48 103 H 97 02/03/25 03:43 92 H 97 02/03/25 03:38 103 H 96 02/03/25 03:37 96 H 134/107 H 02/03/25 03:33 102 H 98 02/03/25 03:28 106 H 96 02/03/25 03:23 97 H 129/68 97 02/03/25 03:19 88 93 02/03/25 03:18 98 H 97 02/03/25 03:13 99 H 97 02/03/25 03:08 94 H 132/65 95 02/03/25 03:05 93 H 93 02/03/25 03:03 84 95 02/03/25 02:58 94 H 97 02/03/25 02:54 98 H 120/59 L 93 02/03/25 02:53 102 H 96 02/03/25 02:48 97 H 97 02/03/25 02:44 91 H 93 02/03/25 02:43 103 H 97 02/03/25 02:38 98 H 114/62 96 02/03/25 02:37 97 H 93 02/03/25 02:33 96 H 96 02/03/25 02:31 93 H 93 02/03/25 02:28 91 H 94 02/03/25 02:26 95 H 94 02/03/25 02:23 96 02/03/25 02:23 100 H 02/03/25 02:23 95 H 127/65 02/03/25 02:20 96 H 94 02/03/25 02:18 94 H 94 02/03/25 02:15 91 H 94 02/03/25 02:13 101 H 96 02/03/25 02:08 97 H 96 02/03/25 02:07 97 H 119/60 02/03/25 02:03 101 H 97 02/03/25 01:58 99 H 96 02/03/25 01:57 18 02/03/25 01:57 36.9 C 18 02/03/25 01:54 98 H 121/72 02/03/25 01:53 100 H 97 02/03/25 01:48 101 H 97 02/03/25 01:43 103 H 98 02/03/25 01:38 106 H 99 02/03/25 01:37 108 H 124/69 02/03/25 01:33 115 H 98 02/03/25 01:28 99 H 96 02/03/25 01:24 99 H 121/65 02/03/25 01:23 97 H 96 02/03/25 01:18 102 H 98 02/03/25 01:13 105 H 97 02/03/25 01:08 97 02/03/25 01:08 98 H 02/03/25 01:08 103 H 122/73 02/03/25 01:03 95 H 97 02/03/25 00:58 96 H 96 02/03/25 00:53 106 H 121/69 96 02/03/25 00:48 102 H 98 02/03/25 00:47 18 02/03/25 00:47 36.8 C 18 02/03/25 00:43 101 H 97 02/03/25 00:38 99 H 96 02/03/25 00:37 108 H 119/83 02/03/25 00:36 94 H 140/78 02/03/25 00:33 104 H 98 02/03/25 00:32 94 H 138/79 02/03/25 00:30 20 02/03/25 00:30 20 02/03/25 00:28 100 H 98 02/03/25 00:25 101 H 150/89 H 02/03/25 00:23 101 H 99 02/03/25 00:20 104 H 148/79 H 02/03/25 00:18 98 02/03/25 00:18 102 H 02/03/25 00:18 98 H 145/84 H 02/03/25 00:16 95 H 18 136/83 02/03/25 00:14 103 H 135/78 02/03/25 00:13 96 H 98 02/03/25 00:12 98 H 18 136/80 02/03/25 00:10 106 H 143/81 H 02/03/25 00:08 102 H 141/97 H 98 02/03/25 00:03 106 H 98 02/02/25 23:58 99 02/02/25 23:58 108 H 02/02/25 23:57 107 H 02/02/25 23:57 138/95 02/02/25 23:53 99 02/02/25 23:53 101 H 02/02/25 23:03 18 02/02/25 23:03 37.1 C 18 02/02/25 22:48 110 H 02/02/25 22:48 119/73 02/02/25 22:02 20 02/02/25 22:02 20 02/02/25 21:48 108 H 02/02/25 21:48 134/63 02/02/25 20:48 108 H 02/02/25 20:48 148/89 H 02/02/25 19:31 Room Air 02/02/25 19:31 107 H 02/02/25 19:31 144/85 H 02/02/25 18:52 98 02/02/25 18:52 106 H 02/02/25 18:49 104 H 02/02/25 18:49 158/90 H 02/02/25 18:47 99 02/02/25 18:47 107 H 02/02/25 18:42 99 02/02/25 18:42 111 H 02/02/25 18:37 99 02/02/25 18:37 110 H 02/02/25 18:34 102 H 02/02/25 18:34 155/90 H 02/02/25 18:32 97 02/02/25 18:32 106 H 02/02/25 18:27 98 02/02/25 18:27 106 H 02/02/25 18:22 99 02/02/25 18:22 107 H 02/02/25 18:19 105 H 02/02/25 18:19 161/108 H 02/02/25 18:17 100 02/02/25 18:17 112 H 02/02/25 18:08 98 02/02/25 18:08 103 H 02/02/25 18:04 105 H 02/02/25 18:04 135/90 02/02/25 18:03 99 02/02/25 18:03 105 H 02/02/25 17:58 99 02/02/25 17:58 103 H 02/02/25 17:53 100 02/02/25 17:53 106 H 02/02/25 17:48 99 02/02/25 17:48 105 H Code Status & VTE Plan VTE Prophylaxis Plan VTE Prophylaxis will be ordered: No
--- NOTE | 2025-02-03 05:49 | Delivery Summary ---
Vaginal Delivery Summary Date of Service February 03, 2025 Vaginal Delivery Summary live male AGUSTIN with delayed cord clamping and Apgars 8/9 weight pending. Cord blood obtained followed by spontaneous delivery of intact placenta. No tears. QBL 105 ml. Final sponge and instrument count are correct. Mom and baby stable.
[2025-02-03] MEDS: DIPHTHER/TETAN/PERTUS Vaccine (Tdap, Adol/Adult) 0.5mL IM ONE (06:42)
--- NOTE | 2025-02-03 08:22 | Anesthesia Procedure Note ---
Date of Service February 03, 2025 Anesthesia Post Epidural Note Vital Signs Vital Signs: Temp Pulse Resp BP Pulse Ox O2 Del Method 37.0 C 103 H 16 154/80 H 93 Room Air 02/03/25 04:24 02/03/25 07:49 02/03/25 07:04 02/03/25 07:49 02/03/25 05:19 02/02/25 19:31 Pain Intensity Abdomen: Pain Intensity: 0 Head: Pain Intensity: 7 Notes Mental Status: alert / awake / arousable and participated in evaluation Nausea / Vomiting: adequately controlled Pain: adequately controlled Airway Patency, RR, SpO2: stable & adequate BP & HR: stable & adequate Hydration State: stable & adequate Neuraxial Anesthesia: was administered and sensory block is resolving Anesthetic Complications: no major complications apparent and Pt Satisfied with anesthetic care Epidural: Removed without complications and With tip intact
[2025-02-03] MEDS: CYANOCOBALAMIN (B-12) 500 MCG TABLET PO SCH (08:37)
[2025-02-03] MEDS: PRENATAL VITAMIN 1 TAB PO SCH (08:37)
[2025-02-03] MEDS: DOCUSATE SODIUM 100 MG CAP PO SCH (08:37)
[2025-02-03] MEDS: FERROUS SULFATE 325 MG TAB PO SCH (08:37)
[2025-02-03] MEDS: IBUPROFEN 600 MG TAB PO PRN (08:37)
[2025-02-03] MEDS: MAGNESIUM OXIDE 400 MG TAB PO SCH (08:37)
[2025-02-03] MEDS: BENZOCAINE 20% SPRY 85 APPLN/85 GM CAN EXT PRN (08:48)
[2025-02-03] MEDS ORDERED: NON-FORMULARY MEDICATION (Iron,Carbonyl-Vitamin C [Vitron-C] 65 mg iron- 125 mg Tablet,Del PO SCH (09:00)
[2025-02-03] MEDS ORDERED: DOCUSATE SODIUM 100 MG CAP PO SCH (09:00)
[2025-02-03] MEDS: LABETALOL HCL 200 MG TAB PO SCH (09:47)
[2025-02-03] MEDS: DEXTROAMPHETAMINE/AMPHETAMINE ER 5 MG CAP PO SCH (10:06)
[2025-02-03] MEDS ORDERED: DEXTROAMPHETAMINE/AMPHETAMINE ER 5 MG CAP PO SCH (12:00)
[2025-02-03] MEDS ORDERED: DEXTROAMPHETAMINE/AMPHETAMINE ER 10 MG CAP PO SCH (12:00)
[2025-02-03] MEDS: DEXTROAMPHETAMINE/AMPHETAMIME IR 5 MG TAB PO SCH (13:03)
[2025-02-03] MEDS ORDERED: SULFA/TRIMETH 400/80MG TAB PO SCH (16:30)
[2025-02-03] MEDS: SULFAMETHOXAZOLE/TRIMETHOPRIM DS 800/160MG TAB PO SCH (17:00)
[2025-02-04 06:07] LABS: Hematocrit (blood only) 32.1 % (37.0-47.0); Hemoglobin 10.8 g/dl (12.0-16.0); Mean Corpuscular Hemoglobin 32.7 pg (25.0-34.0); Mean Corpuscular Volume 97.3 fL (80.0-100.0); Platelet Count 128 K/uL (130-400); RDW Standard Deviation 47.8 fL (36.4-46.3); Red Blood Count 3.30 M/uL (4.20-5.40); White Blood Count 8.16 K/ul (4.8-10.8)
[2025-02-04 07:27] VITALS: RESP 18
--- NOTE | 2025-02-04 08:40 | Obstetrical Progress Note ---
Date of Service February 04, 2025 Assessment & Plan Admission and Anticipated Discharge Date Admission Date: February 02, 2025 Subjective Patient is seen and examined. She feels well, no complaints. Ambulating without dizziness Voiding without difficulty Tolerating regular diet with out N&V Bleeding is minimal No fever/ chills/ CP/ SOB/ N&V/ Leg pain Breast feeding without problems Vital Signs Temp Pulse Resp BP Pulse Ox O2 Del Method 02/04/25 07:26 36.7 C 84 18 127/83 98 Room Air 02/04/25 04:00 36.5 C 106 H 16 138/84 98 Room Air 02/03/25 23:45 36.6 C 97 H 17 122/76 97 Room Air 02/03/25 21:57 146/75 H Lab Results 02/02/25 02/02/25 02/02/25 Range/Units 16:50 17:26 17:39 WBC 8.92 (4.8-10.8) K/ul RBC 3.88 L (4.20-5.40) M/uL Hgb 12.8 (12.0-16.0) g/dl Hct 36.4 L (37.0-47.0) % MCV 93.8 (80.0-100.0) fL MCH 33.0 (25.0-34.0) pg MCHC 35.2 (32.0-36.0) g/dL RDW Std Deviation 45.3 (36.4-46.3) fL RDW Coeff of Anibal 13.3 (11.5-14.5) % Plt Count 175 (130-400) K/uL MPV 12.2 (9.4-12.4) fL Immature Gran % (Auto) 0.4 % Neut % (Auto) 74.3 % Lymph % (Auto) 15.4 % [place] % (Auto) 7.8 % Eos % (Auto) 1.7 % Baso % (Auto) 0.4 % Neut # (Auto) 6.62 H (1.40-6.50) K/uL Lymph # (Auto) 1.37 (1.20-3.40) K/uL [place] # (Auto) 0.70 H (0.11-0.59) K/uL Eos # (Auto) 0.15 (0.00-0.50) K/uL Baso # (Auto) 0.04 (0.00-0.20) K/uL Immature Gran # (Auto) 0.04 (0.01-0.20) K/uL Sodium 134 L (136-145) mmol/L Potassium 4.2 (3.5-5.1) mmol/L Chloride 106 (98-107) mmol/L Carbon Dioxide 22 (21-32) mmol/L Anion Gap 6 (3-11) BUN 12 (6-23) mg/dl Creatinine 0.69 (0.6-1.2) mg/dl Est Cr Clr Drug Dosing 135.8 ml/min eGFR 118.92 BUN/Creatinine Ratio 17.4 (10-20) Glucose 85 (70-99(Fasting)) mg/dl Uric Acid 5.4 (2.6-7.2) mg/dl Calcium 8.7 (8.6-10.3) mg/dl Total Bilirubin 0.2 (0.2-1.0) mg/dl Direct Bilirubin 0.0 (0-0.2) mg/dl AST 14 (13-39) U/L ALT 10 (7-52) U/L Alkaline Phosphatase 126 H (34-104) U/L Lactate Dehydrogenase 184 (86-244) U/L Total Protein 5.9 L (6.0-8.3) gm/dl Albumin 3.1 L (3.4-5.0) gm/dl Globulin 2.8 (2.5-4.0) gm/dl Albumin/Globulin Ratio 1.1 (0.9-2) Urine Color Yellow Urine Appearance Cloudy A (Clear) Urine pH 6.5 (4.5-7.5) Ur Specific [place] 1.031 H (1.000-1.030) Urine Protein 1+ H (Negative) Urine Glucose (UA) Negative (Negative) Urine Ketones Trace H (Negative) Urine Blood Negative (Negative) Urine Nitrite Negative (Negative) Urine Bilirubin Negative (Negative) Urine Urobilinogen Negative (Negative) Ur Leukocyte Esterase 1+ H (Negative) Urine WBC (Auto) 21-50 H (0-5) /hpf Urine RBC (Auto) 0-2 (0-2) /hpf U Hyaline Cast (Auto) 3-5 H (0-2) /lpf U Epithel Cells (Auto) >20 H (0-2) /hpf Urine Bacteria (Auto) 4+ H (None Seen) Ur Random Creatinine 200.3 mg/dl U Random Total Protein 48.8 H (0-11.9) mg/dl Protein/Creatinin Ratio 0.2 (0-0.2) Urine Comment Treponema pallidum Ab (Negative) Blood Type A Positive Antibody Screen NEGATIVE 02/02/25 02/04/25 Range/Units 19:38 05:38 WBC 8.23 8.16 (4.8-10.8) K/ul RBC 3.83 L 3.30 L (4.20-5.40) M/uL Hgb 12.7 10.8 L (12.0-16.0) g/dl Hct 36.2 L 32.1 L (37.0-47.0) % MCV 94.5 97.3 (80.0-100.0) fL MCH 33.2 32.7 (25.0-34.0) pg MCHC 35.1 33.6 (32.0-36.0) g/dL RDW Std Deviation 46.1 47.8 H (36.4-46.3) fL RDW Coeff of Anibal 13.2 13.4 (11.5-14.5) % Plt Count 172 128 L (130-400) K/uL MPV 12.4 12.0 (9.4-12.4) fL Immature Gran % (Auto) % Neut % (Auto) % Lymph % (Auto) % [place] % (Auto) % Eos % (Auto) % Baso % (Auto) % Neut # (Auto) (1.40-6.50) K/uL Lymph # (Auto) (1.20-3.40) K/uL [place] # (Auto) (0.11-0.59) K/uL Eos # (Auto) (0.00-0.50) K/uL Baso # (Auto) (0.00-0.20) K/uL Immature Gran # (Auto) (0.01-0.20) K/uL Sodium (136-145) mmol/L Potassium (3.5-5.1) mmol/L Chloride (98-107) mmol/L Carbon Dioxide (21-32) mmol/L Anion Gap (3-11) BUN (6-23) mg/dl Creatinine (0.6-1.2) mg/dl Est Cr Clr Drug Dosing ml/min eGFR BUN/Creatinine Ratio (10-20) Glucose (70-99(Fasting)) mg/dl Uric Acid (2.6-7.2) mg/dl Calcium (8.6-10.3) mg/dl Total Bilirubin (0.2-1.0) mg/dl Direct Bilirubin (0-0.2) mg/dl AST (13-39) U/L ALT (7-52) U/L Alkaline Phosphatase (34-104) U/L Lactate Dehydrogenase (86-244) U/L Total Protein (6.0-8.3) gm/dl Albumin (3.4-5.0) gm/dl Globulin (2.5-4.0) gm/dl Albumin/Globulin Ratio (0.9-2) Urine Color Urine Appearance (Clear) Urine pH (4.5-7.5) Ur Specific [place] (1.000-1.030) Urine Protein (Negative) Urine Glucose (UA) (Negative) Urine Ketones (Negative) Urine Blood (Negative) Urine Nitrite (Negative) Urine Bilirubin (Negative) Urine Urobilinogen (Negative) Ur Leukocyte Esterase (Negative) Urine WBC (Auto) (0-5) /hpf Urine RBC (Auto) (0-2) /hpf U Hyaline Cast (Auto) (0-2) /lpf U Epithel Cells (Auto) (0-2) /hpf Urine Bacteria (Auto) (None Seen) Ur Random Creatinine mg/dl U Random Total Protein (0-11.9) mg/dl Protein/Creatinin Ratio (0-0.2) Urine Comment Treponema pallidum Ab Negative (Negative) Blood Type Antibody Screen PE: General: Alert, orientedx3, NAD Abd: soft, NT, fundus firm, below Umbilicus Perineum intact, Lochia rubra minimal Ext; NT, 2+ edema, Homans sign neg/ neg AP: 30 yo s/p , ppd# 1, s/o IOL for GHT VSS Afebrile doing well BP's under control with Labetalol and Procardia Continue routine care Desires d/c today All questions were answered Discussed when to call D/C home afternoon, f/u in office and PCP Results & Data Vital Signs (Past 12 Hours) Vital Signs Temp Pulse Resp BP Pulse Ox O2 Del Method 02/04/25 07:26 36.7 C 84 18 127/83 98 Room Air 02/04/25 04:00 36.5 C 106 H 16 138/84 98 Room Air 02/03/25 23:45 36.6 C 97 H 17 122/76 97 Room Air 02/03/25 21:57 146/75 H
[2025-02-04] MEDS: NIFEdipine EXTENDED REL 30 MG TABCR PO SCH (09:09)
[2025-02-04 15:11] VITALS: PULSE 94; TEMP 98.2; O2SAT 99
[2025-02-04 20:20] VITALS: BP 134/83
== END 2025-02-04 21:15 | disposition home health service (06) | DRG 807 ==
LOC: OPB 16:13 → 4S1 16:15 → 4E2 02-03 16:15